=== PATIENT | female | born 1945 | race Caucasian/White ===

== ENCOUNTER 2017-10-29 14:41 | Emergency (ER) | payer MEDICARE, MEDICAID, SELFPAY ==
[2017-10-29 15:23] VITALS: BP 160/69; PULSE 69; RESP 18; TEMP 36.6; O2SAT 98
[2017-10-29 15:40] LABS: Bilirubin Negative (Negative); Blood Moderate (Negative); Clarity Sl Cloudy; Glucose Negative (Negative); Ketones Trace mg/dL (Negative); Leukocyte Esterase Large (Negative); Nitrite Negative (Negative); Specific Gravity >= 1.030 (1.005-1.025); Urobilinogen 0.2 EU/dL (Up TO 0.2); pH 5.5 (5-8)
[2017-10-29 15:47] LABS: C & S Indicated? Yes; RBC >50 (0-2); WBC >50 HPF (0-5)
--- NOTE | 2017-10-29 15:55 | W.ED.GENAD ---
Discharge Plan Disposition Patient Disposition: HOME Discharge Details Chief Complaint: Urinary Clinical Impression: UTI (urinary tract infection) Primary Care Provider: Lillian uHggins ED Provider: Luann Gaspar Home Meds and New Rx's Prescriptions: New cephalexin 250 mg/5 mL suspension for reconstitution 500 mg PO BID 5 Days Qty: 100 RF: 0 Continue multivitamin [Daily Multi-Vitamin] 1 EACH tablet 1 ea PO DAILY RF: 0 metoprolol tartrate 100 MG tablet 100 mg PO BID Qty: 180 RF: 0 apixaban [Eliquis] 5 MG tablet 5 mg PO BID Qty: 60 RF: 3 alprazolam [Xanax] 0.25 MG tablet 0.25 mg PO BID PRN PRN (Reason: Anxiety) Qty: 14 RF: 0 Discharge Instructions Instructions: Urinary Tract Infection in Women (ED) Additional Instructions: Encourage hydration. Please take antibiotics as prescribed. Even if symptoms improve please finish the entire course. If you develop adverse reactions please contact the department or your primary care provider. Please follow-up with primary care provider this week if symptoms persist. If you develop flank pain, fever/chills, abdominal pain, nausea vomiting or other new/worsening symptoms please seek care urgently once again. Referrals: Lillian Huggins MD [Primary Care Provider] - Discharge Data Discharge Date/Time-TO BE ENTERED AT DEPARTURE: 10/29/17 16:22 Medical Decision Making MDM Narrative Medical decision making narrative: Patient presents today with concern for urinary tract infection. Please see UTI. On exam, patient appears nontoxic. No pain is elicited with palpation of the abdomen. No CVA tenderness. Urinalysis is suggestive of urinary tract infection. Patient typically responds quite well to oral Bactrim. However, I did contact the patient's local pharmacy and reviewed her previous antibiotic usage. Patient did have Bactrim in July. Literature suggest not to re-dose of Bactrim within 6 months. Patient still will be placed on Keflex. She does have an allergy to amoxicillin but this has been topical historically and localized to finger tip. She believes she has been on Keflex historically but is not sure. Patient was encouraged to hydrate. We discussed new/worsening symptoms when to seek care urgently once again. Advised follow-up with primary care this week for reevaluation. All the questions and concerns were addressed and she is in agreement Lab Data Lab Results 10/29/17 Range/Units 13:30 Urine Color Yellow (Yellow) Urine Clarity Sl cloudy Urine pH 5.5 (5-8) Ur Specific Hardin >= 1.030 H (1.005-1.025) Urine Protein 100 H (Negative) mg/dL Urine Ketones Trace H (Negative) mg/dL Urine Blood Moderate H (Negative) Urine Nitrite Negative (Negative) Urine Bilirubin Negative (Negative) Urine Urobilinogen 0.2 (Up TO 0.2) EU/dL Ur Leukocyte Esterase Large H (Negative) Urine RBC >50 H (0-2) Urine WBC >50 (0-5) HPF Ur Epithelial Cells Not Applicable Urine Crystals Not Applicable Urine Bacteria Not Applicable Urine Mucus Not Applicable Ur Culture Indicated? Yes Urine Glucose Negative (Negative) mg/dL HPI - General Adult General Mode of arrival: ambulatory. Date/Time Provider Initiated Documentation: 10/29/17 15:46. Limitations to Documentation: no limitations. Information obtained by: patient. HPI Narrative: Patient is a 71-year-old female presenting today with chief complaint of UTI. Patient reports that she has dysuria, increased frequency and urgency which began to day. She reports that she has had multiple urinary tract infections in the past. Most recently was several months ago. Reports that she typically takes Bactrim for urinary tract infections but is unable to take pills. She denies any flank pain. States she has had abdominal pain low centrally and reports this is burning. Reports that this waxes and wanes. She states that this pain is typical when she has a urinary tract infection. She denies any fevers or chills. Denies any hematuria. Denies any changes in her bowel habits. Related Data Home Medications Medication Instructions Recorded Confirmed multivitamin [Daily Multi-Vitamin] 1 ea PO DAILY 11/23/16 10/29/17 Previous Rx's Medication Instructions Recorded apixaban [Eliquis] 5 mg PO BID #60 tab 12/20/16 alprazolam [Xanax] 0.25 mg PO BID PRN PRN #14 tablet 01/19/17 cephalexin 500 mg PO BID 5 Days #100 ml 10/29/17 Allergies Allergy/AdvReac Type Severity Reaction Status Date / Time amoxicillin [Amoxicillin] AdvReac Mild Topical Unverified 10/29/17 15:27 Irritation General Stated Complaint: Urinary AURE: 4 Review of Systems Constitutional Reports as per HPI, Denies chills and Denies fever(s) Cardiovascular Denies chest pain, Denies chest pain with activity, Denies diaphoresis and Denies dyspnea Respiratory Denies cough and Denies dyspnea Gastrointestinal Reports as per HPI Genitourinary Reports as per HPI Musculoskeletal Denies back pain Integumentary/Breasts Denies rash and Denies skin pain PFS Social History Smoking/Tobacco Use Status: Former Tobacco Use Exam Const General: cooperative, healthy appearing, comfortable and no acute distress Nutritional Appearance: overweight Orientation: alert Resp Effort & Inspection: normal respiratory effort, able to speak in complete sentences and no respiratory distress Auscultation: clear to auscultation bilaterally Cardio Rhythm: regular rhythm Heart Sounds: S1 normal and S2 normal GI Inspection: normal to inspection and non-distended Palpation: soft, not firm, no guarding and nontender Back/Spine/Pelvis Back: no CVA tenderness Skin General skin exam: no rashes or lesions noted Neuro General: alert and awake Cognition: normal cognition Speech: speech normal Gait: normal gait Course Vital Signs Temperature 36.6 C 10/29/17 15:23 Pulse 69 10/29/17 15:23 Respiratory Rate 18 10/29/17 15:23 Blood Pressure 160/69 H 10/29/17 15:23 Pulse Oximetry 98 10/29/17 15:23 Temperature 36.6 C 10/29/17 15:23 Pulse 69 10/29/17 15:23 Respiratory Rate 18 10/29/17 15:23 Blood Pressure 160/69 H 10/29/17 15:23 Pulse Oximetry 98 10/29/17 15:23 Lab/Test Results Lab/Test Results: Laboratory Tests 10/29/17 13:30 Urine Color Yellow Urine Clarity Sl cloudy Urine pH 5.5 Ur Specific Hardin >= 1.030 H Urine Protein 100 H Urine Ketones Trace H Urine Blood Moderate H Urine Nitrite Negative Urine Bilirubin Negative Urine Urobilinogen 0.2 Ur Leukocyte Esterase Large H Urine RBC >50 H Urine WBC >50 Ur Epithelial Cells Not Applicable Urine Crystals Not Applicable Urine Bacteria Not Applicable Urine Mucus Not Applicable Ur Culture Indicated? Yes Urine Glucose Negative
== END 2017-10-29 16:22 | disposition home or self-care (01) ==
PROVIDERS: Student in an Organized Health Care Education/Training Program; Emergency Provider Physician Assistant; PCP Family Medicine
DX: N39.0 Urinary tract infection, site not specified (principal); B97.89 Other viral agents as the cause of diseases classified elsewhere
CPT/HCPCS: 99283; 81003; 81015; 87086

== ENCOUNTER → 2017-11-10 14:28 | Outpatient (BNVA) | payer MEDICARE, MEDICAID, SELFPAY | PROVIDERS: PCP Family Medicine; Visit Provider Urology | DX: R30.0 Dysuria (principal); N39.0 Urinary tract infection, site not specified | CPT/HCPCS: 81003; 99213 ==

== ENCOUNTER 2017-12-02 00:27 | Outpatient (CLI) | payer MEDICARE, MEDICAID, SELFPAY ==
--- NOTE | 2017-12-02 08:18 | DI.US_ITS ---
SYMPTOMS/DIAGNOSIS: RECURRENT UTI, N39.0, ? STONE/HYDRO RENAL ULTRASOUND: The right kidney measures 8.6 cm in length. The left kidney measures 8.9 cm in length. The parenchymal thickness appears normal. No stones or hydronephrosis is seen. The bladder was inadequately prepped with a volume of 19 cc's. Both ureteral jets were visualized. IMPRESSION: No evidence of hydronephrosis. The kidneys are small in size but otherwise unremarkable.
== END 2017-12-02 00:47 ==
PROVIDERS: PCP Family Medicine; Visit Provider Urology
DX: N39.0 Urinary tract infection, site not specified (principal); Z87.440 Personal history of urinary (tract) infections
CPT/HCPCS: 76770; 99213

== ENCOUNTER 2018-01-24 00:43 | Outpatient (CLI) | payer MEDICARE, MEDICAID, SELFPAY ==
--- NOTE | 2018-01-24 13:55 | DI.RAD_ITS ---
SYMPTOMS/DIAGNOSIS: OSTEOPENIA, M85.88 DEXA SCAN: Routine examination was performed. Evaluation of the lumbar spine shows a total T score of -0.3 and a Z score of 2.0. This is within normal limits. This compares with a total T score of -1.1 from 2007. Evaluation of the left hip shows a total T score of -1.4 and a Z score of 0.2. This is consistent with osteopenia and an increased fracture risk. This compares with a total T score of -1.9 from 2007. IMPRESSION: Osteopenia in the left hip.
== END 2018-01-24 01:03 ==
PROVIDERS: PCP Family Medicine; Visit Provider Family Medicine
DX: M85.88 Other specified disorders of bone density and structure, other site (principal)
CPT/HCPCS: 77080

== ENCOUNTER 2018-04-03 15:13 | Outpatient (REF) | payer MEDICARE, MEDICAID, SELFPAY ==
[2018-04-03 18:37] LABS: HCT 43.8 % (36.0-46.0); HGB 13.9 g/dL (12.0-15.5); Mean Corp. HGB Concentration 31.7 g/dL (32.0-36.0); Mean Corpuscular Hemoglobin 32.6 pg (27.0-33.0); Mean Corpuscular Volume 102.6 fL (80-95); Mean Platelet Volume 12.6 fL (8.0-11.0); Platelet Count 208 x1000/uL (130-400); RBC 4.27 m/cumm (4.00-5.20); RBC Distribution Width 13.1 % (11.7-14.6); White Blood Cell Count 5.69 k/cumm (4.4-10.8)
[2018-04-03 18:45] LABS: ALT 33 U/L (12-78); AST 28 U/L (15-37); Albumin 3.4 g/dL (3.4-5.0); Alkaline Phosphatase 130 U/L (46-116); Anion Gap 4.7 mmol/L (3-11); BUN 16 mg/dL (7-18); Bilirubin, Total 0.3 mg/dL (0.2-1.0); CO2 31.3 mmol/L (21.0-32.0); CREATININE 0.81 mg/dL (0.55-1.02); Calcium 9.2 mg/dL (8.5-10.1); Chloride 105 mmol/L (98-107); Glucose 102 mg/dL (70-100); Potassium 4.9 mmol/L (3.5-5.1); Sodium 141 mmol/L (136-145); Total Protein 6.6 g/dL (6.4-8.2)
[2018-04-03 19:12] LABS: FREE T4 1.27 ng/dL (0.76-1.46)
== END 2018-04-03 15:33 ==
LOC: NCHCN 15:13
PROVIDERS: PCP Family Medicine; Visit Provider Family Medicine
DX: R53.83 Other fatigue (principal)
CPT/HCPCS: 80053; 85027; 84439; 84443

== ENCOUNTER → 2018-04-20 13:28 | Outpatient (BNVA) | payer MEDICARE, MEDICAID, SELFPAY | PROVIDERS: PCP Family Medicine; Visit Provider Urology | DX: Z87.440 Personal history of urinary (tract) infections (principal) | CPT/HCPCS: 99213 ==

== ENCOUNTER 2018-07-19 14:06 | Outpatient (REF) | payer MEDICARE, MEDICAID, SELFPAY | END 2018-07-19 14:26 | LOC: LBN 14:06 | PROVIDERS: PCP Family Medicine; Visit Provider Urology | DX: N39.0 Urinary tract infection, site not specified (principal) | CPT/HCPCS: 87086 ==

== ENCOUNTER → 2018-07-21 13:05 | Outpatient (BNVA) | payer MEDICARE, MEDICAID, SELFPAY | PROVIDERS: PCP Family Medicine; Visit Provider Urology | DX: N39.0 Urinary tract infection, site not specified (principal) | CPT/HCPCS: 99213 ==

== ENCOUNTER 2018-08-08 20:42 | Emergency (ER) | payer MEDICARE, MEDICAID, SELFPAY ==
[2018-08-08] VITALS (45 sets, daily range): BP systolic 104–185; BP diastolic 41–110; PULSE 49–131; RESP 10–28; TEMP 36.8; O2SAT 94–98
--- NOTE | 2018-08-08 21:12 | ED.GENADUL_ITS ---
Discharge Plan Disposition Patient Disposition: HOME Condition: Stable Discharge Details Chief Complaint: Palpitatns Clinical Impression: Atrial fibrillation with RVR Primary Care Provider: Lillian Huggins ED Provider: Quirino Ferguson Home Meds and New Rx's Prescriptions: No Action nitrofurantoin 25 mg/5 mL suspension 50 mg PO QID Qty: 240 RF: 2 multivitamin [Daily Multi-Vitamin] 1 EACH tablet 1 ea PO DAILY RF: 0 metoprolol tartrate 100 MG tablet 100 mg PO BID Qty: 180 RF: 0 apixaban [Eliquis] 5 MG tablet 5 mg PO BID Qty: 60 RF: 3 Discharge Instructions Instructions: Atrial Fibrillation (ED) Additional Instructions: follow up with your primary care provider within a week if you have chest pain/pressure, difficulty breathing or feel your heart rate is elevated return to the emergency department Medical Decision Making 72 yo female with hx of afib on eliquis who comes in with feeling irregular heart beat starting tonight. Denies any pain or pressure, no sob, diaphoresis or n/v. She states she sometimes misses her dose of eliquis and metoprolol and seems to do this quite frequently on history. She is in no distress, noted to be in afib with rvr rates ranging from 110-140 on exam. no other concerning findings on her exam at this time, will tx with dilt and monitor and check for electrolyte abnormalities and monitor. Given lack of chest pain or sob, no evidence of dvt, doubt entities such as acs or pe' pt's hr now in the 60's after 10mg IV dilt and feels better, still in afib. awaiting labs, bp stable labs unremarkable and hr stil well controlled. Will d/c home and she will take her oral metoprolol. She states she misses her metoprolol and eliquis due to abnormal sleep schedule. I am going to place her on our f/u list for care management to reach out to her to see if she would like services such as home health nursing to assist with medication management. Advised f/u with pcp within a week and return precautions given Differential Diagnosis afib, electrolyte abnormality, med noncompliance Medical Records Medical records reviewed: Yes I reviewed the patient's medical records. Lab Data Lab results reviewed: Yes I reviewed the patient's lab results. ECG Data Attestation: I personally reviewed and interpreted this ECG (s) as follows: Prior ECG tracings: not available for review Interpretation: afib, rate of 120, qtc 442 2nd ekg shows afib with rates of 80's, qtc 449 HPI General Mode of arrival: wheelchair . Date/Time Provider Initiated Documentation: 08/08/18 20:55 . Limitations to Documentation: no limitations . Information obtained by: patient . History of Present Illness 72 year old F presents to the emergency department with the chief complaint of palpitations, described as moderate, Quality is described as other (irregular), and is localized to the chest. No relieving factors improve symptom(s), No exacerbating factors reported . Patient notes no other symptoms.. Patient did receive the following treatments prior to arrival, none Related Data Home Medications Medication Instructions Recorded Confirmed multivitamin [Daily Multi-Vitamin] 1 ea PO DAILY 11/23/16 11/10/17 apixaban [Eliquis] 5 mg PO BID #60 tab 12/20/16 11/10/17 metoprolol tartrate 100 mg PO BID #180 tab-cap 02/16/17 11/10/17 nitrofurantoin 25 mg/5 mL oral 50 mg PO QID #240 ml 04/20/18 04/20/18 suspension Previous Rx's Medication Instructions Recorded apixaban [Eliquis] 5 mg PO BID #60 tab 12/20/16 metoprolol tartrate 100 mg PO BID #180 tab-cap 02/16/17 nitrofurantoin 25 mg/5 mL oral 50 mg PO QID #240 ml 04/20/18 suspension Allergies Allergy/AdvReac Type Severity Reaction Status Date / Time amoxicillin [Amoxicillin] AdvReac Mild Topical Verified 04/20/18 13:49 Irritation General Stated Complaint: Palpitatns AURE: 2 Review of Systems Review of Systems All systems reviewed & are unremarkable except as noted in HPI and below Constitutional Denies chills, Denies fever(s) and Denies weakness Cardiovascular Denies chest pain and Denies dyspnea Respiratory Denies dyspnea Gastrointestinal Denies abdominal pain, Denies nausea and Denies vomiting Genitourinary Denies dysuria Musculoskeletal Denies joint swelling Integumentary/Breasts Denies rash Neurologic Denies weakness PFSH Social History Smoking/Tobacco Use Status: Former Tobacco Use Alcohol Intake: never Drug use: Never Substance use type: does not use Do you feel safe at home: Yes Do you feel safe in your relationship?: Yes Exam Const General: no acute distress Orientation: alert HENMT Head: normal to inspection Ears: external ears normal General nose exam: external nose normal Mouth: moist mucous membranes Eyes General: appearance normal, both eyes and all related structures Neck Neck: normal visual inspection Resp Effort & Inspection: normal respiratory effort and able to speak in complete sentences Cardio Rate: tachycardic Skin General skin exam: no rashes or lesions noted Neuro General: alert and oriented x3 Extrem General: normal to inspection Psych Mental Status: mental status grossly normal Course Vital Signs Temperature 36.8 C 08/08/18 21:07 Pulse 131 H 08/08/18 21:07 Respiratory Rate 20 08/08/18 21:07 Blood Pressure 185/107 H 08/08/18 21:07 Pulse Oximetry 98 08/08/18 21:07 Temperature 36.8 C 08/08/18 21:07 Temperature Source Skin 08/08/18 21:07 Pulse 131 H 08/08/18 21:07 Respiratory Rate 20 08/08/18 21:07 Blood Pressure 185/107 H 08/08/18 21:07 Blood Pressure Position Sitting 08/08/18 21:07 Pulse Oximetry 98 08/08/18 21:07 Oxygen Delivery Method Room Air 08/08/18 21:07 Oxygen Flow Rate 0 08/08/18 21:07 Pain Level 0 08/08/18 21:07 Critical Care Time Critical Care Time: Yes Total Critical Care Time: 60 (minutes) Attestation: time spent administering IV diltiazem in a patient with afib with rvr, frequent monitoring and ecg/lab review on patient with potential to deteriorate at any time
[2018-08-08] MEDS: Normal Saline Flush 10 ML SYR IVP (21:25)
[2018-08-08] MEDS: Normal Saline 1,000 ML 1000 ML IV (21:26)
[2018-08-08] MEDS: dilTIAZem 25 MG/5 ML VIAL 20 MG IVP (21:27)
[2018-08-08 21:43] LABS: Absolute Basophil Count 0.02 k/cumm (0.0-0.2); Absolute Eosinophil Count 0.08 k/cumm (0.0-0.7); Absolute Lymphocyte Count 2.67 k/cumm (1.2-3.4); Absolute Monocyte Count 0.64 k/cumm (0.11-0.7); Absolute Neutrophil Count 3.47 k/cumm (1.2-6.7); Basophils % 0.3; Eosinophils % 1.2; HCT 45.8 % (36.0-46.0); HGB 14.8 g/dL (12.0-15.5); Lymphocytes % 38.8; Mean Corp. HGB Concentration 32.3 g/dL (32.0-36.0); Mean Corpuscular Hemoglobin 32.5 pg (27.0-33.0); Mean Corpuscular Volume 100.4 fL (80-95); Mean Platelet Volume 12.1 fL (8.0-11.0); Monocytes % 9.3; Neutrophils % 50.4; Platelet Count 207 x1000/uL (130-400); RBC 4.56 m/cumm (4.00-5.20); RBC Distribution Width 13.6 % (11.7-14.6); White Blood Cell Count 6.88 k/cumm (4.4-10.8)
[2018-08-08 22:28] LABS: ALT 35 U/L (12-78); AST 26 U/L (15-37); Albumin 3.7 g/dL (3.4-5.0); Alkaline Phosphatase 131 U/L (46-116); Anion Gap 11.5 mmol/L (3-11); BUN 16 mg/dL (7-18); Bilirubin, Total 0.4 mg/dL (0.2-1.0); CO2 27.5 mmol/L (21.0-32.0); CREATININE 0.79 mg/dL (0.55-1.02); Calcium 9.2 mg/dL (8.5-10.1); Chloride 103 mmol/L (98-107); Glucose 112 mg/dL (70-100); NT-proBNP 249 pg/mL; Potassium 3.5 mmol/L (3.5-5.1); Sodium 142 mmol/L (136-145); Total Protein 7.5 g/dL (6.4-8.2)
[2018-08-08 22:29] LABS: Troponin I < 0.02 ng/mL (0.00-0.06)
[2018-08-08 23:04] LABS: Prothrombin Time 9.7 sec (9.3-11.0)
== END 2018-08-08 23:13 | disposition home or self-care (01) ==
PROVIDERS: Emergency Provider Emergency Medicine; PCP Family Medicine
DX: I48.0 Paroxysmal atrial fibrillation (principal); Z79.01 Long term (current) use of anticoagulants; Z91.14 Patient's other noncompliance with medication regimen
CPT/HCPCS: 36415; 80053; 93005; 96361; 96374; 99284; 83735; 83880; 84484; 85025; 85610; 85730; 93010

== ENCOUNTER 2018-09-11 15:32 | Outpatient (RCR) | payer SELFPAY | END 2018-09-20 23:59 | disposition home or self-care (01) | LOC: CR 15:32 | PROVIDERS: PCP Family Medicine; Visit Provider Family Medicine | DX: Z51.89 Encounter for other specified aftercare (principal) ==

== ENCOUNTER 2018-09-18 01:21 | Outpatient (CLI) | payer MEDICARE, MEDICAID, SELFPAY ==
--- NOTE | 2018-09-25 09:21 | HOLTER_ITS ---
DATE OF DICTATION: September 23, 2018 DATE OF RECORDING: September 19, 2018 DATE OF ANALYSIS: September 21, 2018 REFERRING PHYSICIAN: Not recorded. INDICATION: AFib/SVT FINDINGS: 1. Baseline sinus rhythm, 55-113 bpm, average 68 bpm. 2. Rare PAC, 95 in two days, few atrial runs, maximally 9 beats at 156 bpm. 3. Rare PVC, 68 in two days, no VT. 4. No significant pauses. 5. Symptoms: a. Thump in chest with sinus rhythm and one PAC. b. Heart racing with sinus tachycardia, 113 bpm and atrial run. c. Sensation in chest with sinus rhythm, 72 bpm. d. Flutter with sinus rhythm, 68 bpm. e. Ringing in ears with sinus rhythm, 78 bpm.
== END 2018-09-18 01:41 ==
PROVIDERS: PCP Family Medicine; Visit Provider Family Medicine
DX: I48.91 Unspecified atrial fibrillation (principal); I47.1 Supraventricular tachycardia; I49.1 Atrial premature depolarization; I49.3 Ventricular premature depolarization
CPT/HCPCS: 93225

== ENCOUNTER 2018-09-21 11:07 | Outpatient (CLI) | payer MEDICARE, MEDICAID, SELFPAY | END 2018-09-21 11:27 | PROVIDERS: PCP Family Medicine; Visit Provider Family Medicine | DX: I48.91 Unspecified atrial fibrillation (principal); I47.1 Supraventricular tachycardia; I49.1 Atrial premature depolarization; I49.3 Ventricular premature depolarization | CPT/HCPCS: 93226 ==

== ENCOUNTER 2018-09-23 09:41 | Outpatient (CLI) | payer MEDICARE, MEDICAID, SELFPAY | END 2018-09-23 10:01 | PROVIDERS: PCP Family Medicine; Referring Provider Family Medicine; Visit Provider Internal Medicine Cardiovascular Disease | DX: I48.91 Unspecified atrial fibrillation (principal); I47.1 Supraventricular tachycardia; I49.1 Atrial premature depolarization; I49.3 Ventricular premature depolarization | CPT/HCPCS: 93227 ==

== ENCOUNTER 2018-10-18 13:00 | Outpatient (RCR) | payer SELFPAY ==
--- NOTE | 2018-09-22 14:23 | PR3E_ITS ---
72 year old female enrolled in maintenance phase, 3 days per week, for multiple cardiac risk factors. PMH: AFIB, paroxysmal SVT, UTI recurrent, obesity, hearing loss, edema, former smoker quit 2011, pyuria First day of exercise: 09/22/18: BP at rest 164/83, HR rest 65 bpm. Patient completed 9 minutes of exercise: UBE 3 minutes/2x, and recumbent bike 3 minutes. HR w/ exercise ranged 74-78 bpm. GAIL RPE scores 13-15. BP with exercise ranged 134-144/69-82. Tolerated exercise regimen without any adverse signs or symptoms. No concerns at this time, will continue to progress as tolerated.
== END 2018-10-21 23:59 | disposition home or self-care (01) ==
LOC: CR 13:00
PROVIDERS: PCP Family Medicine; Visit Provider Family Medicine
DX: Z51.89 Encounter for other specified aftercare (principal)
CPT/HCPCS: S9472

== ENCOUNTER → 2018-10-24 12:49 | Outpatient (BNVA) | payer MEDICARE, MEDICAID, SELFPAY | PROVIDERS: PCP Family Medicine; Visit Provider Urology | DX: R14.0 Abdominal distension (gaseous) (principal); R12 Heartburn; Z87.440 Personal history of urinary (tract) infections | CPT/HCPCS: 99213 ==

== ENCOUNTER 2018-11-20 13:00 | Outpatient (RCR) | payer SELFPAY | END 2018-11-20 23:59 | disposition home or self-care (01) | LOC: CR 13:00 | PROVIDERS: PCP Family Medicine; Visit Provider Family Medicine | DX: Z51.89 Encounter for other specified aftercare (principal) | CPT/HCPCS: S9472 ==

== ENCOUNTER 2018-12-20 13:30 | Outpatient (RCR) | payer SELFPAY | END 2018-12-21 23:59 | disposition home or self-care (01) | LOC: CR 13:30 | PROVIDERS: PCP Family Medicine; Visit Provider Family Medicine | DX: Z51.89 Encounter for other specified aftercare (principal) | CPT/HCPCS: S9472 ==

== ENCOUNTER 2018-12-25 03:08 | Emergency (ER) | payer MEDICARE, MEDICAID, SELFPAY ==
[2018-12-25 03:06] VITALS: BP 136/73; PULSE 85; RESP 14; TEMP 36.8; O2SAT 95
--- NOTE | 2018-12-25 03:21 | NUR.NOTE ---
KAJAL Greenwood from home with c/o palpitations. Pt awoke from sleep at 0200 with feeling heart racing. Reports intermittent afib. Last episode ? 3 mos ago. Denies CP, SOB. Feeling well prior to going to bed. Arrives in afib, 80-90's after 10mg diltiazem en route from EMS through [facility].
--- NOTE | 2018-12-25 03:23 | ED.GENADUL_ITS ---
Discharge Plan Disposition Patient Disposition: HOME Condition: Good Discharge Details Chief Complaint: Palpitatns Clinical Impression: Atrial fibrillation Primary Care Provider: Lillian Huggins ED Provider: Timothy Hayes Home Meds and New Rx's Prescriptions: Continued multivitamin [Daily Multi-Vitamin] 1 EACH tablet 1 ea PO DAILY RF: 0 metoprolol tartrate 100 MG tablet 100 mg PO BID Qty: 180 RF: 0 Eliquis 5 MG tablet 5 mg PO BID Qty: 60 RF: 3 Discharge Instructions Instructions: Atrial Fibrillation (ED) Additional Instructions: Take your Eliquis this morning at regular time. Take your metoprolol and Eliquis tonight a little earlier than usual. Resume normal schedule tomorrow. Urine culture is pending. Follow-up with primary care on Tuesday as planned. May follow-up in cardiology clinic as well. Return to ED if persistently elevated heart rate, chest pain, shortness of breath, lightheadedness or fainting. Referrals: [facility] [Provider Group] Lillian Huggins MD [Primary Care Provider] - Medical Decision Making Patient arrives here with rate controlled atrial fibrillation on the monitor and EKG. She has experienced no chest pain or pressure. Patient has a history of paroxysmal atrial fibrillation. She is on metoprolol and Eliquis. Currently rate controlled after IV diltiazem. Will check basic labs including hemoglobin and electrolytes as well as urinalysis as she has history of UTIs. Last took her metoprolol at 9:30 PM. Will observe here for period of time to be sure she remains rate controlled. Patient has, for the most part, remained rate controlled. Labs with slightly low potassium which has been orally replenished. Hemoglobin and magnesium are fine. Urinalysis trace leukocytes on dip. 5-10 white cells and rare epithelial cells. Since asymptomatic will wait and see if culture actually grows anything. She reports having follow-up with primary care on Tuesday. Will give morning dose of metoprolol here. Has not seen cardiology in a couple years, will refer to cardiology clinic care. Return to ED for persistent elevated heart rate, chest pain, shortness of breath, lightheadedness/syncope. Medical Records Medical records reviewed: Yes I reviewed the patient's medical records. Lab Data Lab results reviewed: Yes I reviewed the patient's lab results. ECG Data Attestation: I personally reviewed and interpreted this ECG (s) as follows: Prior ECG tracings: available for review Interpretation: Atrial fibrillation at a rate of 88. Normal axis and intervals. No acute ST changes. No significant change from EKG dated 08/08/2018. HPI General Mode of arrival: EMS . Date/Time Provider Initiated Documentation: 12/25/18 03:48 . Limitations to Documentation: no limitations . Information obtained by: patient, RN notes reviewed and old records reviewed . HPI Narrative: Patient presents to ED by EMS with palpitations. Patient has a history of paroxysmal atrial fibrillation. She awoke with palpitations tonight. Because it was rapid she did end up calling EMS. They found her to have a rate in the 130 range. She was given 10 mg of IV diltiazem and arrives here rate controlled. She has not been ill recently. She had no chest pain or pressure. She has no shortness of breath. She had no lightheaded/dizzy feeling. She missed a dose of metoprolol a couple days ago but nothing recent. Related Data Home Medications Medication Instructions Recorded Confirmed multivitamin [Daily Multi-Vitamin] 1 ea PO DAILY 11/23/16 12/25/18 Eliquis 5 mg PO BID #60 tab 12/20/16 12/25/18 metoprolol tartrate 100 mg PO BID #180 tab-cap 02/16/17 12/25/18 Previous Rx's Medication Instructions Recorded Eliquis 5 mg PO BID #60 tab 12/20/16 metoprolol tartrate 100 mg PO BID #180 tab-cap 02/16/17 Allergies Allergy/AdvReac Type Severity Reaction Status Date / Time amoxicillin [Amoxicillin] AdvReac Mild Topical Verified 10/24/18 13:04 Irritation General Stated Complaint: Palpitatns AURE: 3 Review of Systems Narrative: As documented in HPI otherwise negative as below. Const: no fever, chills, weakness Resp: no cough, SOB, pleuritic pain CV: no CP, diaphoresis, edema, syncope GI: no abdominal pain, nausea, vomiting, diarrhea Neuro: no headache, numbness, focal weakness, confusion [facility] Medical History Atrial fibrillation (Chronic) Social History Smoking/Tobacco Use Status: Former Tobacco Use Alcohol Intake: never Drug use: Never Substance use type: does not use Do you feel safe at home: Yes Do you feel safe in your relationship?: Yes Exam Narrative Exam Narrative: Vitals: Afebrile. Normal vitals and room air pulse ox. Const: Obese elderly female in NAD. HEENT: NC/AT. Normal facial exam. Eyes: Normal conjunctiva and sclera. Neck: Supple. Trachea midline. Lungs: Normal respiratory effort. Lungs are clear. Cor: Irr/Irr without murmur/gallop. Good radial pulses. GI: Soft. NT/ND. No guarding or rebound. Neuro: A+O x 3. CN grossly in tact. Normal strength, sensation, speech, mentation. Ext: No C/C/E. Skin: Warm and dry without rash. Course Vital Signs Vital signs: Vital Signs Temperature 98.2 F 12/25/18 03:06 Pulse 85 12/25/18 03:06 Respiratory Rate 14 12/25/18 03:06 Blood Pressure 136/73 12/25/18 03:06 Pulse Oximetry 95 12/25/18 03:06 Temperature 98.2 F 12/25/18 03:06 Temperature Source Skin 12/25/18 03:06 Pulse 85 12/25/18 03:06 Respiratory Rate 14 12/25/18 03:06 Respiratory Effort 12/25/18 03:13 Blood Pressure 136/73 12/25/18 03:06 Blood Pressure Position Supine 12/25/18 03:06 Pulse Oximetry 95 12/25/18 03:06 Oxygen Delivery Method Room Air 12/25/18 03:06 Oxygen Flow Rate 0 12/25/18 03:06 Pain Level 0 12/25/18 03:06
[2018-12-25 03:42] LABS: Anion Gap 11.4 mmol/L (3-11); BUN 14 mg/dL (7-18); CO2 26.6 mmol/L (21.0-32.0); CREATININE 0.75 mg/dL (0.55-1.02); Calcium 9.2 mg/dL (8.5-10.1); Chloride 105 mmol/L (98-107); Glucose 112 mg/dL (70-100); Potassium 3.4 mmol/L (3.5-5.1); Sodium 143 mmol/L (136-145)
[2018-12-25 03:47] LABS: Abs Immature Grans 0.02 k/cumm (0.0-0.09); Absolute Basophil Count 0.02 k/cumm (0.0-0.2); Absolute Lymphocyte Count 3.51 k/cumm (1.2-3.4); Absolute Monocyte Count 0.62 k/cumm (0.11-0.7); Absolute Neutrophil Count 3.49 k/cumm (1.2-6.7); Basophils % 0.3; Eosinophils % 1.3; HCT 44.9 % (36.0-46.0); Immature Grans % 0.3; Lymphocytes % 45.2; Mean Corp. HGB Concentration 33.4 g/dL (32.0-36.0); Mean Corpuscular Hemoglobin 33.6 pg (27.0-33.0); Mean Corpuscular Volume 100.4 fL (80-95); Neutrophils % 44.9; Platelet Count 219 x1000/uL (130-400); RBC 4.47 m/cumm (4.00-5.20); RBC Distribution Width 13.8 % (11.7-14.6); White Blood Cell Count 7.76 k/cumm (4.4-10.8)
[2018-12-25] MEDS: Potassium Chloride Liquid 20 MEQ PKT 40 MEQ PO (03:54)
--- NOTE | 2018-12-25 04:11 | NUR.NOTE ---
Up to BR to provide urine spec with 1 assist and steady gait.
[2018-12-25 04:26] LABS: Bilirubin Negative (Negative); Blood Negative (Negative); Clarity Clear (Clear); Glucose Negative (Negative); Ketones Negative (Negative); Leukocyte Esterase Trace (Negative); Nitrite Negative (Negative); Specific Gravity 1.015 (1.005-1.025); Urobilinogen 0.2 EU/dL (Up TO 0.2)
[2018-12-25 04:55] LABS: Epithelial Cells Few HPF (Negative); RBC Negative (0-2)
[2018-12-25 04:56] LABS: Bacteria Rare HPF (Negative); Casts Negative LPF (Negative); Crystals Negative HPF (Negative); Mucus Negative (Negative); Other Cells Moderate Yeast (Negative)
[2018-12-25 04:57] LABS: C & S Indicated? Yes
[2018-12-25 05:11] VITALS: BP 133/80; PULSE 91; RESP 15; O2SAT 98
[2018-12-25] MEDS: Metoprolol 50 MG TAB 100 MG PO (05:17)
--- NOTE | 2018-12-25 05:48 | NUR.NOTE ---
IV removed. discharge instructions reviewed with verbal understanding. aware to f/u with pcp as planned. To exit via [facility] to await RCT for transport home.
== END 2018-12-25 05:25 | disposition home or self-care (01) ==
LOC: ER 05:29
PROVIDERS: Emergency Provider Emergency Medicine; PCP Family Medicine
DX: I48.91 Unspecified atrial fibrillation (principal); Z79.01 Long term (current) use of anticoagulants
CPT/HCPCS: 36415; 80048; 93005; 99284; 81003; 81015; 83735; 85025; 87086; 93010

== ENCOUNTER 2019-01-17 14:32 | Outpatient (RCR) | payer SELFPAY | END 2019-01-20 23:59 | disposition home or self-care (01) | LOC: CR 14:32 | PROVIDERS: PCP Family Medicine; Visit Provider Family Medicine | DX: Z51.89 Encounter for other specified aftercare (principal) | CPT/HCPCS: S9472 ==

== ENCOUNTER 2019-02-07 14:40 | Outpatient (RCR) | payer SELFPAY | END 2019-02-20 23:59 | disposition home or self-care (01) | LOC: CR 14:40 | PROVIDERS: PCP Family Medicine; Visit Provider Family Medicine | DX: Z51.89 Encounter for other specified aftercare (principal) | CPT/HCPCS: S9472 ==

== ENCOUNTER 2019-03-05 08:56 | Outpatient (CLI) | payer MEDICARE, MEDICAID, SELFPAY | END 2019-03-05 09:16 | PROVIDERS: PCP Family Medicine; Visit Provider Internal Medicine Cardiovascular Disease | DX: I48.0 Paroxysmal atrial fibrillation (principal) | CPT/HCPCS: 99204; 99215; 93005; 93010 ==

== ENCOUNTER → 2019-03-20 15:11 | Outpatient (BNVA) | payer MEDICARE, MEDICAID, SELFPAY | PROVIDERS: PCP Family Medicine; Referring Provider Family Medicine; Visit Provider Urology | DX: N39.0 Urinary tract infection, site not specified (principal) | CPT/HCPCS: 81003; 99213 ==

== ENCOUNTER 2019-03-21 13:13 | Outpatient (REF) | payer MEDICARE, MEDICAID, SELFPAY ==
[2019-03-21 19:45] LABS: Hemoglobin A1C 5.8 % (3.8-5.6)
== END 2019-03-21 13:33 ==
LOC: NCHCN 13:13
PROVIDERS: PCP Family Medicine; Visit Provider Family Medicine
DX: R73.03 Prediabetes (principal)
CPT/HCPCS: 83036

== ENCOUNTER 2019-03-21 13:49 | Outpatient (RCR) | payer SELFPAY | END 2019-03-23 23:59 | disposition home or self-care (01) | LOC: CR 13:49 | PROVIDERS: PCP Family Medicine; Visit Provider Family Medicine | DX: Z51.89 Encounter for other specified aftercare (principal) | CPT/HCPCS: 83036; S9472 ==

== ENCOUNTER 2019-04-11 13:19 | Outpatient (REF) | payer MEDICARE, MEDICAID, SELFPAY ==
[2019-04-11 13:49] LABS: Bilirubin Negative (Negative); Blood Trace-lysed (Negative); Clarity Sl Cloudy (Clear); Glucose Negative (Negative); Ketones Negative (Negative); Leukocyte Esterase Small (Negative); Nitrite Negative (Negative); Specific Gravity >= 1.030 (1.005-1.025); Urobilinogen 0.2 EU/dL (Up TO 0.2); pH 5.5 (5-8)
[2019-04-11 14:04] LABS: WBC >50 HPF (0-5)
[2019-04-11 14:05] LABS: C & S Indicated? C&S Done As Ordered; Epithelial Cells Moderate HPF (Negative)
== END 2019-04-11 13:39 ==
LOC: LBN 13:19
PROVIDERS: PCP Family Medicine; Visit Provider Nurse Practitioner Gerontology
DX: N39.0 Urinary tract infection, site not specified (principal)
CPT/HCPCS: 87077; 81003; 81015; 87086; 87186

== ENCOUNTER 2019-04-18 13:08 | Outpatient (RCR) | payer SELFPAY | END 2019-04-21 23:59 | disposition home or self-care (01) | LOC: CR 13:08 | PROVIDERS: PCP Family Medicine; Visit Provider Family Medicine | DX: Z51.89 Encounter for other specified aftercare (principal) | CPT/HCPCS: S9472 ==

== ENCOUNTER 2019-04-30 13:00 | Outpatient (RCR) | payer SELFPAY | END 2019-05-22 23:59 | disposition home or self-care (01) | LOC: CR 13:00 | PROVIDERS: PCP Family Medicine; Visit Provider Family Medicine | DX: Z51.89 Encounter for other specified aftercare (principal) ==

== ENCOUNTER 2019-06-12 13:54 | Outpatient (REF) | payer MEDICARE, MEDICAID, SELFPAY | END 2019-06-12 14:14 | LOC: LBN 13:54 | PROVIDERS: PCP Family Medicine; Visit Provider Urology | DX: N39.0 Urinary tract infection, site not specified (principal) | CPT/HCPCS: 87086 ==

== ENCOUNTER → 2019-06-15 15:11 | Outpatient (BNVA) | payer MEDICARE, MEDICAID, SELFPAY | PROVIDERS: PCP Family Medicine; Referring Provider Family Medicine; Visit Provider Urology | DX: N39.0 Urinary tract infection, site not specified (principal) | CPT/HCPCS: 99213; 99443 ==

== ENCOUNTER → 2019-09-18 13:03 | Outpatient (BNVA) | payer MEDICARE, MEDICAID, SELFPAY | PROVIDERS: PCP Family Medicine; Referring Provider Family Medicine; Visit Provider Urology | DX: N39.0 Urinary tract infection, site not specified (principal) | CPT/HCPCS: 99213; 99441 ==

== ENCOUNTER 2019-12-11 13:49 | Emergency (ER) | payer MEDICARE, MEDICAID, SELFPAY ==
[2019-12-11] VITALS (12 sets, daily range): BP systolic 146–189; BP diastolic 43–95; PULSE 69–93; RESP 16–18; TEMP 36.7; O2SAT 95–99
--- NOTE | 2019-12-11 14:00 | ED.GENADUL_ITS ---
Discharge Plan Disposition Patient Disposition: HOME Condition: Stable Discharge Details Clinical Impression: Visual disturbance Primary Care Provider: Lillian Huggins ED Provider: Luann Gaspar Home Meds and New Rx's Prescriptions: Continued multivitamin [Daily Multi-Vitamin] 1 EACH tablet 1 ea PO DAILY RF: 0 metoprolol tartrate 100 MG tablet 100 mg PO BID Qty: 180 RF: 0 Eliquis 5 MG tablet 5 mg PO BID Qty: 60 RF: 3 Discharge Instructions Instructions: Ocular Migraine (ED) Additional Instructions: Please encourage water intake. Dr. Moya has recommended 400 mg of magnesium every night. This should help prevent further ocular migraines. As we discussed, your history, exam, imaging is most suggestive of ocular migraine. However, without an MRI we are unable to have a definitive diagnosis. Please continue to consider having an outpatient MRI at [facility]. Referral has been sent for neurology. Please call tomorrow to schedule follow- up appointment. Please follow-up with your primary care within the next week for reevaluation and to discuss your anxiety further. If you develop headaches, fever/chills, neck pain, rash, weakness, sensation changes or other new/worsening symptom please seek care urgently once again. Referrals: Lillian Huggins MD [Primary Care Provider] - Soniya Moya MD [ [facility] STAFF PHYSICIAN] - Medical Decision Making <VIVIENNE Berg - Last Filed: 12/11/19 15:45> 73-year-old female history of atrial fibrillation, TIA, ocular migraines, anxiety, depression hypertension, presents to the ER today for visual abnormalities. Reports that she saw flashes of light in both of her eyes along the horizontal plane in the middle of her visual field. Visual acuity both eyes, left eye, right eye ALT 20/40. She is currently asymptomatic, no focal deficits. Patient presents with a blood pressure of 182/76. She states that she did take her hypertension medication today but she is feeling slightly nervous. Differential includes but not excluded to CVA, TIA, optic migraine, intracranial process such as mass and or bleed. Question central process near the optic chiasm. I was able to review her records when she presented similarly back on 10-25-16. She was subsequently admitted for TIA, had neurology consultation, subsequently had CTA of the head and neck. I will initiate a cardiac work-up now and rather than obtaining simply just a head CT given her previous work-up and recommendations, will obtain CTA of head and neck now as well. In further evaluation of her previous records, it appears as though this has happened to her multiple times in the past. Again she is currently asymptomatic. She takes Eliquis 5 mg p.o. twice daily. Repeat blood pressure 162/58. At approximately 3 PM patient reports that she was having the lightning across her horizontal field of her vision bilaterally. She states that just prior to this happening she felt extremely anxious like she was going to have a panic attack. Was able to stop from having a panic attack but then the symptoms began again. She is otherwise neurologically intact, denies headache, numbness, tingling, weakness, blurry vision, double vision, or visual loss. The symptoms lasted approximately 10 minutes and spontaneously resolved Initial laboratory values reveal a white blood cell count of 6.58 hemoglobin 15.4 hematocrit 44.6 platelet count 197. INR 1.0 potassium 3.4 creatinine 0.66 with a GFR greater than 60. Glucose 107. Troponin less than 0.05. TSH 5.30. Patient in CT at 1520 now that laboratory values have resulted. At the time of signout patient is still in CT. Laboratory values have resulted and do not reveal any obvious emergent process. Will need to assess CT imaging, and likely discussed case with neurosurgery. Medical Records Medical records reviewed: Yes I reviewed the patient's medical records. Lab Data Lab results reviewed: Yes I reviewed the patient's lab results. Lab results narrative: Laboratory Tests Range/Units 12/11/19 12/11/19 12/11/19 14:36 14:36 14:36 WBC (4.4-10.8) 10^3/uL 6.58 RBC (3.93-5.22) 10^6/uL 4.40 Hgb (11.2-15.7) g/dL 14.5 Hct (36.0-46.0) % 44.6 MCV (80-95) fL 101.4 H MCH (27.0-33.0) pg 33.0 MCHC (32.0-36.0) % 32.5 RDW (11.7-14.6) % 13.4 Plt Count (130-400) 10^3/uL 197 MPV (8.0-11.0) fL 12.1 H Immature Gran % 0.2 Neutrophils % 62.4 Lymphocytes % 28.1 Monocytes % 7.1 Eosinophils % 1.7 Basophils % 0.5 Nucleated RBC % % 0 Absolute Neutrophils (1.2-6.7) 10^3/uL 4.11 Absolute Lymphocytes (1.2-3.4) 10^3/uL 1.85 Absolute Monocytes (0.1-0.8) 10^3/uL 0.47 Absolute Eosinophils (0.0-0.7) 10^3/uL 0.11 Absolute Basophils (0.0-0.2) 10^3/uL 0.03 PT Cancelled INR Cancelled APTT Cancelled Sodium (136-145) mmol/L 140 Potassium (3.5-5.1) mmol/L 3.4 L Chloride (98-107) mmol/L 103 Carbon Dioxide (21.0-32.0) mmol/L 28.1 Anion Gap (3-11) mmol/L 8.9 BUN (7-18) mg/dL 12 Creatinine (0.55-1.02) mg/dL 0.66 Estimated GFR/1.73 m2 (mL/min/1.73m2) >= 60.00 Glucose (74-106) mg/dL 107 H Calcium (8.5-10.1) mg/dL 9.1 Total Bilirubin (0.2-1.0) mg/dL 0.4 AST (15-37) U/L 26 ALT (14-59) U/L 27 Alkaline Phosphatase (46-116) U/L 145 H Troponin I (<0.06) ng/mL Total Protein (6.4-8.2) g/dL 7.3 Albumin (3.4-5.0) g/dL 3.6 TSH (0.36-3.74) uIU/mL Free T4 (0.76-1.46) ng/dL Range/Units 12/11/19 12/11/19 12/11/19 14:47 14:47 14:47 WBC (4.4-10.8) 10^3/uL RBC (3.93-5.22) 10^6/uL Hgb (11.2-15.7) g/dL Hct (36.0-46.0) % MCV (80-95) fL MCH (27.0-33.0) pg MCHC (32.0-36.0) % RDW (11.7-14.6) % Plt Count (130-400) 10^3/uL MPV (8.0-11.0) fL Immature Gran % Neutrophils % Lymphocytes % Monocytes % Eosinophils % Basophils % Nucleated RBC % % Absolute Neutrophils (1.2-6.7) 10^3/uL Absolute Lymphocytes (1.2-3.4) 10^3/uL Absolute Monocytes (0.1-0.8) 10^3/uL Absolute Eosinophils (0.0-0.7) 10^3/uL Absolute Basophils (0.0-0.2) 10^3/uL PT 10.1 INR 1.0 APTT 26.7 Sodium (136-145) mmol/L Potassium (3.5-5.1) mmol/L Chloride (98-107) mmol/L Carbon Dioxide (21.0-32.0) mmol/L Anion Gap (3-11) mmol/L BUN (7-18) mg/dL Creatinine (0.55-1.02) mg/dL Estimated GFR/1.73 m2 (mL/min/1.73m2) Glucose (74-106) mg/dL Calcium (8.5-10.1) mg/dL Total Bilirubin (0.2-1.0) mg/dL AST (15-37) U/L ALT (14-59) U/L Alkaline Phosphatase (46-116) U/L Troponin I (<0.06) ng/mL < 0.05 Total Protein (6.4-8.2) g/dL Albumin (3.4-5.0) g/dL TSH (0.36-3.74) uIU/mL 5.30 H Free T4 (0.76-1.46) ng/dL 1.13 ECG Data Attestation: I personally reviewed and interpreted this ECG (s) as follows: Interpretation: Please see official report by Dr. Lara. Sinus rhythm, ventricular 79, prolonged SD interval, no STEMI <VIVIENNE Boswell - Last Filed: 12/11/19 22:04> Care transition myself and Juan Rosen PA-C with imaging and consultation pending. In brief, the patient is a pleasant 73-year-old female presenting today with description of episodic visual changes. She describes to me as lightning moving across her eyes. She reports that she had does have visual abnormalities at least once per month at baseline. Has previously been diagnosed with ocular migraines. However, rather than lightning she reports that typically she sees fireworks. States that these fireworks are much more short-lived than when she experienced today. But the time she came in this evening, her symptoms had resolved. She did have one quick episode of this lightning symptom when she became anxious while here but this quickly subsided. While having the symptoms, she did not endorse any headache, nausea, vomiting, visual loss, sensory deficit, weakness. Patient has been evaluated for this historically. Was admitted with similar symptoms in 2017 at which time there was concern for potential TIA. Patient did not undergo MRI as the patient is claustrophobic and [place] phobic. Consulted with Dr. Castellano with neurology. She advised that if this is a recurrent issue, with this happening multiple times per year, it is more likely an ocular migraine. Symptoms are classic for ocular migraine and patient is at the age more common. In 2017, Dr. Castellano had evaluated the patient when she came in for this previously. Patient given diagnosis of ocular migraines 8 years ago with her typical presentation being flashes of light and a red central light. When seen in 2017, Dr. Moya had recommended oral magnesium as well as MRI which patient had declined. While we are unable to determine without an MRI for certain, she recommends at this presentation would be very unusual for this to be TIA. Advised magnesium 400mg PO QHS. She previously recommended daily aspirin the patient is now on Eliquis secondary to atrial fibrillation. Ct reviewed by radiologist: ANTERIOR CIRCULATION: Right internal carotid artery: Intracranial atherosclerosis at the right carotid siphon. No significant stenosis or occlusion. Right middle cerebral artery: No flow-limiting stenosis or occlusion. Right anterior cerebral artery: No flow-limiting stenosis or occlusion. Left internal carotid artery: Intracranial atherosclerosis at the left carotid siphon. No significant stenosis or occlusion. Left middle cerebral artery: No flow-limiting stenosis or occlusion. Left anterior cerebral artery: No flow-limiting stenosis or occlusion. POSTERIOR CIRCULATION: Right vertebral artery: No flow-limiting stenosis or occlusion. Left vertebral artery: No flow-limiting stenosis or occlusion. Basilar artery: No flow-limiting stenosis or occlusion. Right posterior cerebral artery: No flow-limiting stenosis or occlusion. Left posterior cerebral artery: No flow-limiting stenosis or occlusion. Brain: No intracranial hemorrhage or acute large territorial infarction. Mild parenchymal volume loss and chronic microangiopathy. Cerebral ventricles: No ventriculomegaly. Bones/joints: No acute fracture. Soft tissues: Stable mild right frontal scalp irregularity, nonspecific and atypical for sebaceous cyst; correlate with clinical exam findings. IMPRESSION: 1. No acute intracranial abnormality. 2. Patent major visualized intracranial vasculature. FINDINGS: Right common carotid artery: Atherosclerotic disease of the right common carotid artery. No significant stenosis or occlusion. Retropharyngeal course. Right internal carotid artery: Atherosclerotic disease with similar approximately 50% proximal right internal carotid artery stenosis by NASCET criteria from predominant soft plaque at the right carotid bifurcation. Right external carotid artery: No occlusion or stenosis of the origin. Right vertebral artery: Right dominant vertebral artery. No flow-limiting stenosis or occlusion. Left common carotid artery: Atherosclerotic disease of the left common carotid artery. No significant stenosis or occlusion. internal carotid artery stenosis by NASCET criteria from predominant soft plaque at the left common carotid bifurcation. Left external carotid artery: Mild stenosis at the origin of the left external carotid artery. Left vertebral artery: The left vertebral artery arises directly from the aortic arch. No flow-limiting stenosis or occlusion. Hypoplastic left vertebral artery, a congenital variation. Aorta: Atherosclerotic disease at the aortic arch. Coronary artery disease. Bones/joints: Degenerative changes of the cervical spine with mild anterolisthe sis at C3-C4 and C4- C5 and severe loss of disc height at C5-C6 and C6-C7. Soft tissues: No significant soft tissue swelling. Lungs: The visualized lung apex is clear. IMPRESSION: Approximately 50% proximal right and 40% proximal left internal carotid artery stenosis by NASCET criteria from predominant soft plaque. I did ask for an addendum on this to compare to previous regarding the carotid stenosis: Addendum created by Kateryna David MD on 12/11/2019 5:38:33 PM EDT: When remeasured on axial plane of imaging, there is approximately 20% proximal right and approximately 30% proximal left internal carotid artery stenosis, corresponding to measurements as follows (4.8-3.8)/4.8 on the right and (5.1-3.5)/5.1 on the left. Findings are not significantly changed from the prior study. On the original report, the reported extent of internal carotid artery stenosis is based on the sagittal images, which are suboptimal for accurate assessment of true luminal stenosis due to plane of imaging. Thus, with repeat measurement perform on axial plane of imaging, there is approximately 20% proximal right and approximately 30% proximal left internal carotid artery stenosis. Findings are consistent with prior imaging studies with no significant interval change. I discussed the findings with the patient. I also discussed my consultation with Dr. Moya. Patient continues to feel well and denying any neurological deficit at this time. Again, we discussed her history of eye symptoms. She always gestures to the right eye as the area symptoms. She continues to decline an MRI but reports I will think about it. She seems concerned with her debilitating anxiety that primarily manifest as agoraphobia. However, she is hesitant to treat this with any medications. She does report that she sees a counselor 1-2 times per week. I encouraged that she discuss this further with her primary care as she would likely greatly benefit from further treatment of this. We discussed inpatient versus outpatient management of her current symptoms. As the patient is anticoagulated, her history is most consistent with ocular migraine and she is declining to attempt MRI here, I do not feel that she would benefit from inpatient admission at this time. Patient does agree with this and feels safe to be able to go home. I did recommend the oral magnesium as was advised by Dr. Moya. Return precautions were discussed with the patient. I will refer her back to neurology. She is considering attempting the open MRI. I have also asked that she follow-up with her primary care closely. All of her questions and concerns were addressed and she is agreement this plan. HPI <VIVIENNE Berg - Last Filed: 12/11/19 15:45> General Mode of arrival: ambulatory . Date/Time Provider Initiated Documentation: 12/11/19 13:50 . Limitations to Documentation: no limitations . Information obtained by: patient . HPI Narrative: This is a 73-year-old female with history of what appears to be an ocular migraine, TIA, atrial fibrillation, on Eliquis. She has a history of anxiety, depression, ataxia, ambulates with a cane, hypertension, PSVT. She is presenting today to the ER today for evaluation of visual changes that she reports began roughly 1 hour ago. She states that they were present in both eyes but more so in the right eye. She describes quotation lightening flashes across the middle horizontal plane of her eyesight. The symptoms lasted for approximately 45 minutes and resolved on their own. She denies recent illness or trauma. She is currently asymptomatic. Denies headache, blurry or double vision, eye pain, ear pain, neck pain, chest pain, shortness of breath, abdominal pain, nausea, vomiting, incontinence, numbness, tingling, weakness, skin rash. She reports that her gait feels to be at baseline, she has not noticed any focal weaknesses or change in her speech. She had her annual eye exam less than 2 years ago and needed no changes to her eyeglass prescription. Patient reports very similar symptoms roughly 3 years ago and after having a thorough work-up states that she was not told exactly what it was. She finds this frustrating because she is concerned that this could be a TIA but if this was simply an ocular migraine she would be far less worried. Related Data Home Medications Medication Instructions Recorded Confirmed multivitamin [Daily Multi-Vitamin] 1 ea PO DAILY 11/23/16 12/11/19 Eliquis 5 mg PO BID #60 tab 12/20/16 12/11/19 metoprolol tartrate 100 mg PO BID #180 tab-cap 02/16/17 12/11/19 Previous Rx's Medication Instructions Recorded Eliquis 5 mg PO BID #60 tab 12/20/16 metoprolol tartrate 100 mg PO BID #180 tab-cap 02/16/17 Allergies Allergy/AdvReac Type Severity Reaction Status Date / Time amoxicillin [Amoxicillin] AdvReac Mild Topical Verified 12/11/19 13:59 Irritation General Stated Complaint: EyeProblem AURE: 3 Review of Systems <VIVIENNE Berg - Last Filed: 12/11/19 15:45> Constitutional Constitutional: Denies fatigue, Denies fever(s), Denies headache(s) and Denies weakness Eyes Eyes: Denies blind spots, Denies blurry vision, Denies diplopia, Denies irritation, Denies loss of peripheral vision, Reports requires corrective lenses, Reports seeing flashes, Denies photophobia and Denies spots in vision ENT Ears, Nose, Mouth, and Throat: Denies dizziness, Denies headache(s) and Denies neck pain Cardiovascular Cardiovascular: Denies chest pain and Denies dyspnea Respiratory Respiratory: Denies cough and Denies dyspnea Gastrointestinal Gastrointestinal: Denies abdominal pain, Denies nausea and Denies vomiting Genitourinary Genitourinary: Denies dysuria Musculoskeletal Musculoskeletal: Denies neck pain, Denies numbness and Denies tingling Integumentary/Breasts Skin/Breast: Denies rash Neurologic Neurologic: Denies abnormal speech, Denies dizziness, Denies headache(s), Denies numbness, Denies tingling and Denies weakness Endocrine Endocrine: Denies fatigue Hematologic/Lymphatic Hematologic/Lymphatic: Reports easy bruising PFSH <VIVIENNE Berg - Last Filed: 12/11/19 15:45> Medical History (Updated 12/11/19 @ 15:45 by VIVIENNE Berg) Anxiety and depression Ataxia Atrial fibrillation Bilateral hearing loss Bilateral tinnitus Dizziness Edema Elevated TSH HLD (hyperlipidemia) Hypertension Hypoglycemia Obesity Onychomycosis Osteopenia Prediabetes PSVT (paroxysmal supraventricular tachycardia) Recurrent UTI Visual field defect Social History Smoking/Tobacco Use Status: Former Tobacco Use Quit Date: 02/21/11 Tobacco: How many years used: 45 Alcohol Intake: never Drug use: Never Substance use type: does not use What type of physical activity do you participate in: aerobic and other Details: cardiac rehab 3x/week Duration: 30-45 minutes/day Frequency: 3-4 times per week Do you feel safe at home: Yes Do you feel safe in your relationship?: Yes Exam <VIVIENNE Berg - Last Filed: 12/11/19 15:45> Const General: cooperative, healthy appearing, comfortable and no acute distress Orientation: alert, awake and oriented x3 HENMT Head: normal to inspection, normocephalic and atraumatic Face and sinus: normal facial exam Mouth: moist mucous membranes Throat: posterior oropharynx normal Eyes General: appearance normal, both eyes and all related structures Visual [place]: normal visual gurrola by confrontation Alignment and Position: alignment normal Periorbital: periorbital findings normal Eyelids: eyelids normal Conjunctivae: conjunctivae normal Sclera: sclerae normal Cornea: corneas normal Pupils: PERRL EOM: EOM intact bilaterally Direct ophthalmoscopy: normal light reflex Neck Neck: normal visual inspection, full ROM, no lymphadenopathy, no meningeal signs, trachea midline, supple and nontender Resp Effort & Inspection: normal respiratory effort and able to speak in complete sentences Auscultation: clear to auscultation bilaterally Cardio Rate: regular rate Rhythm: regular rhythm GI Palpation: soft, not firm, no guarding, not rigid and nontender Back/Spine/Pelvis Back: No back tenderness Skin General skin exam: no rashes or lesions noted Neuro General: patient alert, patient awake, patient oriented x3, moves all extremities and no focal motor deficits Cranial Nerves: CN's II-XI intact bilaterally Cognition: normal cognition Speech: speech normal Gait: gait assisted Method: other (With a cane) Motor: muscle tone normal throughout, strength 5/5 throughout, no pronator drift, no movement abnormalities noted and no fasciculations Sensory Exam: no sensory deficits noted Coordination: [id number] test normal, [id number] test normal, Does not sway with eyes open and rapid alternating movement UE normal Extrem General: normal to inspection, full ROM, capillary refill normal and no calf tenderness Psych Appearance: grossly normal Mental Status: mental status grossly normal Course <VIVIENNE Berg - Last Filed: 12/11/19 15:45> Vital Signs Vital signs: Vital Signs Temperature 36.7 C 12/11/19 13:54 Pulse 93 H 12/11/19 13:54 Respiratory Rate 18 12/11/19 13:54 Blood Pressure 182/76 H 12/11/19 13:54 Pulse Oximetry 96 12/11/19 13:54 Temperature 36.7 C 12/11/19 13:54 Temperature Source Skin 12/11/19 13:54 Pulse 93 H 12/11/19 13:54 Respiratory Rate 18 12/11/19 13:54 Respiratory Effort Non-Labored 12/11/19 13:58 Blood Pressure 182/76 H 12/11/19 13:54 Blood Pressure Position Sitting 12/11/19 13:54 Pulse Oximetry 96 12/11/19 13:54 Oxygen Delivery Method Room Air 12/11/19 13:54 Oxygen Flow Rate 0 12/11/19 13:54 Pain Level 0 12/11/19 13:54 Sign Out <VIVIENNE Berg - Last Filed: 12/11/19 15:45> Sign Out Data: Sign Out Comment: Patient with history of ocular migraine, TIA, A. fib is anticoagulated. Visual disturbances occurred 1 hour prior to arrival and resolved on their own after 45 minutes. Initial laboratory values unremarkable. Awaiting neck and head CTA and then likely neuro consultation. Last updated by Sudheer Rosen PA at 12/11/19 15:49
--- NOTE | 2019-12-11 14:15 | DI.CT_ITS ---
EXAM: CT BRAIN NECK CTA CLINICAL HISTORY: Visual changes, history of similar, history of CVA. TECHNIQUE: Imaging Protocol: Axial CT angiography was performed with multi-slice acquisition and mu lti-planar and/or 3D reconstructions. CONTRAST MATERIAL: Intravenous: Omnipaque 350 Contrast volume:structured data in ml COMPARISON: CT CTA BRAIN AND NECK from 10/27/2016 FINDINGS: CT Head W/O: Ventricles and Extra axial spaces: Normal in size and morphology for the patient's age. Hemorrhage: None. Cerebral parenchyma: Normal. Midline shift: None. Brainstem/Cerebellum: Normal. Calvarium: Normal. Visualized Paranasal sinuses/Mastoids: Clear. Soft Tissues: Unremarkable. CTA Brain W: Internal Carotid Arteries: There is calcification bilaterally at the level of the carotid siphon but no significant stenosis or evidence of dissection or occlusion. Middle Cerebral Arteries: Right: No aneurysm, occlusion or significant stenosis. Left: No aneurysm, occlusion or significant stenosis. Anterior Cerebral Arteries: Right: No aneurysm, occlusion or significant stenosis. Left: No aneurysm, occlusion or significant stenosis. Posterior cerebral Arteries: Right: No aneurysm, occlusion or significant stenosis. Left: No aneurysm, occlusion or significant stenosis. Vertebral Arteries: Right: No aneurysm, occlusion or significant stenosis. Left: No aneurysm, occlusion or significant stenosis. Basilar Artery: No aneurysm, occlusion or significant stenosis. CTA Neck W: Common Carotid: Right: Tortuous proximally. No aneurysm, occlusion or significant stenosis. Left: Tortuous proximally. No aneurysm, occlusion or significant stenosis. External Carotid: Right: No aneurysm, occlusion or significant stenosis. Left: No aneurysm, occlusion or significant stenosis. Internal Carotid: Right: Atherosclerotic changes with mainly soft plaque proximally causing approximately [address] enosis, similar to the previous exam. No aneurysm, occlusion or dissection. Left: Mixed calcified and noncalcified plaque is again noted at the common carotid bifurcation causin g approximately 40 percent stenosis of the proximal left internal carotid artery, not visibly changed from the previous exam. No aneurysm, occlusion or dissection. Vertebral Artery: Right: Dominant. No aneurysm, occlusion or significant stenosis. Left: No aneurysm, occlusion or significant stenosis. Lung Apices: Normal. Bones: Degenerative disc changes and facet degenerative changes. Soft Tissues: Normal. IMPRESSION: 1. Normal CTA examination of the [place]. 2. Unremarkable noncontrast CT Head. 3. Stable approximately 50 percent stenosis of the proximal right internal carotid artery. Stable ap proximately 40 percent stenosis of the proximal left internal carotid artery.. RADIATION DOSE DELIVERED: 1,183.54mGy.cm Total DLP DATA REPOSITORY: All CT scans at this facility are submitted to the National Radiology Data Registry (NRDR) Dose Index Registry (DIR) with the [employer] (A[employer]). RADIATION OPTIMIZATION: All CT scans at this facility use at least one of these dose optimization te chniques: automated exposure control; mA and/or kV adjustment per patient size (includes targeted exa ms where dose is matched to clinical indication); or iterative reconstruction.
--- NOTE | 2019-12-11 14:15 | RT.EKG_ITS ---
APPROVED REPORT Exam: Resting ECG Patient Location: E HR:79 bpm ECG Measurements Heart Rate [address] 253 P 61 QRSd 91 QRS 1 QT 386 T 68 QTc 442 Conclusion Sinus rhythm...normal P axis, V-rate 60- [address] interval...CT >220, V-rate 50- 90
[2019-12-11 14:44] LABS: Abs Immature Grans 0.01 10^3/uL (0.0-0.06); Absolute Basophil Count 0.03 10^3/uL (0.0-0.2); Absolute Eosinophil Count 0.11 10^3/uL (0.0-0.7); Absolute Lymphocyte Count 1.85 10^3/uL (1.2-3.4); Absolute Monocyte Count 0.47 10^3/uL (0.1-0.8); Absolute Neutrophil Count 4.11 10^3/uL (1.2-6.7); Basophils % 0.5; Eosinophils % 1.7; HCT 44.6 % (36.0-46.0); HGB 14.5 g/dL (11.2-15.7); Immature Grans % 0.2; Lymphocytes % 28.1; MCHC 32.5 % (32.0-36.0); MCV 101.4 fL (80-95); MPV 12.1 fL (8.0-11.0); Monocytes % 7.1; Neutrophils % 62.4; Nucleated RBC 0 %; Platelet Count 197 10^3/uL (130-400); RDW 13.4 % (11.7-14.6); RDW-SD 50.7 fL; WBC 6.58 10^3/uL (4.4-10.8)
[2019-12-11 14:57] LABS: ALT 27 U/L (14-59); AST 26 U/L (15-37); Albumin 3.6 g/dL (3.4-5.0); Alkaline Phosphatase 145 U/L (46-116); Anion Gap 8.9 mmol/L (3-11); BUN 12 mg/dL (7-18); Bilirubin, Total 0.4 mg/dL (0.2-1.0); CO2 28.1 mmol/L (21.0-32.0); CREATININE 0.66 mg/dL (0.55-1.02); Calcium 9.1 mg/dL (8.5-10.1); Chloride 103 mmol/L (98-107); Glucose 107 mg/dL (74-106); Potassium 3.4 mmol/L (3.5-5.1); Sodium 140 mmol/L (136-145); Total Protein 7.3 g/dL (6.4-8.2)
[2019-12-11 15:08] LABS: PTT Activated 26.7 sec (21.0-31.4); Prothrombin Time 10.1 sec (9.3-11.0)
[2019-12-11 15:10] LABS: Troponin I < 0.05 ng/mL (<0.06)
[2019-12-11 15:31] LABS: FREE T4 1.13 ng/dL (0.76-1.46)
--- NOTE | 2019-12-11 17:03 | DI.VRAD_ITS ---
Addendum created by Kateryna David MD on 12/11/2019 5:38:33 PM EDT: When remeasured on axial plane of imaging, there is approximately 20% proximal right and approximately 30% proximal left internal carotid artery stenosis, corresponding to measurements as follows (4.8-3.8)/4.8 on the right and (5.1-3.5)/5.1 on the left. Findings are not significantly changed from the prior study. On the original report, the reported extent of internal carotid artery stenosis is based on the sagittal images, which are suboptimal for accurate assessment of true luminal stenosis due to plane of imaging. Thus, with repeat measurement perform on axial plane of imaging, there is approximately 20% proximal right and approximately 30% proximal left internal carotid artery stenosis. Findings are consistent with prior imaging studies with no significant interval change. Initial report created on 12/11/2019 5:03:10 PM EDT: PROCEDURE INFORMATION: Exam: CT Angiography Head With Contrast Exam date and time: 12/11/2019 3:58 PM Age: 73 years old Clinical indication: Other: Visual changes, HX of similar, HX of CVA TECHNIQUE: Imaging protocol: Computed tomography angiography of the head with intravenous contrast. 3D rendering (Not supervised by radiologist): MIP and/or 3D reconstructed images were created by the technologist. Contrast material: OMNIPAQUE 350; Contrast volume: 85 ml; Contrast route: INTRAVENOUS (IV); COMPARISON: CTA BRAIN AND NECK 10/27/2016 9:48 AM FINDINGS: ANTERIOR CIRCULATION: Right internal carotid artery: Intracranial atherosclerosis at the right carotid siphon. No significant stenosis or occlusion. Right middle cerebral artery: No flow-limiting stenosis or occlusion. Right anterior cerebral artery: No flow-limiting stenosis or occlusion. Left internal carotid artery: Intracranial atherosclerosis at the left carotid siphon. No significant stenosis or occlusion. Left middle cerebral artery: No flow-limiting stenosis or occlusion. Left anterior cerebral artery: No flow-limiting stenosis or occlusion. POSTERIOR CIRCULATION: Right vertebral artery: No flow-limiting stenosis or occlusion. Left vertebral artery: No flow-limiting stenosis or occlusion. Basilar artery: No flow-limiting stenosis or occlusion. Right posterior cerebral artery: No flow-limiting stenosis or occlusion. Left posterior cerebral artery: No flow-limiting stenosis or occlusion. Brain: No intracranial hemorrhage or acute large territorial infarction. Mild parenchymal volume loss and chronic microangiopathy. Cerebral ventricles: No ventriculomegaly. Bones/joints: No acute fracture. Soft tissues: Stable mild right frontal scalp irregularity, nonspecific and atypical for sebaceous cyst; correlate with clinical exam findings. IMPRESSION: 1. No acute intracranial abnormality. 2. Patent major visualized intracranial vasculature. PROCEDURE INFORMATION: Exam: CT Angiography Neck With Contrast Exam date and time: 12/11/2019 3:58 PM Age: 73 years old Clinical indication: Other: Visual changes, HX of similar, HX of CVA TECHNIQUE: Imaging protocol: Computed tomography angiography of the neck with intravenous contrast. 3D rendering (Not supervised by radiologist): MIP and/or 3D reconstructed images were created by the technologist. Contrast material: OMNIPAQUE 350; Contrast volume: 85 ml; Contrast route: INTRAVENOUS (IV); COMPARISON: CTA BRAIN AND NECK 10/27/2016 9:48 AM FINDINGS: Right common carotid artery: Atherosclerotic disease of the right common carotid artery. No significant stenosis or occlusion. Retropharyngeal course. Right internal carotid artery: Atherosclerotic disease with similar approximately 50% proximal right internal carotid artery stenosis by NASCET criteria from predominant soft plaque at the right carotid bifurcation. Right external carotid artery: No occlusion or stenosis of the origin. Right vertebral artery: Right dominant vertebral artery. No flow-limiting stenosis or occlusion. Left common carotid artery: Atherosclerotic disease of the left common carotid artery. No significant stenosis or occlusion. Left internal carotid artery: Atherosclerotic disease with similar approximately 40% proximal left internal carotid artery stenosis by NASCET criteria from predominant soft plaque at the left common carotid bifurcation. Left external carotid artery: Mild stenosis at the origin of the left external carotid artery. Left vertebral artery: The left vertebral artery arises directly from the aortic arch. No flow-limiting stenosis or occlusion. Hypoplastic left vertebral artery, a congenital variation. Aorta: Atherosclerotic disease at the aortic arch. Coronary artery disease. Bones/joints: Degenerative changes of the cervical spine with mild anterolisthesis at C3-C4 and C4-C5 and severe loss of disc height at C5-C6 and C6-C7. Soft tissues: No significant soft tissue swelling. Lungs: The visualized lung apex is clear. IMPRESSION: Approximately 50% proximal right and 40% proximal left internal carotid artery stenosis by NASCET criteria from predominant soft plaque. REFERENCES: NASCET CRITERIA. The degree of internal carotid artery stenosis is based on NASCET criteria. Normal is no stenosis. Mild is less than 50% stenosis. Moderate is 50-69% stenosis. Severe is 70% to 99% stenosis. Total occlusion is no detectable patent lumen. Dictated and Authenticated by: Kateryna David MD. Ordering:CHRISTOPHER Willard MD
--- NOTE | 2019-12-11 18:30 | NUR.NOTE ---
Referral to Neurology, Dr. Benitez Note:
== END 2019-12-11 18:36 | disposition home or self-care (01) ==
PROVIDERS: Physician Assistant; Emergency Provider Physician Assistant; PCP Family Medicine
DX: H53.453 Other localized visual field defect, bilateral (principal); G43.B0 Ophthalmoplegic migraine, not intractable; I10 Essential (primary) hypertension
CPT/HCPCS: 36415; 70496; 70498; 80053; 93005; 99285; 84439; 84443; 84484; 85025; 85610; 85730; 93010

== ENCOUNTER → 2019-12-18 15:27 | Outpatient (BNVA) | payer MEDICARE, MEDICAID, SELFPAY | PROVIDERS: PCP Family Medicine; Referring Provider Family Medicine; Visit Provider Urology | DX: Z87.440 Personal history of urinary (tract) infections; I10 Essential (primary) hypertension | CPT/HCPCS: 99213; 99442 ==

== ENCOUNTER → 2020-03-18 11:42 | Outpatient (BNVA) | payer MEDICARE, MEDICAID, SELFPAY | PROVIDERS: PCP Family Medicine; Referring Provider Family Medicine; Visit Provider Urology | DX: N39.0 Urinary tract infection, site not specified (principal) | CPT/HCPCS: 99213; 99443 ==

== ENCOUNTER 2020-05-17 23:58 | Observation (INO) | payer MEDICARE, MEDICAID, SELFPAY ==
--- NOTE | 2020-05-17 23:45 | RT.EKG_ITS ---
APPROVED REPORT Exam: Resting ECG Patient Location: E HR:113 bpm ECG Measurements Heart Rate 113 AXIS [place] [id number] P [id number] QRSd 82 QRS 4 QT 337 T 152 QTc 463 Conclusion Atrial fibrillation...? atrial activity Repol abnrm suggests ischemia, anterolateral...ST dep, T neg, I aVL V2-V6 Physician: Rate 113, atrial fibrillation, no significant ST elevation, minimal less than a millimeter ST depression in V3 V4 and V5. This appears to be slightly new, no evidence of STEMI or reciprocal elevation. Minimal elevation in aVR less than a millimeter.
[2020-05-17 23:57] VITALS: PULSE 140; RESP 18; TEMP 36.7; O2SAT 96
[2020-05-17 23:59] VITALS: PULSE 140; RESP 28
[2020-05-18] VITALS (33 sets, daily range): BP systolic 125–152; BP diastolic 76–84; PULSE 62–186; RESP 10–24; TEMP 35.8–36.9; O2SAT 93–100
--- NOTE | 2020-05-18 | DI.RAD_ITS ---
EXAM: XR PORTABLE CHEST AP CLINICAL HISTORY: afib, rvr, palpitations, eval for infiltrate. TECHNIQUE: 2D digital imaging was performed. COMPARISON: CR CHEST 2 VIEWS PA,LAT from 10/25/2016 FINDINGS: Heart size is upper normal. The mediastinum is not widened. Lungs are clear. No infiltrates nor obvious pleural effusions. Slight elevation left hemidiaphragm. IMPRESSION: No acute pulmonary findings on this single AP portable view of the chest.No abnormal widening of the mediastinum (as per request). DATA REPOSITORY: RADIATION DOSE DELIVERED: All CT scans at this facility use at least one of these dose optimization techniques: automated exposure control; mA and/or kV adjustment per patient size (includes targeted e xams where dose is matched to clinical indication); or iterative reconstruction.
[2020-05-18] MEDS: Normal Saline 1,000 ML 1000 ML IV (00:14)
[2020-05-18 00:22] LABS: Abs Immature Grans 0.02 10^3/uL (0.0-0.06); Absolute Basophil Count 0.03 10^3/uL (0.0-0.2); Absolute Eosinophil Count 0.11 10^3/uL (0.0-0.7); Absolute Lymphocyte Count 4.74 10^3/uL (1.2-3.4); Absolute Monocyte Count 0.85 10^3/uL (0.1-0.8); Absolute Neutrophil Count 4.14 10^3/uL (1.2-6.7); Basophils % 0.3; Eosinophils % 1.1; HCT 46.5 % (36.0-46.0); HGB 15.1 g/dL (11.2-15.7); Immature Grans % 0.2; Lymphocytes % 47.9; MCH 32.9 pg (27.0-33.0); MCHC 32.5 % (32.0-36.0); MCV 101.3 fL (80-95); MPV 12.5 fL (8.0-11.0); Monocytes % 8.6; Neutrophils % 41.9; Nucleated RBC 0 %; Platelet Count 219 10^3/uL (130-400); RBC 4.59 10^6/uL (3.93-5.22); RDW 13.2 % (11.7-14.6); RDW-SD 49.8 fL; WBC 9.89 10^3/uL (4.4-10.8)
[2020-05-18 00:32] LABS: PTT Activated 26.4 sec (21.0-27.5); Prothrombin Time 9.9 sec (9.3-11.0)
[2020-05-18 00:40] LABS: ALT 31 U/L (14-59); AST 25 U/L (15-37); Albumin 3.7 g/dL (3.4-5.0); Alkaline Phosphatase 149 U/L (46-116); Anion Gap 14.1 mmol/L (3-11); BUN 15 mg/dL (7-18); Bilirubin, Total 0.4 mg/dL (0.2-1.0); CO2 23.9 mmol/L (21.0-32.0); CREATININE 0.8 mg/dL (0.55-1.02); Calcium 9.5 mg/dL (8.5-10.1); Chloride 103 mmol/L (98-107); Glucose 124 mg/dL (74-106); NT-proBNP 484 pg/mL (<300); Potassium 3.1 mmol/L (3.5-5.1); Sodium 141 mmol/L (136-145); TSH (W/Ref FT4) 9.16 uIU/mL (0.36-3.74); Total Protein 7.6 g/dL (6.4-8.2)
[2020-05-18 00:41] LABS: Troponin I < 0.05 ng/mL (<0.06)
--- NOTE | 2020-05-18 00:41 | ED.GENADUL_ITS ---
Discharge Plan Disposition Patient Disposition: [facility] INPATIENT Condition: Stable Discharge Details Clinical Impression: Atrial fibrillation with RVR, Elevated troponin Primary Care Provider: Lillian Huggins ED Provider: Terrence Cote Home Meds and New Rx's Prescriptions: No Action multivitamin [Daily Multi-Vitamin] 1 EACH tablet 1 ea PO DAILY RF: 0 metoprolol tartrate 100 MG tablet 100 mg PO BID Qty: 180 RF: 0 Eliquis 5 MG tablet 5 mg PO BID Qty: 60 RF: 3 Medical Decision Making 74-year-old female with a past medical history of paroxysmal atrial fibrillation and SVT who is on Eliquis, metoprolol presents today for evaluation of palpitations and A. fib with RVR. The patient states that she was at home 1 hour prior to arrival and developed some palpitations. She took her Lopressor/metoprolol at that time, 100 mg, and when EMS arrived she was noted to have a heart rate in the 190s to 200. They gave 20 mg of IV Cardizem, and this notably lowered her heart rate on their transition to the ED. Patient denies any chest pain, chest heaviness or chest tightness. She denies any shortness of breath. Denies PE risk factors such as recent long car rides, immobilization, recent surgery, prior history of DVT or PE, family history of PE or DVT, morbid obesity, exogenous estrogen and smoking, hemoptysis, history of cancer. She does admit to eating and drinking notably less than normal today, and did feel little lightheaded earlier today. This would be an atypical dietary pattern for her. She otherwise has not missed any of her medications. No other complaints at this time. Physical exam shows dry mucous membranes, otherwise no significant abnormalities. Upon the patient's arrival heart rate was already down to the 110's. Blood pressure stable, patient felt well. See no indication for readministration of Cardizem or metoprolol at this time. Symptoms are likely brought on by the patient's decreased oral intake today. Symptoms appearing consistent with pulmonary embolism especially with her use of her Eliquis. Will evaluate for electrolyte abnormality, gently rehydrate, monitor closely and reassess. 1:20 AM Patient's heart rate is in the 70s to 80s, she remains notably stable. Blood pressure good. We are rehydrating, potassium slightly low at 3.1. proBNP slightly elevated at 44 but not indicative of overt heart failure. Initial troponin negative. TSH is notably high at 9.16 however her free T4 is otherwise normal at 1.29. The patient remained stable and if second troponin is unremarkable I do feel that the patient would be a good candidate for discharge. 3:30 AM Patient remained stable, heart rate remains in the 80s without any additional intervention. Potassium has been repleted. Repeat troponin has returned 0.08. Patient remains chest pain-free. I suspect this is just secondary to mild demand ischemia from being in A. fib with RVR for an hour prior to arrival. Patient remains hemodynamically stable. Repeat EKG shows no evidence of STEMI. I did discuss with the patient discharge versus admission/observation, and currently the patient does state that she lives alone and is concerned with what has happened tonight does not feel comfortable going home especially in conjunction with the elevated troponin. We will contact the hospitalist for admission for serial troponins and reassessment. 4:15 AM Discussed the case with Dr. Walters, she agrees with the assessment and plan. I will place bridging orders on her behalf. The patient had her metoprolol and Eliquis last night prior to coming here. No need for repeat dose at this time. I have extensively reviewed the treatment plan with the patient. I have a ddressed all patient concerns at this time. I have also discussed the plan with the admitting physician and they agree with the current assessment and plan and have agreed to assume responsibility for the patient. All parties demonstrate verbal understanding and agreement with our assessment and plan at this time. The documentation in this chart was dictated using [employer] dictation software. Please excuse any dictation errors. EKG 00: 04 Rate 113, atrial fibrillation, no significant ST elevation, minimal less than a millimeter ST depression in V3 V4 and V5. This appears to be slightly new, no evidence of STEMI or reciprocal elevation. Minimal elevation in aVR less than a millimeter. EKG 3: 35 Rate 82, sinus rhythm, no significant ST elevations or depressions, previous mild depressions in anterior lateral leads have completely resolved. No evidence of STEMI. FINDINGS: Lungs: Unremarkable. No consolidation. Pleural spaces: Unremarkable. No pleural effusion. No pneumothorax. Heart/Mediastinum: Unremarkable. No cardiomegaly. Bones/joints: Unremarkable. IMPRESSION: No acute findings. Thank you for allowing us to participate in the care of your patient. Dictated and Authenticated by: Warren Taylor MD 05/18/2020 12:53 AM Eastern Time ([place] & [place]) HPI General Date/Time Provider Initiated Documentation: 05/18/20 00:41 . HPI Narrative: 74-year-old female with a past medical history of paroxysmal atrial fibrillation and SVT who is on Eliquis, metoprolol presents today for evaluation of palpitations and A. fib with RVR. The patient states that she was at home 1 hour prior to arrival and developed some palpitations. She took her Lopressor/metoprolol at that time, 100 mg, and when EMS arrived she was noted to have a heart rate in the 190s to 200. They gave 20 mg of IV Cardizem, and this notably lowered her heart rate on their transition to the ED. Patient denies any chest pain, chest heaviness or chest tightness. She denies any shortness of breath. Denies PE risk factors such as recent long car rides, immobilization, recent surgery, prior history of DVT or PE, family history of PE or DVT, morbid obesity, exogenous estrogen and smoking, hemoptysis, history of cancer. She does admit to eating and drinking notably less than normal today, and did feel little lightheaded earlier today. This would be an atypical dietary pattern for her. She otherwise has not missed any of her medications. No other complaints at this time. Related Data Home Medications Medication Instructions Recorded Confirmed multivitamin [Daily Multi-Vitamin] 1 ea PO DAILY 11/23/16 05/18/20 Eliquis 5 mg PO BID #60 tab 12/20/16 05/18/20 metoprolol tartrate 100 mg PO BID #180 tab-cap 02/16/17 05/18/20 Previous Rx's Medication Instructions Recorded Eliquis 5 mg PO BID #60 tab 12/20/16 metoprolol tartrate 100 mg PO BID #180 tab-cap 02/16/17 Allergies Allergy/AdvReac Type Severity Reaction Status Date / Time amoxicillin [Amoxicillin] AdvReac Mild Topical Verified 05/18/20 00:06 Irritation General Stated Complaint: Palpitatns AURE: 2 Review of Systems All systems reviewed & are unremarkable except as noted in HPI and below [facility] Medical History (Updated 05/18/20 @ 04:17 by Terrence Cote DO) Anxiety and depression Ataxia Atrial fibrillation Bilateral hearing loss Bilateral tinnitus Dizziness Edema Elevated TSH HLD (hyperlipidemia) Hypertension Hypoglycemia Obesity Onychomycosis Osteopenia Prediabetes PSVT (paroxysmal supraventricular tachycardia) Recurrent UTI Visual field defect Social History Smoking/Tobacco Use Status: Former Tobacco Use Quit Date: 02/21/11 Tobacco: How many years used: 45 Smoking risk assessment performed?: Yes Alcohol Intake: never Drug use: Never Substance use type: does not use What type of physical activity do you participate in: aerobic and other Details: cardiac rehab 3x/week Duration: 30-45 minutes/day Frequency: 3-4 times per week Do you feel safe at home: Yes Do you feel safe in your relationship?: Yes Exam Narrative Exam Narrative: 1.Const: Well-nourished, Well-developed, appearing stated age 2.Eyes: PERRL, no conjunctival injection, and symmetrical lids. 3.ENT: Atraumatic external nose and ears. Notably dry MM. Neck: Symmetric, trachea midline, No thyromegaly. 4.CVS: +S1/S2, No murmurs or gallops. Peripheral pulses 2+ and equal in all ex tremities. Brisk capillary refill in all extremities. 5.RESP: Unlabored respiratory effort. Clear to auscultation bilaterally. No wheezes rales or rhonchi 6.GI: Soft, Nontender/Nondistended, No hepatosplenomegaly. No guarding or rebound. 7.MSK: Normocephalic/Atraumatic, Extremities w/o deformity or ttp No cyanosis or clubbing, Normal movement of all extremities. No calf tenderness, or pitting edema. 8.Skin: Warm, Dry. No rashes or lesions. 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 Sensation grossly intact, no focal neurologic deficits. 10.Psych: (AAO) x3. Appropriate mood and affect Course Vital Signs Vital signs: Vital Signs Temperature 36.7 C 05/17/20 23:57 Pulse 140 H 05/17/20 23:57 Respiratory Rate 18 05/17/20 23:57 Pulse Oximetry 96 05/17/20 23:57 Temperature 36.7 C 05/17/20 23:57 Pulse 140 H 03/27/21 23:57 Respiratory Rate 18 05/17/20 23:57 Respiratory Effort Non-Labored 05/18/20 00:07 Pulse Oximetry 96 05/17/20 23:57 Pain Level 0 05/18/20 00:15 Lab/Test Results Lab/Test Results: Laboratory Tests Range/Units 05/18/20 05/18/20 00:00 00:00 WBC (4.4-10.8) 10^3/uL 9.89 RBC (3.93-5.22) 10^6/uL 4.59 Hgb (11.2-15.7) g/dL 15.1 Hct (36.0-46.0) % 46.5 H MCV (80-95) fL 101.3 H MCH (27.0-33.0) pg 32.9 MCHC (32.0-36.0) % 32.5 RDW (11.7-14.6) % 13.2 Plt Count (130-400) 10^3/uL 219 MPV (8.0-11.0) fL 12.5 H Immature Gran % 0.2 Neutrophils % 41.9 Lymphocytes % 47.9 Monocytes % 8.6 Eosinophils % 1.1 Basophils % 0.3 Nucleated RBC % % 0 Absolute Neutrophils (1.2-6.7) 10^3/uL 4.14 Absolute Lymphocytes (1.2-3.4) 10^3/uL 4.74 H Absolute Monocytes (0.1-0.8) 10^3/uL 0.85 H Absolute Eosinophils (0.0-0.7) 10^3/uL 0.11 Absolute Basophils (0.0-0.2) 10^3/uL 0.03 PT (9.3-11.0) sec 9.9 INR (0.9-1.1) 1.0 APTT (21.0-27.5) sec 26.4
--- NOTE | 2020-05-18 00:54 | DI.VRAD_ITS ---
PROCEDURE INFORMATION: Exam: XR Chest Exam date and time: 05/18/2020 12:05 AM Age: 74 years old Clinical indication: Patient HX: Afib, rvr, palpitations; Additional info: Eval for infiltrate TECHNIQUE: Imaging protocol: XR of the chest Views: 1 view. COMPARISON: CR CHEST 2 VIEWS PA,LAT 10/25/2016 11:52 AM FINDINGS: Lungs: Unremarkable. No consolidation. Pleural spaces: Unremarkable. No pleural effusion. No pneumothorax. Heart/Mediastinum: Unremarkable. No cardiomegaly. Bones/joints: Unremarkable. IMPRESSION: No acute findings. Dictated and Authenticated by: Warren Taylor MD. Ordering:ULISES Ocampo MD
[2020-05-18 00:57] LABS: FREE T4 1.29 ng/dL (0.76-1.46)
[2020-05-18] MEDS: POTASSIUM CHLORIDE 20 MEQ/100 ML BAG 50 MEQ IVPB (01:24)
[2020-05-18] MEDS: Potassium Chloride Liquid 20 MEQ PKT ×2 (01:38→01:40)
[2020-05-18 03:14] LABS: Troponin I 0.08 ng/mL (<0.06)
--- NOTE | 2020-05-18 03:15 | RT.EKG_ITS ---
APPROVED REPORT Exam: Resting ECG Patient Location: E HR:82 bpm ECG Measurements Heart Rate 82 AXIS [place] 259 P 37 QRSd 89 QRS -2 QT 369 T 34 QTc 431 Conclusion Sinus rhythm...normal P axis, V-rate 60- 99 Prolonged OK interval...OK >220, V-rate 50- 90 Low voltage, precordial leads...precordial leads <1.0mV Physician: Rate 82, sinus rhythm, no significant ST elevations or depressions, previous mild depressi ons in anterior lateral leads have completely resolved. No evidence of STEMI.
[2020-05-18 03:53] LABS: Source Nasal/Nares
--- NOTE | 2020-05-18 04:18 | NUR.NOTE ---
Nursing Note: Patient requesting to go to the bathroom, refusing bedside commode. Patient then asking to hold onto someone to ambulate. Patient was given a walker to use. Ambulates without any difficulty, no weakness, gait steady. Waiting for room assignment.
[2020-05-18 04:21] LABS: Bilirubin Negative (Negative); Blood Negative (Negative); Clarity Clear (Clear); Glucose Negative (Negative); Ketones Negative (Negative); Leukocyte Esterase Negative (Negative); Nitrite Negative (Negative); Urobilinogen 0.2 EU/dL (Up TO 0.2)
--- NOTE | 2020-05-18 06:20 | HPE_ITS ---
Date of service: 05/18/20 Time of Service: 07:30 Assessment and Plan Assessment and plan (1) Paroxysmal atrial fibrillation with RVR: Status: Acute Assessment and plan: Converted to NSR. COntinue metoprolol 100 mg BID and eliquis. I suspect that dehydration/inconsistent PO intake/anxiety could be triggers, but seeing EKG changes with rapid rate and slightly elevated troponin are an indication for a stress test as well. The patient is hesitant to get this. We will continue to trend troponin and mon itor her on tele. Echo ordered. Monitor and replete lytes. IVF. (2) SVT (supraventricular tachycardia): Status: Chronic Assessment and plan: As above. The patient would benefit from holter monitor/extended cardiac monitoring on discharge. (3) Prediabetes: Status: Chronic Assessment and plan: Check A1C. Should the patient still be in the hospital tomorrow, diabetes education consult was ordered. (4) Hypoglycemia: Status: Suspected Assessment and plan: The patient describes a feeling of low blood sugar at home after not eating for a large portion of the day. We discussed the importance of having a balanced and regular diet and the fact that protein and fiber are going to help the blood sugar stay even. Diabetes education consult ordered - could also be done as outpatient. (5) Dehydration: Status: Acute Assessment and plan: IVF. (6) Subclinical hypothyroidism: Status: Acute Assessment and plan: PCP to consider starting synthroid if stress test negative. (7) Discharge planning issues: Status: Acute Assessment and plan: Full code. Obs History of Present Illness History of Present Illness Chief Complaint: Palpitations, lightheadedness Narrative: Ms Gupta is a 74 year old female with PMHx of PSVT/Afib, on metoprolol and eliquis, as well as h/o prediabetes, subclinical hypothyroidism, anxiety d/o, obesity with BMI of 38.4, who was brought to [facility] ED by ambulance after a sudden onset of palpitations/fast irregular rhythm and lightheadedness at home circa 11 pm. The patient took her evening dose of metoprolol, but the heart did not slow down from 190s-200s (SVT) until she received 20 mg of IV diltiazem by EMS. By the time she arrived to the ED, she was relatively rate controlled and asymptomatic. The patient never had chest pain, nausea, shortness of breath, and never felt like she might faint with the episode. She denies caffeine or alcohol intake, and admits only to a small amount of chocolate. She admits to not eating or drinking water for a prolonged period of time yesterday because of something else going on. There is a lot of stress in her life (financial, life changes, she does not elabotrate more than that). She does state that she has been relatively deconditioned since she stopped attending cardiac rehab since the COVID pandemic started in 2019.The rapid heart rate last happened about 1 year ago, but Afib recurs more frequently than that. The patient is no longer following with Dr Vale. In the ED, her initial troponin was negative, but repeat was 0.08. This is now up to 0.10. The patient has never had a stress test and is hesitating to have one on this addmission. It has been several years since she has had an echocardiogram. 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) Onychomycosis Osteopenia Prediabetes PSVT (paroxysmal supraventricular tachycardia) Recurrent UTI Sensorineural hearing loss, bilateral (11/27/15) Transient cerebral ischemia (11/23/16) Visual field defect Surgical History (Updated 05/18/20 @ 08:38 by Jie Walters MD) No pertinent past surgical history Family History (Updated 05/18/20 @ 08:39 by Jie Walters MD) Father Heart disease Mother Hypertension Cancer cholangiocarcinoma Paternal Grandmother Cancer uterine ca Social History (Updated 05/18/20 @ 08:40 by Jie Walters MD) Smoking/Tobacco Use Status: Former Tobacco Use Quit Date: 02/21/11 Tobacco: How many years used: 45 Smoking risk assessment performed?: Yes Alcohol Intake: never Drug use: Never Substance use type: does not use What type of physical activity do you participate in: sedentary lifestyle Do you feel safe at home: Yes Do you feel safe in your relationship?: Yes Meds Home Medications and Allergies Allergies Allergy/AdvReac Type Severity Reaction Status Date / Time amoxicillin [Amoxicillin] AdvReac Mild Topical Verified 05/18/20 00:06 Irritation Home Medications Medication Instructions Recorded Confirmed Type multivitamin [Daily Multi-Vitamin] 1 ea PO DAILY 11/23/16 05/18/20 History Eliquis 5 mg PO BID #60 tab 12/20/16 05/18/20 Rx metoprolol tartrate 100 mg PO BID #180 tab-cap 02/16/17 05/18/20 Rx Exam Narrative Exam Narrative: General: Very pleasant mildly anxious elderly female, A&Ox3, sitting up comfortably in bed Neurological: A&Ox3, no focal deficits Psychiatric: mildly anxious, appropriate speech pattern/content Skin: Visible skin intact HEENT: Atraumatic, normocephalic, EOMI, dry MM, clear oropharynx, no submand ibular or cervical lymphadenopathy, +mild goiter, no JVD Cardiovascular: RRR, no m/r/g Lungs: CTAB Gastrointestinal: soft, nontender, nondistended Genitourinary: deferred Extremities: +1 BLE edema - chronic, symmetric - no c/c; +1 pedal pulses B Results Imaging Additional studies: CXR: No acute findings. EKG #1: Afib, HR 113, inferolateral ST-T changes. EKG #2: NSR, HR 82, 1st degree AV block, ST-T changes resolved. EKG #3: NSR, 1st degree AV block, HR 70, no acute ischemia, inferolateral ST-T changes resolved Labs Result diagrams: 05/18/20 00:00 05/18/20 00:00 Labs: Laboratory Results - last 24 hr 05/18/20 05/18/20 05/18/20 00:00 00:00 00:00 WBC 9.89 RBC 4.59 Hgb 15.1 Hct 46.5 H MCV 101.3 H MCH 32.9 MCHC 32.5 RDW 13.2 Plt Count 219 MPV 12.5 H Immature Gran % 0.2 Neutrophils % 41.9 Lymphocytes % 47.9 Monocytes % 8.6 Eosinophils % 1.1 Basophils % 0.3 Nucleated RBC % 0 Absolute Neutrophils 4.14 Absolute Lymphocytes 4.74 H Absolute Monocytes 0.85 H Absolute Eosinophils 0.11 Absolute Basophils 0.03 PT 9.9 INR 1.0 APTT 26.4 Sodium 141 Potassium 3.1 L Chloride 103 Carbon Dioxide 23.9 Anion Gap 14.1 H BUN 15 Creatinine 0.8 Estimated GFR/1.73 m2 >= 60.00 Glucose 124 H Calcium 9.5 Total Bilirubin 0.4 AST 25 ALT 31 Alkaline Phosphatase 149 H Troponin I < 0.05 NT-Pro-B Natriuret Pep 484 H Total Protein 7.6 Albumin 3.7 TSH 9.16 H Free T4 1.29 Urine Color Urine Clarity Urine pH Ur Specific [place] Urine Protein Urine Ketones Urine Blood Urine Nitrite Urine Bilirubin Urine Urobilinogen Ur Leukocyte Esterase Urine Glucose COVID-19 Source 05/18/20 05/18/20 05/18/20 02:50 03:45 04:10 WBC RBC Hgb Hct MCV MCH MCHC RDW Plt Count MPV Immature Gran % Neutrophils % Lymphocytes % Monocytes % Eosinophils % Basophils % Nucleated RBC % Absolute Neutrophils Absolute Lymphocytes Absolute Monocytes Absolute Eosinophils Absolute Basophils PT INR APTT Sodium Potassium Chloride Carbon Dioxide Anion Gap BUN Creatinine Estimated GFR/1.73 m2 Glucose Calcium Total Bilirubin AST ALT Alkaline Phosphatase Troponin I 0.08 H* NT-Pro-B Natriuret Pep Total Protein Albumin TSH Free T4 Urine Color Yellow Urine Clarity Clear Urine pH 7.0 Ur Specific [place] 1.020 Urine Protein Negative Urine Ketones Negative Urine Blood Negative Urine Nitrite Negative Urine Bilirubin Negative Urine Urobilinogen 0.2 Ur Leukocyte Esterase Negative Urine Glucose Negative COVID-19 Source Nasal/nares Last Vital Signs Temp 36.9 C 05/18/20 04:39 Pulse 87 05/18/20 05:21 Resp 16 05/18/20 04:39 BP 148/84 H 05/18/20 04:39 Pulse Ox 97 05/18/20 04:39 COVID-19 Screening Have you, or household traveled for leisure in last 14 days?: No Had IN PERSON contact w/suspected or confirmed C-19 person: No
--- NOTE | 2020-05-18 08:00 | RT.EKG_ITS ---
APPROVED REPORT Exam: Resting ECG Patient Location: I HR:70 bpm ECG Measurements Heart Rate 70 AXIS MA 258 P 49 QRSd 87 QRS 2 QT 387 T 37 QTc 419 Conclusion Sinus rhythm...normal P axis, V-rate 60- 99 Prolonged MA interval...MA >220, V-rate 50- 90 Low voltage, precordial leads...precordial leads <1.0mV
[2020-05-18] MEDS: Metoprolol 50 MG TAB 100 MG PO (08:25)
[2020-05-18] MEDS: Apixaban 5 MG TAB PO (08:25)
[2020-05-18 08:26] LABS: Anion Gap 8.7 mmol/L (3-11); BUN 11 mg/dL (7-18); CO2 26.3 mmol/L (21.0-32.0); CREATININE 0.6 mg/dL (0.55-1.02); Chloride 107 mmol/L (98-107); Glucose 123 mg/dL (74-106); Sodium 142 mmol/L (136-145)
[2020-05-18] MEDS: Normal Saline Flush 10 ML SYR IVP (08:26)
[2020-05-18 08:28] LABS: Potassium 4.3 mmol/L (3.5-5.1)
[2020-05-18 09:42] LABS: Calculated LDL 86 mg/dL (<100); Cholesterol 157 mg/dL (<200); HDL Cholesterol 63 mg/dL (40-60); Triglyceride 44 mg/dL (<150)
[2020-05-18 10:27] LABS: COVID-19 PCR Negative (Negative)
[2020-05-18 13:52] LABS: Troponin I 0.07 ng/mL (<0.06)
--- NOTE | 2020-05-18 15:42 | W.PM.DS.N ---
Date of service: 05/18/20 Time of Service: 15:43 DS: Diagnosis Discharge Diagnosis (1) Paroxysmal atrial fibrillation with RVR: Start date: 05/18/20 Start time: 15:43 Status: Resolved Asessment and Plan: Now in SR with HR of 60's required Dilt on arrival to ED. Denies CP, Agreeable to echo, will place 30 day event recorder, will defer to PCP for decision on patient having NPI after 30 day event recorder. Will trial asa baby 81 mg (2) SVT (supraventricular tachycardia): Start date: 05/18/20 Start time: 15:47 Status: Resolved Asessment and Plan: If this continues and EF normal consider adding or switching to CCB (3) Prediabetes: Start date: 05/18/20 Start time: 15:47 Status: Chronic Asessment and Plan: She does for diabetics and follows low carbs (4) Dehydration: Start date: 05/18/20 Start time: 15:48 Status: Acute Asessment and Plan: Admits to only drinking 1 cup of coffee nothing else, likely why she continues to have RVR, discussed with Her about increasing fluid intake (5) Subclinical hypothyroidism: Start date: 05/18/20 Start time: 15:51 Status: Acute Asessment and Plan: With normal t free 4. recommend repeat Tsh in couple weeks. Discharge Plan Disposition Condition: Stable Discharge Details Reason For Visit: AFIB WITH RVR Admit Date/Time: 05/18/20 04:13 Admit Provider: Jie Walters Attending Provider: Jie Walters Primary Care Provider: Lillian Huggins [facility] Course Hospital Course: Ms Gupta is a 74 year old female with PMHx of PSVT/Afib, on metoprolol and eliquis, as well as h/o prediabetes, subclinical hypothyroidism, anxiety d/o, obesity with BMI of 38.4, who was brought to [facility] ED by ambulance after a sudden onset of palpitations/fast irregular rhythm and lightheadedness at home circa 11 pm. The patient took her evening dose of metoprolol, but the heart did not slow down from 190s-200s (SVT) until she received 20 mg of IV diltiazem by EMS. By the time she arrived to the ED, she was relatively rate controlled and asymptomatic. The patient never had chest pain, nausea, shortness of breath, and never felt like she might faint with the episode. She denies caffeine or alcohol intake, and admits only to a small amount of chocolate. She admits to not eating or drinking water for a prolonged period of time yesterday because of something else going on. There is a lot of stress in her life (financial, life changes, she does not elabotrate more than that). She does state that she has been relatively deconditioned since she stopped attending cardiac rehab since the COVID pandemic started in 2019.The rapid heart rate last happened about 1 year ago, but Afib recurs more frequently than that. The patient is no longer following with Dr Vale. In the ED, her initial troponin was negative, but repeat was 0.08. This is now up to 0.10. The patient has never had a stress test and is hesitating to have one on this addmission. It has been several years since she has had an echocardiogram. She was admitted for further management. Troponin is trending down now 0.07, she is agreeable to outpatient echo with 30 day event recorder. We discussed her drinking more fluids. She stated that she has a hard time swallowing but has convinced herself this is anxiety, I would have liked to work this up further but she was not willing to talk about work up therefore will defer to PCP for possible further workup we also talked about coping strategies for her anxiety and depression. Encouraged further Po intake through out the day. She is agreeable to echo as an outpatient will defer to PCP for further testing with possible NPI after 30 day event recorder results. She did have an elevated TSH with normal t free 4 repeat tsh in couple months. If echo normal and she continues to RVR with normal EF consider adding or switching CCB. She is willing to try baby aspirin daily. She denies CP, SOB, N/V/D. She is being discharged home. Follow up with PCP next week. Home Meds and New Rx's Prescriptions: Continued multivitamin [Daily Multi-Vitamin] 1 EACH tablet 1 ea PO DAILY RF: 0 metoprolol tartrate 100 MG tablet 100 mg PO BID Qty: 180 RF: 0 Eliquis 5 MG tablet 5 mg PO BID Qty: 60 RF: 3 Discharge Instructions Instructions: A-fib (Atrial Fibrillation) (DC), Supraventricular Tachycardia (DC), Dehydration (DC) Additional Instructions: Recommend vitamin D and B for depression Increase fluid intake Take an 81 mg baby aspirin chewable daily Echo as an outpatient We will call you tomorrow after we set up an appt with your primary provider. 30 day event monitor, continue all normal activity. Stand Alone Forms: Nursing Discharge Form Referrals: Lillian Huggins MD [Primary Care Provider] - (we will make an appt for you this coming week and will call you tomorrow with the date and time) Activity:: Activity as Tolerated Activity:: Activity as Tolerated Equipment/Supplies:: 30 day event recorder Diet:: Carb Counting Discharge Orders Other Ambulatory Orders: US echocardiogram (Routine) Location: None Selected Ordered By: Liliya Heaton DS: Summary Time Spent with Patient providing and/or coordinating discharge services: Greater than 30 minutes (approx 60 mins spent) Status at Discharge Functional status at discharge: independent ambulation Overall status at discharge: patient is progressing back to baseline Mental Status: mental status grossly normal Speech and Movement: speech and movement normal Mood: congruent mood Affect: normal affect Exam Narrative Exam Narrative: General: Very pleasant mildly anxious elderly female, A&Ox3, sitting up comfortably in bed Neurological: A&Ox3, no focal deficits Psychiatric: mildly anxious, appropriate speech pattern/content Skin: Visible skin intact HEENT: Atraumatic, normocephalic, EOMI, dry MM, clear oropharynx, no submandibular or cervical lymphadenopathy, +mild goiter, no JVD Cardiovascular: RRR, no m/r/g Lungs: CTAB Gastrointestinal: soft, nontender, nondistended Genitourinary: deferred Extremities: +1 BLE edema - chronic, symmetric - no c/c; +1 pedal pulses B Psych Mental Status: mental status grossly normal Speech and Movement: speech and movement normal Mood: congruent mood Affect: normal affect DS: Data Vitals/I&O Vitals and I&O: Vital Signs Temperature 35.8 C L 05/18/20 14:10 Temperature Source Tympanic 05/18/20 14:10 Pulse 65 05/18/20 14:10 Pulse Rhythm Irregular 05/18/20 08:25 Pulse 89 05/18/20 04:14 Respiratory Rate 16 05/18/20 14:10 Respiratory Effort 05/18/20 08:25 Respiratory Depth Normal 05/18/20 08:25 Respiratory Pattern Normal 05/18/20 08:25 Blood Pressure 144/80 H 05/18/20 14:10 Pulse Oximetry 100 05/18/20 14:10 Oxygen Delivery Method Room Air 05/18/20 14:10 Oxygen Flow Rate 0 05/18/20 14:10 Pain Level 0 05/18/20 14:10 Intake & Output 05/17/20 05/18/20 05/18/20 23:59 11:59 23:59 Intake Total 1500 / 1500 Output Total 375 / 375 Balance 1125 / 1125 Weight 95.3 kg 95.3 kg Intake: IV 1100 / 1100 Oral 400 / 400 Output: Urine 375 / 375 Other: Urine Color Yellow Urine Appearance Clear Urine Odor Normal Voiding Methods Toilet Data Completed and Pending Completed studies during hospitalization [Text1]: Exam(s) PROCEDURE INFORMATION: Exam: XR Chest Exam date and time: 05/18/2020 12:05 AM Age: 74 years old Clinical indication: Patient HX: Afib, rvr, palpitations; Additional info: Eval for infiltrate TECHNIQUE: Imaging protocol: XR of the chest Views: 1 view. COMPARISON: CR CHEST 2 VIEWS PA,LAT 10/25/2016 11:52 AM FINDINGS: Lungs: Unremarkable. No consolidation. Pleural spaces: Unremarkable. No pleural effusion. No pneumothorax. Heart/Mediastinum: Unremarkable. No cardiomegaly. Bones/joints: Unremarkable. IMPRESSION: No acute findings. Labs on day of discharge: Labs from last 24 hours 05/18/20 05/18/20 05/18/20 13:25 08:05 08:05 WBC RBC Hgb Hct MCV MCH MCHC RDW Plt Count MPV Immature Gran % Neutrophils % Lymphocytes % Monocytes % Eosinophils % Basophils % Nucleated RBC % Absolute Neutrophils Absolute Lymphocytes Absolute Monocytes Absolute Eosinophils Absolute Basophils PT INR APTT Sodium 142 Potassium 4.3 D Chloride 107 Carbon Dioxide 26.3 Anion Gap 8.7 BUN 11 Creatinine 0.6 Estimated GFR/1.73 m2 >= 60.00 Glucose 123 H Hemoglobin A1c Pending Calcium 9.0 Magnesium 2.0 Total Bilirubin AST ALT Alkaline Phosphatase Troponin I 0.07 H NT-Pro-B Natriuret Pep Total Protein Albumin Triglycerides 44 Total Cholesterol 157 LDL Cholesterol, Calc 86 HDL Cholesterol 63 TSH Free T4 Urine Color Urine Clarity Urine pH Ur Specific [place] Urine Protein Urine Ketones Urine Blood Urine Nitrite Urine Bilirubin Urine Urobilinogen Ur Leukocyte Esterase Urine Glucose COVID-19 Source SARS-CoV-2 (PCR) 05/18/20 05/18/20 05/18/20 08:05 04:10 03:45 WBC RBC Hgb Hct MCV MCH MCHC RDW Plt Count MPV Immature Gran % Neutrophils % Lymphocytes % Monocytes % Eosinophils % Basophils % Nucleated RBC % Absolute Neutrophils Absolute Lymphocytes Absolute Monocytes Absolute Eosinophils Absolute Basophils PT INR APTT Sodium Potassium Chloride Carbon Dioxide Anion Gap BUN Creatinine Estimated GFR/1.73 m2 Glucose Hemoglobin A1c Calcium Magnesium Total Bilirubin AST ALT Alkaline Phosphatase Troponin I 0.10 H* NT-Pro-B Natriuret Pep Total Protein Albumin Triglycerides Total Cholesterol LDL Cholesterol, Calc HDL Cholesterol TSH Free T4 Urine Color Yellow Urine Clarity Clear Urine pH 7.0 Ur Specific [place] 1.020 Urine Protein Negative Urine Ketones Negative Urine Blood Negative Urine Nitrite Negative Urine Bilirubin Negative Urine Urobilinogen 0.2 Ur Leukocyte Esterase Negative Urine Glucose Negative COVID-19 Source Nasal/nares SARS-CoV-2 (PCR) Negative 05/18/20 05/18/20 05/18/20 02:50 00:00 00:00 WBC 9.89 RBC 4.59 Hgb 15.1 Hct 46.5 H MCV 101.3 H MCH 32.9 MCHC 32.5 RDW 13.2 Plt Count 219 MPV 12.5 H Immature Gran % 0.2 Neutrophils % 41.9 Lymphocytes % 47.9 Monocytes % 8.6 Eosinophils % 1.1 Basophils % 0.3 Nucleated RBC % 0 Absolute Neutrophils 4.14 Absolute Lymphocytes 4.74 H Absolute Monocytes 0.85 H Absolute Eosinophils 0.11 Absolute Basophils 0.03 PT 9.9 INR 1.0 APTT 26.4 Sodium Potassium Chloride Carbon Dioxide Anion Gap BUN Creatinine Estimated GFR/1.73 m2 Glucose Hemoglobin A1c Calcium Magnesium Total Bilirubin AST ALT Alkaline Phosphatase Troponin I 0.08 H* NT-Pro-B Natriuret Pep Total Protein Albumin Triglycerides Total Cholesterol LDL Cholesterol, Calc HDL Cholesterol TSH Free T4 Urine Color Urine Clarity Urine pH Ur Specific [place] Urine Protein Urine Ketones Urine Blood Urine Nitrite Urine Bilirubin Urine Urobilinogen Ur Leukocyte Esterase Urine Glucose COVID-19 Source SARS-CoV-2 (PCR) 05/18/20 00:00 WBC RBC Hgb Hct MCV MCH MCHC RDW Plt Count MPV Immature Gran % Neutrophils % Lymphocytes % Monocytes % Eosinophils % Basophils % Nucleated RBC % Absolute Neutrophils Absolute Lymphocytes Absolute Monocytes Absolute Eosinophils Absolute Basophils PT INR APTT Sodium 141 Potassium 3.1 L Chloride 103 Carbon Dioxide 23.9 Anion Gap 14.1 H BUN 15 Creatinine 0.8 Estimated GFR/1.73 m2 >= 60.00 Glucose 124 H Hemoglobin A1c Calcium 9.5 Magnesium Total Bilirubin 0.4 AST 25 ALT 31 Alkaline Phosphatase 149 H Troponin I < 0.05 NT-Pro-B Natriuret Pep 484 H Total Protein 7.6 Albumin 3.7 Triglycerides Total Cholesterol LDL Cholesterol, Calc HDL Cholesterol TSH 9.16 H Free T4 1.29 Urine Color Urine Clarity Urine pH Ur Specific [place] Urine Protein Urine Ketones Urine Blood Urine Nitrite Urine Bilirubin Urine Urobilinogen Ur Leukocyte Esterase Urine Glucose COVID-19 Source SARS-CoV-2 (PCR) PFSH Medical History Anxiety Anxiety and depression Ataxia Atrial fibrillation Bilateral hearing loss Bilateral tinnitus Dizziness Edema Elevated TSH HLD (hyperlipidemia) Hypertension Hypoglycemia Obesity 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) Onychomycosis Osteopenia Prediabetes PSVT (paroxysmal supraventricular tachycardia) Recurrent UTI Sensorineural hearing loss, bilateral (11/27/15) Transient cerebral ischemia (11/23/16) Visual field defect Surgical History No pertinent past surgical history Family History Father Heart disease Mother Hypertension Cancer cholangiocarcinoma Paternal Grandmother Cancer uterine ca Social History Smoking/Tobacco Use Status: Former Tobacco Use Quit Date: 02/21/11 Tobacco: How many years used: 45 Smoking risk assessment performed?: Yes Alcohol Intake: never Drug use: Never Substance use type: does not use What type of physical activity do you participate in: sedentary lifestyle Do you feel safe at home: Yes Do you feel safe in your relationship?: Yes
[2020-05-18 16:20] LABS: Hemoglobin A1C 5.6 % (<5.7)
[2020-05-19 16:35] LABS: Vitamin B12 489 pg/mL (211-911)
--- NOTE | 2020-06-27 14:38 | CER_ITS ---
Date of service: 06/27/20 Time of Service: 14:38 Cardiac Event Recorder Referring Provider:: Jie Walters Indications:: Atrial fibrillation Cardiac Event Note: This was a 30-day satellite project site monitor Predominant rhythm was sinus with first-degree AV block. Average heart rate was 61 There were moderately frequent atrial premature beats and multiple brief self- limited atrial runs There were rare ventricular ectopic beats There was one episode of possible atrial flutter versus frequent PACs with baseline artifact. This lasted about a minute Patient symptoms corresponded to atrial runs, PACs, PVCs There was no high-grade AV block, no pauses greater than 3 seconds
== END 2020-05-18 17:03 | disposition home or self-care (01) ==
LOC: ER 05-18 04:17 → MS 05-18 04:43
PROVIDERS: Nurse Practitioner Family; Admitting Provider Internal Medicine; Emergency Provider Student in an Organized Health Care Education/Training Program; PCP Family Medicine; Visit Provider Internal Medicine
DX: I48.0 Paroxysmal atrial fibrillation (principal); I47.1 Supraventricular tachycardia; R73.03 Prediabetes; E16.2 Hypoglycemia, unspecified; E86.0 Dehydration; E03.9 Hypothyroidism, unspecified; Z79.01 Long term (current) use of anticoagulants; F41.9 Anxiety disorder, unspecified; E66.9 Obesity, unspecified; F41.8 Other specified anxiety disorders; R42 Dizziness and giddiness; L60.0 Ingrowing nail; E78.5 Hyperlipidemia, unspecified; I10 Essential (primary) hypertension; H90.3 Sensorineural hearing loss, bilateral; Z86.73 Personal history of transient ischemic attack (TIA), and cerebral infarction without residual deficits; Z20.822 Contact with and (suspected) exposure to COVID-19
CPT/HCPCS: 36415; 80048; 80053; 80061; 87635; 93005; 93270; 96361; 96365; 96366; 99217; 99220; 99285; 71045; 81003; 82607; 82746; 83036; 83735; 83880; 84439; 84443; 84484; 85025; 85610; 85730; 93010; 99236; G0378; J3480

== ENCOUNTER → 2020-06-24 13:53 | Outpatient (BNVA) | payer MEDICARE, MEDICAID, SELFPAY | PROVIDERS: PCP Family Medicine; Referring Provider Family Medicine; Visit Provider Urology | DX: N39.0 Urinary tract infection, site not specified (principal) | CPT/HCPCS: 99213; 99443 ==

== ENCOUNTER 2020-06-27 04:44 | Outpatient (CLI) | payer MEDICARE, MEDICAID, SELFPAY ==
--- NOTE | 2020-06-27 | DI.US_ITS ---
APPROVED REPORT EXAM: Comprehensive 2D, Doppler, and color-flow Echocardiogram Patient Location: Out-Patient Hemstitcher: Terri García RDCS (AE) Indications: Atrial Fibrillation Other Information Study Quality: Fair. Technically limited study due to body habitus. Conclusion Normal left ventricular wall thickness and chamber size. Estimated ejection fraction is 60%. There ar e no segmental wall motion abnormalities Normal right ventricular size and systolic function Both atria are normal in size Sclerotic trileaflet aortic valve with mild regurgitation Mild mitral annular calcification. Mild mitral regurgitation Normal tricuspid valve with mild regurgitation Trace pulmonic regurgitation Wall motion Left Ventricle The left ventricle is normal size. The left ventricular systolic function is normal. The left ventric ular ejection fraction is within the normal range. There is normal left ventricular wall thickness. T here is normal LV segmental wall motion. There is no ventricular septal defect visualized. LVEF is 60 %. Right Ventricle Right ventricle is grossly normal in size. Right ventricular systolic function is grossly normal. The RVSP is 36.0mmHg. Atria The left atrium size is normal. The right atrium size is normal. The interatrial septum is intact wit h no evidence for an atrial septal defect. Aortic Valve The Aortic valve is sclerotic. Aortic valve is trileaflet. There is no aortic valvular stenosis. Mild aortic regurgitation. Mitral Valve Mild mitral annular calcification. No evidence of mitral valve stenosis. Mild mitral regurgitation. Tricuspid Valve The tricuspid valve is normal in structure. There is no tricuspid valve stenosis. Mild tricuspid regu rgitation. Pulmonic Valve Pulmonic valve is not well visualized. There is no pulmonic valvular stenosis. Trace pulmonic regurgi tation. Great Vessels The aortic root is normal in size. Ascending aorta is not well visualized. Aortic arch is normal in c aliber. IVC is normal in size and collapses >50% with inspiration. Pericardium There is no pericardial effusion. 2D Dimensions IVSD d PLAX 1.01 cm F: 0.6-1.0 LV Vol A2C d MOD 62.3 mL LVPW d PLAX 1.03 cm F: 0.6 - 1.0 LV Vol A4C d MOD 56.1 mL LVID d PLAX 4.93 cm F: 3.8 - 5.2 LA vol/ BSA A2C s A-L 20.7 mL/m2 LVDs 3.35 cm F: 2.2 - 3.5 LA vol/ BSA A4C s A-L 22.9 mL/m2 Ao Root d 2.79 cm F: 2.7 - 3.3 LA Vol/ BSA Biplane s A-L 24.1 mL/m2 RA Area A4C 10.30 cm2 LA Area A4C s MOD 17.40 cm2 RA Vol/ BSA A4C s A-L 10.6 mL/m2 LA Area A2C s MOD 14.96 cm2 LV EF Teichholz 58.8 % LV EF A4C MOD 64.4 % LVEF (Christie's) 61.43 % F: 54 - 74 LV EF A2C MOD 61.2 % LV Volume 45.92 mL F: 46 - 106 LV EF Biplane MOD 61.4 % LV Volume Index 24.29 mL/m2 F: 29 - 61 SV 36.91 mL LV Vol Biplane MOD 60.1 mL SV Index 19.52 mL/m2 FS 31.15 % M-Mode TAPSE 2.80 cm (M/F) >1.7 LV Diastology MV E' medial 0.072 (>0.07 m/s) E/A Ratio 0.8 LV E/e MED 11.65 (<14) MV E Vmax 0.85 (0.4-1.3 m/s) MV E' lateral 0.083 (>0.1 m/s) MV A Vmax 1.05 (0.4-1.3 m/s) LV E/e LAT 10.15 (<14) MV E/A Ratio 0.80 MV E/E' medial 11.68 MV E/E' lateral 10.17 Aortic Valve LVOT Area 3.06 cm2 AoV Area Vmax 2.27 cm2 LVOT Vmax 0.97 m/s AoV Area/ BSA (Vmax) 1.20 cm2/m2 LVOT Mean Pietro. 0.66 m/s SHU Mean Pietro. 2.26 cm2 LVOT Peak Grad 3.7 mmHg SHU Mean Pietro. Index 1.19 cm2/m2 LVOT Mean Grad 2.0 mmHg AR DT 1243 msec LVOT VTI 0.249 m AR PHT 361 msec LVOT Diam s 1.95 cm AoV Vmax 1.31 m/s Velocity Ratio 0.74 AoV Mean Pietro. 0.90 m/s AoV Peak Grad 6.8 mmHg LVOT SV 76.16 mL AoV Mean Grad 3.6 mmHg AoV VTI 0.321 m AoV Area VTI 2.37 cm2 AoV Area/ BSA (VTI) 1.25 cm/m2 Mitral Valve MV DT 166 (160-240 msec) MR Vmax 4.99 m/s MV PHT 48 msec MR VTI 1.924 m MV Area PHT 4.58 cm2 MR Peak Grad 99.5 mmHg MV VTI 0.354 m MR Mean Grad 66.6 mmHg MV VTI Annulus 0.368 m MR PISA Radius 0.44 cm MV Area VTI 2.24 (4.0-6.0 cm2) MR EROA 0.09 cm2 MR Aliasing Velocity 0.35 m/s MR PISA 1.24 cm2 Pulmonary Valve PV Vmax 0.77 (0.5-1.5 m/s) RVOT Peak Gr. 0.68 mmHg PV Peak Grad 2.4 mmHg RVOT Mean Gr. 0.45 mmHg PV Mean Grad 1.6 mmHg RVOT VTI 0.087 m PV VTI 0.197 m RVOT Vmax 0.41 m/s Tricuspid Valve TR Peak Grad 32.9 mmHg TR Vmax 2.87 m/s RA Pressure 3.00 mmHg RVSP (TR) 36.0 mmHg
== END 2020-06-27 05:04 ==
PROVIDERS: PCP Family Medicine; Visit Provider Family Medicine
DX: I48.0 Paroxysmal atrial fibrillation (principal); R93.9 Diagnostic imaging inconclusive due to excess body fat of patient; I08.3 Combined rheumatic disorders of mitral, aortic and tricuspid valves
CPT/HCPCS: 93306

== ENCOUNTER 2020-06-27 14:38 | Outpatient (CLI) | payer MEDICARE, MEDICAID, SELFPAY | END 2020-06-27 14:39 | LOC: CARDO 06-30 12:37 | PROVIDERS: PCP Family Medicine; Referring Provider Internal Medicine; Visit Provider Internal Medicine Cardiovascular Disease | DX: I48.91 Unspecified atrial fibrillation (principal); I49.1 Atrial premature depolarization | CPT/HCPCS: 93248; 93272 ==

== ENCOUNTER → 2020-07-10 14:47 | Outpatient (BNVA) | payer MEDICARE, MEDICAID, SELFPAY | PROVIDERS: PCP Family Medicine; Referring Provider Family Medicine; Visit Provider Internal Medicine Cardiovascular Disease | DX: I48.0 Paroxysmal atrial fibrillation (principal); E86.0 Dehydration | CPT/HCPCS: 99214; 99443 ==

== ENCOUNTER 2020-09-20 09:39 | Emergency (ER) | payer MEDICARE, MEDICAID, SELFPAY ==
[2020-09-20 09:38] VITALS: PULSE 81; RESP 18; TEMP 36.5; O2SAT 98
[2020-09-20 09:48] VITALS: BP 190/86
--- NOTE | 2020-09-20 10:00 | ED.GENADUL_ITS ---
Discharge Plan Disposition Patient Disposition: HOME Condition: Stable Discharge Details Clinical Impression: Right nephrolithiasis, Hematuria Primary Care Provider: Lillian Huggins ED Provider: Luann Gaspar Home Meds and New Rx's Prescriptions: New tamsulosin [Flomax] 0.4 mg capsule 0.4 mg PO DAILY Qty: 7 RF: 0 oxycodone 5 mg/5 mL solution 5 mg PO Q6H PRN (Reason: pain) Qty: 15 RF: 0 Continued multivitamin [Daily Multi-Vitamin] 1 EACH tablet 1 ea PO DAILY RF: 0 metoprolol tartrate 100 MG tablet 100 mg PO BID Qty: 180 RF: 0 Eliquis 5 MG tablet 5 mg PO BID Qty: 60 RF: 3 Discharge Instructions Instructions: Kidney Stones (ED), Hematuria (ED) Additional Instructions: Your imaging was concerning today for kidney stone. Please take the Flomax as prescribed to help promote the passage of the stone. You were given your dosing here today. Next dose is not due until tomorrow. Please do not crush or chew this pill. Please encourage hydration. You may use Tylenol as needed for discomfort. If this is insufficient at alleviating your discomfort, you may use the oxycodone liquid as prescribed. If you are concerned about the effect of this medication, you may take half at a time. Please do not drive or drink alcohol while using this medication. Please contact Dr. Desai's office on Tuesday to schedule follow-up appointment. Number listed below. If you develop fever/chills, increased pain, inability stay hydrated or other new/worsening symptoms please seek care urgently once again. Referrals: Ady Desai MD [ [facility] STAFF PHYSICIAN] - Discharge Data Discharge Date/Time-TO BE ENTERED AT DEPARTURE: 09/20/20 14:39 Medical Decision Making Patient is a pleasant 74 year old female brought in via EMS with c/c of right sided flank pain that began this AM. Pain has waxed and waned with no identifiable cause of worsening pain. States when pain is maximal, it is stabbing and can radiate from right flank to the RLQ of abdomen. States hwen pain is maximal it can induce nausea. No vomiting. Has not had pain like this historically. No trauma. Denies fevers/chills. Denies vaginal discharge. No UTI symptos althought she states that she has had multiple UTIs historically but is not experiencing these symptoms today. On exam, patient appears nontoxic. She initially appeared very uncomfortable but this then seemed to improve. She received zofran prior to arrival which worked well for her. She is tender with right CVA percussion. No abdominal pain with palpation although she does state hwne pain is severe it radiates toward RLQ. No peritoneal findings. No rash. Patient is anticoagulated on Eliquis. She feels that pain is muscular. I am concerned for potential stone. Also considered pyelonephritis. Doubt GI source at this time. Bebo is very hesistant to use medications for pain. She used APAP prior to arrival. Would like to try topical option first. Pain increased and is severe again, will give 2mg IV Morphine. Urine is heavily contaminated. Will straight cath for repeat sample. Labs reviewed, no leukocytosis, stable H&H. Creatinine stable. Normal GFR. CT reviewed by radiologist: FINDINGS: Lungs: Bibasilar atelectasis Liver: 3.3 cm simple cyst in the liver. Additional smaller simple cysts in the liver. No follow-up imaging recommended . Gallbladder and bile ducts: Normal. No calcified stones. No ductal dilation. Pancreas: Normal. No ductal dilation. Spleen: Normal. No splenomegaly. Adrenal glands: Normal. No mass. Kidneys and ureters: 5.9 millimeter distal RIGHT ureteral calculus causes moderate dilatation of the RIGHT ureter, and RIGHT collecting system. The RIGHT kidney is edematous and there is RIGHT perirenal stranding. Nonobstructing renal calculi bilaterally Stomach and bowel: Unremarkable. No obstruction. No mucosal thickening. Appendix: No evidence of appendicitis. Intraperitoneal space: Unremarkable. No free air. No significant fluid collection. Vasculature: Unremarkable. No abdominal aortic aneurysm. Lymph nodes: Unremarkable. No enlarged lymph nodes. Urinary bladder: Unremarkable as visualized. Reproductive: Unremarkable as visualized. Bones/joints: Unremarkable. No acute fracture. Soft tissues: Unremarkable. IMPRESSION: 5.9 millimeter distal RIGHT ureteral calculus causes moderate dilatation of the RIGHT ureter, and RIGHT collecting system. The RIGHT kidney is edematous and there is RIGHT perirenal stranding. Discussed the findings with the patient. We will begin patient on Flomax. I did consult with pharmacist as patient is unable to tolerate pills. They recommended breaking open the capsule and putting on yogurt and the patient being instructed to not chewing. Patient is agreement with this plan. Repeat urinalysis shows a large amount of blood. Negative for nitrite. Color interference makes leukocyte esterase difficult to evaluate. However, this was negative on urinalysis performed earlier.. Bacterial count is also not able to be obtained secondary to the amount of RBCs. This has been reflex to culture. As the patient has been afebrile, no leukocytosis, negative leukocyte esterase, negative nitrite, I highly doubt infected stone. Patient I discussed treatment options. She is a patient of Dr. Cariron at baseline. States that she does have an upcoming appointment with him. However, I did advise that she call the office on Tuesday to schedule more prompt evaluation. Return precautions were discussed. Patient has been comfortable. She will continue with the Flomax until passage of stone. We will have her strain her urine. All of her questions and concerns were addressed and she is agreement this plan. HPI General Mode of arrival: EMS . Date/Time Provider Initiated Documentation: 09/20/20 10:00 . Limitations to Documentation: no limitations . Information obtained by: patient, RN/MD (contacted by PCP prior to arrival), EMS and RN notes reviewed . History of Present Illness 74 year old F presents to the emergency department with the chief complaint of right sided back pain, described as severe, with intensity rated at 9. Quality is described as stabbing, and is localized to the back (right flank). Patient abdomen (toward right lower abdomen). Patient started experiencing this hour(s) (woke with this pain this AM) and it has been intermittent and colicky. No relieving factors improve symptom(s), No exacerbating factors reported . Patient notes nausea/vomiting (nausea, no vomiting); denies chest pain, cough, fever/chills, malaise, rash, shortness of breath and weakness. Patient did receive the following treatments prior to arrival, none Related Data Home Medications Medication Instructions Recorded Confirmed multivitamin [Daily Multi-Vitamin] 1 ea PO DAILY 11/23/16 09/22/20 Eliquis 5 mg PO BID #60 tab 12/20/16 09/22/20 metoprolol tartrate 100 mg PO BID #180 tab-cap 02/16/17 09/22/20 oxycodone 5 mg PO Q6H PRN #15 ml 09/20/20 09/22/20 tamsulosin [Flomax] 0.4 mg PO DAILY #7 cap 09/20/20 09/22/20 Previous Rx's Medication Instructions Recorded Eliquis 5 mg PO BID #60 tab 12/20/16 metoprolol tartrate 100 mg PO BID #180 tab-cap 02/16/17 oxycodone 5 mg PO Q6H PRN #15 ml 09/20/20 tamsulosin [Flomax] 0.4 mg PO DAILY #7 cap 09/20/20 Allergies Allergy/AdvReac Type Severity Reaction Status Date / Time amoxicillin [Amoxicillin] AdvReac Mild Topical Verified 09/20/20 10:00 Irritation General Stated Complaint: Abd Prob AURE: 3 Review of Systems Constitutional Constitutional: Reports as per HPI, Denies chills, Denies fatigue, Denies fever(s) and Denies headache(s) ENT Ears, Nose, Mouth, and Throat: Denies headache(s) Cardiovascular Cardiovascular: Reports as per HPI, Denies chest pain and Denies dyspnea Respiratory Respiratory: Reports as per HPI, Denies cough and Denies dyspnea Gastrointestinal Gastrointestinal: Reports as per HPI Genitourinary Genitourinary: Reports as per HPI, Denies difficulty voiding, Denies dysuria, Denies pelvic pain, Denies urinary urgency and Denies vaginal discharge Musculoskeletal Musculoskeletal: Reports as per HPI Neurologic Neurologic: Denies headache(s) Endocrine Endocrine: Denies fatigue [facility] Medical History Anxiety Anxiety and depression Ataxia Atrial fibrillation Bilateral hearing loss Bilateral tinnitus Dizziness Edema Elevated TSH HLD (hyperlipidemia) Hypertension Hypoglycemia Obesity 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) Onychomycosis Osteopenia Prediabetes PSVT (paroxysmal supraventricular tachycardia) Recurrent UTI Sensorineural hearing loss, bilateral (11/27/15) Transient cerebral ischemia (11/23/16) Visual field defect Surgical History No pertinent past surgical history Family History Father Heart disease Mother Hypertension Cancer cholangiocarcinoma Paternal Grandmother Cancer uterine ca Social History Smoking/Tobacco Use Status: Former Tobacco Use Quit Date: 02/21/11 Tobacco: How many years used: 45 Smoking risk assessment performed?: Yes Alcohol Intake: never Drug use: Never Substance use type: does not use What type of physical activity do you participate in: none and sedentary lifestyle Do you feel safe at home: Yes Do you feel safe in your relationship?: Yes Exam Const General: cooperative, healthy appearing, uncomfortable, no acute distress and well developed Nutritional Appearance: well nourished and overweight Orientation: alert and awake HENMT Mouth: moist mucous membranes Resp Effort & Inspection: normal respiratory effort and no respiratory distress Auscultation: clear to auscultation bilaterally, no rales, no rhonchi and no wheezes Cardio Rate: regular rate Rhythm: regular rhythm Heart Sounds: S1 normal and S2 normal GI Inspection: normal to inspection, no edema and non-distended Palpation: soft, no hepatosplenomegaly, no guarding, no hernias, no pulsatile masses and nontender Percussion: normal to percussion Auscultation: normal bowel sounds Back/Spine/Pelvis Back: CVA tenderness (right side) Cervical Spine: No pain with cervical ROM and No cervical spinal tenderness Thoracic/Lumbar Spine: thoracic and lumbar spine normal to inspection, No paraspinal tenderness, No thoraco-lumbar ROM limited, No thoracic spinal tenderness and No lumbar spinal tenderness Pelvis: no pain with anterior-posterior compression and no pain with lateral compression Skin General skin exam: no rashes or lesions noted Neuro General: patient alert and patient awake Cognition: normal cognition Speech: speech normal Psych Appearance: grossly normal and well kempt Mental Status: mental status grossly normal Speech and Movement: speech and movement normal Course Vital Signs Vital signs: Vital Signs Temperature 36.5 C 09/20/20 09:38 Pulse 81 09/20/20 09:38 Respiratory Rate 18 09/20/20 09:38 Pulse Oximetry 98 09/20/20 09:38 Temperature 36.5 C 09/20/20 09:38 Pulse 81 09/20/20 09:38 Respiratory Rate 18 09/20/20 09:38 Respiratory Effort 09/20/20 09:59 Blood Pressure 190/86 H 09/20/20 09:48 Pulse Oximetry 98 09/20/20 09:38 Oxygen Delivery Method Room Air 09/20/20 09:38 Oxygen Flow Rate 0 09/20/20 09:38 Pain Level 9 09/20/20 09:38
--- NOTE | 2020-09-20 10:02 | NUR.NOTE ---
voided in commode on arrival after cleansing with wipes, clean catch spec obtained
[2020-09-20] MEDS: Normal Saline 1,000 ML 1000 ML IV (10:18)
[2020-09-20 10:32] LABS: Abs Immature Grans 0.02 10^3/uL (0.0-0.06); Absolute Basophil Count 0.02 10^3/uL (0.0-0.2); Absolute Eosinophil Count 0.05 10^3/uL (0.0-0.7); Absolute Lymphocyte Count 1.49 10^3/uL (1.2-3.4); Absolute Monocyte Count 0.54 10^3/uL (0.1-0.8); Absolute Neutrophil Count 4.74 10^3/uL (1.2-6.7); Basophils % 0.3; Eosinophils % 0.7; HCT 43.1 % (36.0-46.0); HGB 13.9 g/dL (11.2-15.7); Immature Grans % 0.3; Lymphocytes % 21.7; MCH 32.6 pg (27.0-33.0); MCHC 32.3 % (32.0-36.0); MCV 100.9 fL (80-95); MPV 12.3 fL (8.0-11.0); Monocytes % 7.9; Neutrophils % 69.1; Nucleated RBC 0 %; Platelet Count 189 10^3/uL (130-400); RBC 4.27 10^6/uL (3.93-5.22); RDW 13.2 % (11.7-14.6); RDW-SD 49.4 fL; WBC 6.86 10^3/uL (4.4-10.8)
[2020-09-20 10:37] LABS: Bilirubin Negative (Negative); Blood Large (Negative); Clarity Cloudy (Clear); Glucose Negative (Negative); Ketones Negative (Negative); Leukocyte Esterase Negative (Negative); Nitrite Negative (Negative); Specific Gravity >= 1.030 (1.005-1.025); Urobilinogen 0.2 EU/dL (Up TO 0.2); pH 5.5 (5-8)
[2020-09-20] MEDS: Lidocaine 5% Patch 1 PATCH TP (10:37)
[2020-09-20] MEDS: Ondansetron 4 MG/2 ML VIAL (10:38)
[2020-09-20] MEDS: MORPHine 4 MG/ML SYR (10:41)
[2020-09-20 10:44] LABS: Bacteria Many HPF (Negative); Crystals Other HPF (Negative); Epithelial Cells Moderate HPF (Negative); RBC >50 HPF (0-2)
[2020-09-20 10:45] LABS: C & S Indicated? No/Sq. Contamination; Other Cells Few Renal (Negative)
[2020-09-20 10:48] LABS: ALT 25 U/L (14-59); AST 24 U/L (15-37); Albumin 3.7 g/dL (3.4-5.0); Alkaline Phosphatase 124 U/L (46-116); Anion Gap 10.8 mmol/L (3-11); BUN 20 mg/dL (7-18); Bilirubin, Total 0.4 mg/dL (0.2-1.0); CO2 25.2 mmol/L (21.0-32.0); CREATININE 0.8 mg/dL (0.55-1.02); Calcium 9.7 mg/dL (8.5-10.1); Chloride 107 mmol/L (98-107); Glucose 125 mg/dL (74-106); Potassium 3.7 mmol/L (3.5-5.1); Sodium 143 mmol/L (136-145); Total Protein 7.5 g/dL (6.4-8.2)
[2020-09-20 11:10] VITALS: BP 155/74; PULSE 80; RESP 15; O2SAT 99
--- NOTE | 2020-09-20 11:12 | NUR.NOTE ---
voided inn bedside commode
--- NOTE | 2020-09-20 11:51 | DI.CT_ITS ---
Exam(s) CT RENAL COLIC WO EXAM: CT RENAL COLIC WO INDICATION: right flank pain radiating to the groin. COMPARISON: CT CT BRAIN NECK CTA from 12/11/2019 TECHNIQUE: CT examination was performed without contrast administration. FINDINGS: Images obtained through the lung bases are unremarkable. There are multiple water density masses in the liver consistent with hepatic cysts. No prior studies available comparison. Correlation with h epatic ultrasound recommended to exclude other etiology. Visualized portions of the pancreas are unremarkable. Gallbladder and bile ducts are CT normal. Abdominal aorta is of normal diameter. No significant abdominal wall hernia. No significant abdominal or pelvic adenopathy. Adrenals appear normal bilaterally. There are small bilateral nonobstructing renal calculi. There is right hydronephrosis and hydrourete r to the level of the distal ureter where there is a 6 millimeter in diameter obstructing stone. The distal right ureter is poorly seen, calcifications are noted in this area which may be phleboliths b ut the possibility of additional intraureteral calculi is not entirely excluded. Urinary bladder is empty but otherwise grossly unremarkable in appearance.. IMPRESSION: Bilateral nonobstructing renal calculi noted. Obstructing distal 6 millimeter right ureteral calculus. Additional right ureteral calculi not exclu ded. Multiple hepatic masses noted, presumably cysts, ultrasound correlation requested to exclude solid le sions. RADIATION DOSE DELIVERED: 1,157.99mGy.cm DLP 1,157.99mGy.cm Total DLP CTDIvol RADIATION OPTIMIZATION: All CT scans at this facility use at least one of these dose optimization te chniques: automated exposure control; mA and/or kV adjustment per patient size (includes targeted exa ms where dose is matched to clinical indication); or iterative reconstruction.
[2020-09-20 12:23] LABS: Bilirubin Negative (Negative); Blood Large (Negative); Glucose Negative (Negative); Ketones 15 mg/dL (Negative); Nitrite Negative (Negative); Specific Gravity 1.025 (1.005-1.025); Urobilinogen 0.2 EU/dL (Up TO 0.2); pH 5.5 (5-8)
[2020-09-20 12:26] LABS: Clarity Cloudy (Clear); Leukocyte Esterase Color Interference (Negative)
[2020-09-20 12:27] LABS: C & S Indicated? Yes; RBC >50 HPF (0-2)
--- NOTE | 2020-09-20 12:53 | DI.VRAD_ITS ---
PROCEDURE INFORMATION: Exam: CT Abdomen And Pelvis Without Contrast Exam date and time: 09/20/2020 10:17 AM Age: 74 years old Clinical indication: Abdominal pain; Patient HX: Right flank pain radiating to. The groin. TECHNIQUE: Imaging protocol: Computed tomography of the abdomen and pelvis without contrast. Radiation optimization: All CT scans at this facility use at least one of these dose optimization techniques: automated exposure control; mA and/or kV adjustment per patient size (includes targeted exams where dose is matched to clinical indication); or iterative reconstruction. COMPARISON: US renal 12/02/2017 8:38 AM FINDINGS: Lungs: Bibasilar atelectasis Liver: 3.3 cm simple cyst in the liver. Additional smaller simple cysts in the liver. No follow-up imaging recommended . Gallbladder and bile ducts: Normal. No calcified stones. No ductal dilation. Pancreas: Normal. No ductal dilation. Spleen: Normal. No splenomegaly. Adrenal glands: Normal. No mass. Kidneys and ureters: 5.9 millimeter distal RIGHT ureteral calculus causes moderate dilatation of the RIGHT ureter, and RIGHT collecting system. The RIGHT kidney is edematous and there is RIGHT perirenal stranding. Nonobstructing renal calculi bilaterally Stomach and bowel: Unremarkable. No obstruction. No mucosal thickening. Appendix: No evidence of appendicitis. Intraperitoneal space: Unremarkable. No free air. No significant fluid collection. Vasculature: Unremarkable. No abdominal aortic aneurysm. Lymph nodes: Unremarkable. No enlarged lymph nodes. Urinary bladder: Unremarkable as visualized. Reproductive: Unremarkable as visualized. Bones/joints: Unremarkable. No acute fracture. Soft tissues: Unremarkable. IMPRESSION: 5.9 millimeter distal RIGHT ureteral calculus causes moderate dilatation of the RIGHT ureter, and RIGHT collecting system. The RIGHT kidney is edematous and there is RIGHT perirenal stranding. Dictated and Authenticated by: Edwin Parish MD. Ordering:PALLAVI Kong MD
[2020-09-20 13:03] VITALS: BP 144/81; PULSE 80; RESP 15; O2SAT 95
--- NOTE | 2020-09-20 13:04 | NUR.NOTE ---
took her home metoprolol okayed with provider. ate yogurt with metoprolol,states she cannot swallow pills and crushes them. sitting comfortably in stretcher, playing game on ipad:
--- NOTE | 2020-09-20 13:05 | NUR.NOTE ---
straight cath done and urine spec to lab at 1200
[2020-09-20] MEDS: Tamsulosin 0.4 MG CAPCR PO (13:24)
== END 2020-09-20 14:39 | disposition home or self-care (01) ==
PROVIDERS: Emergency Provider Physician Assistant; PCP Family Medicine
DX: N13.2 Hydronephrosis with renal and ureteral calculous obstruction (principal); R93.2 Abnormal findings on diagnostic imaging of liver and biliary tract; R11.0 Nausea; Z87.440 Personal history of urinary (tract) infections; R73.03 Prediabetes
CPT/HCPCS: 36415; 36416; 51701; 80053; 82962; 96361; 96374; 96375; 99284; 74176; 81003; 81015; 85025; 87086; J2270; J2405

== ENCOUNTER → 2020-09-22 13:16 | Outpatient (BNVA) | payer MEDICARE, MEDICAID, SELFPAY | PROVIDERS: PCP Family Medicine; Referring Provider Family Medicine; Visit Provider Urology | DX: N20.0 Calculus of kidney (principal); N20.1 Calculus of ureter | CPT/HCPCS: 99213; 99215 ==

== ENCOUNTER 2020-10-15 01:15 | Outpatient (CLI) | payer MEDICARE, MEDICAID, SELFPAY ==
--- NOTE | 2020-10-15 08:15 | DI.RAD_ITS ---
Exam(s) XR ABDOMEN FLAT PLATE EXAM: XR ABDOMEN FLAT PLATE CLINICAL HISTORY: right ureteral stone. TECHNIQUE: 2D digital imaging was performed. COMPARISON: CT CT RENAL COLIC WO from 09/20/[address] RENAL COLIC WO from 09/20/2020 FINDINGS: No calculi seen over the left kidney. On the right side there is a 3 millimeter radiopaque density over the mid right kidney level which pr obably corresponds to the finding on the CT scan of 09/20/2020. There are no radiopaque calculi seen along the course of the ureters. Phleboliths are noted both sides of the pelvis. Multilevel chroni c degenerative disc disease in the mid lumbar spine noted. Bowel gas pattern is nonspecific. IMPRESSION: Small radiopaque calculus mid right kidney. DATA REPOSITORY: RADIATION DOSE DELIVERED:
--- NOTE | 2020-10-15 08:15 | DI.US_ITS ---
Exam(s) US RENAL EXAM: US RENAL CLINICAL HISTORY: r/o hydronephrosis, RT NEPHROLITHIASIS, N20.0 TECHNIQUE: Ultrasound of both kidneys performed using standard protocol. COMPARISON: US US ECHOCARDIOGRAM from 06/27/2020 FINDINGS: RIGHT KIDNEY: Measures 8.9 cm in length. No cysts evident. Normal cortical thickness and corticomedullary different iation .No solid masses A nonobstructive 4 millimeter calculus evident in the lower pole right kidney. LEFT KIDNEY: Measures 9.6 cm in length. No cysts evident. Normal cortical thickness and corticomedullary differen tiaion. No solids masses. No intrarenal calculi nor hydonephrosis. URINARY BLADDER: Prevoid volume is 74 cc Postvoid volume not obtained No evidence of bladder mass nor diverticuli. Ureterovesical jets: Ureterovesical jet was identified. Right was not. IMPRESSION: 1. There appears to be a 4 millimeter nonobstructive calculus in the lower pole the right kidney. N o hydronephrosis. No other focal renal findings identified. 2. Urinary bladder prevoid volume was 74 cc. DATA REPOSITORY:
== END 2020-10-15 01:35 ==
PROVIDERS: PCP Family Medicine; Visit Provider Urology
DX: N20.0 Calculus of kidney (principal)
CPT/HCPCS: 76770; 74018

== ENCOUNTER → 2020-10-24 08:54 | Outpatient (BNVA) | payer MEDICARE, MEDICAID, SELFPAY | PROVIDERS: PCP Family Medicine; Referring Provider Family Medicine; Visit Provider Urology | DX: N20.0 Calculus of kidney (principal) | CPT/HCPCS: 99443 ==

== ENCOUNTER → 2021-01-22 13:02 | Outpatient (BNVA) | payer MEDICARE, MEDICAID, SELFPAY | PROVIDERS: PCP Family Medicine; Referring Provider Family Medicine; Visit Provider Internal Medicine Cardiovascular Disease | DX: I48.0 Paroxysmal atrial fibrillation (principal); Z79.01 Long term (current) use of anticoagulants | CPT/HCPCS: 99213 ==

== ENCOUNTER → 2021-03-13 07:52 | Outpatient (BNVA) | payer MEDICARE, MEDICAID, SELFPAY | PROVIDERS: PCP Family Medicine; Referring Provider Family Medicine; Visit Provider Urology | DX: N39.0 Urinary tract infection, site not specified (principal) | CPT/HCPCS: 99443 ==

== ENCOUNTER 2021-03-16 14:45 | Outpatient (REF) | payer MEDICARE, MEDICAID, SELFPAY ==
[2021-03-16 17:11] LABS: Bilirubin Negative (Negative); Blood Negative (Negative); Clarity Sl Cloudy (Clear); Glucose Negative (Negative); Ketones Negative (Negative); Leukocyte Esterase Trace (Negative); Nitrite Negative (Negative); Specific Gravity >= 1.030 (1.005-1.025); Urobilinogen 0.2 EU/dL (Up TO 0.2); pH 5.5 (5-8)
[2021-03-16 17:18] LABS: Epithelial Cells Few HPF (Negative); RBC Negative HPF (0-2)
[2021-03-16 17:19] LABS: Bacteria Few HPF (Negative); C & S Indicated? C&S Done As Ordered; Casts Negative LPF (Negative); Crystals Many Amorphous HPF (Negative); Mucus Trace (Negative)
== END 2021-03-16 14:46 | disposition home or self-care (01) ==
LOC: LBN 14:45
PROVIDERS: PCP Family Medicine; Visit Provider Urology
DX: N39.0 Urinary tract infection, site not specified (principal)
CPT/HCPCS: 81003; 81015; 87086

== ENCOUNTER 2021-05-01 02:02 | Outpatient (CLI) | payer MEDICARE, MEDICAID, SELFPAY ==
--- NOTE | 2021-05-01 06:30 | DI.US_ITS ---
Exam(s) US RENAL EXAM: US RENAL CLINICAL HISTORY: monitor known stone,rt nephrolithiasis,n20.0 TECHNIQUE: Ultrasound of both kidneys performed using standard protocol. COMPARISON: CT CT RENAL COLIC WO from 09/20/2020 US US RENAL from 10/15/2020 FINDINGS: RIGHT KIDNEY: Measures 9 cm in length. No cysts evident. Normal cortical thickness and corticomedullary differentia tion .No solid masses No intrarenal calculi nor hydronephrosis. LEFT KIDNEY: Measures 10 cm in length. No cysts evident. Normal cortical thickness and corticomedullary different iaion. No solids masses. No intrarenal calculi nor hydonephrosis. URINARY BLADDER: Apparently not prepped; therefore not studied. IMPRESSION: 1. No significant ultrasound findings in the kidneys. 2. Previously present intrarenal calculi in the right kidney and ipsilateral hydronephrosis and bobby nephric fluid seen on CT scan 09/20/2020 are not seen on today's ultrasound examination. DATA REPOSITORY:
--- NOTE | 2021-05-01 09:14 | DI.RAD_ITS ---
Exam(s) XR ABDOMEN FLAT PLATE EXAM: XR ABDOMEN FLAT PLATE CLINICAL HISTORY: monitor known stones,rt nephrolithiasis,n20.0. TECHNIQUE: 2D digital imaging was performed. COMPARISON: CR XR ABDOMEN FLAT PLATE from 10/15/2020 FINDINGS: AP supine view of the abdomen reveals a nonspecific bowel gas pattern in the supine position. Air an d fecal material is noted in the nondistended rectum. Phleboliths are noted in both sides of the pel vis. Degenerative scoliosis and multilevel degenerative disc disease in the mid lumbar spine noted. No calcifications seen over the kidneys nor along course of the ureters. No osseous lesions evident . Visualized lung bases are clear. IMPRESSION: Nonspecific bowel gas pattern in the supine position. Degenerative disc disease in the lumbar spine evident. Degenerative scoliosis convex right DATA REPOSITORY: RADIATION DOSE DELIVERED:
== END 2021-05-01 02:22 ==
PROVIDERS: PCP Family Medicine; Visit Provider Urology
DX: N20.0 Calculus of kidney (principal); M51.36 Other intervertebral disc degeneration, lumbar region
CPT/HCPCS: 76770; 74018

== ENCOUNTER → 2021-05-11 07:43 | Outpatient (BNVA) | payer MEDICARE, MEDICAID, SELFPAY | PROVIDERS: PCP Family Medicine; Referring Provider Family Medicine; Visit Provider Urology | DX: N20.0 Calculus of kidney (principal); N39.0 Urinary tract infection, site not specified | CPT/HCPCS: 99213; 99443 ==

== ENCOUNTER 2021-06-24 13:46 | Outpatient (REF) | payer MEDICARE, MEDICAID, SELFPAY ==
[2021-06-24 22:18] LABS: HCT 44.7 % (36.0-46.0); HGB 14.4 g/dL (11.2-15.7); MCH 32.6 pg (27.0-33.0); MCHC 32.2 % (32.0-36.0); MCV 101 fL (80-95); MPV 12.8 fL (8.0-11.0); Platelet Count 209 10^3/uL (130-400); RBC 4.42 10^6/uL (3.93-5.22); RDW 13.3 % (11.7-14.6); RDW-SD 50.2 fL; WBC 5.04 10^3/uL (4.4-10.8)
[2021-06-24 22:36] LABS: Hemoglobin A1C 5.8 % (<5.7)
[2021-06-24 22:46] LABS: ALT 24 U/L (14-59); AST 23 U/L (15-37); Albumin 3.9 g/dL (3.4-5.0); Alkaline Phosphatase 132 U/L (46-116); Anion Gap 9.7 mmol/L (3-11); BUN 14 mg/dL (7-18); Bilirubin, Total 0.4 mg/dL (0.2-1.0); CO2 26.3 mmol/L (21.0-32.0); CREATININE 0.7 mg/dL (0.55-1.02); Calcium 8.8 mg/dL (8.5-10.1); Chloride 105 mmol/L (98-107); Glucose 115 mg/dL (74-106); Potassium 4.6 mmol/L (3.5-5.1); Sodium 141 mmol/L (136-145); TSH (W/Ref FT4) 5.36 uIU/mL (0.36-3.74)
[2021-06-24 23:16] LABS: FREE T4 1.13 ng/dL (0.76-1.46)
[2021-06-26 11:14] LABS: Hepatitis C Ab w Rflx HCV PCR Negative (Negative)
== END 2021-06-24 13:47 | disposition home or self-care (01) ==
LOC: NCHCN 13:46
PROVIDERS: PCP Family Medicine; Visit Provider Family Medicine
DX: I10 Essential (primary) hypertension (principal); R73.03 Prediabetes; E03.9 Hypothyroidism, unspecified; Z11.59 Encounter for screening for other viral diseases
CPT/HCPCS: 80053; 85027; 86803; 83036; 84439; 84443

== ENCOUNTER 2021-06-25 02:58 | Observation (INO) | payer MEDICARE, MEDICAID, SELFPAY ==
[2021-06-25] VITALS (41 sets, daily range): BP systolic 113–169; BP diastolic 50–123; PULSE 61–83; RESP 9–21; TEMP 35.9–36.5; O2SAT 93–96
--- NOTE | 2021-06-25 03:00 | RT.EKG_ITS ---
APPROVED REPORT Exam: Resting ECG Reason for Exam: chest pain Patient Location: E HR:69 bpm ECG Measurements Heart Rate 69 AXIS MN 242 P 36 QRSd 90 QRS -7 QT 385 T 35 QTc 414 Conclusion Sinus rhythm...normal P axis, V-rate 60- 99 Prolonged MN interval...MN >220, V-rate 50- 90
--- NOTE | 2021-06-25 03:30 | DI.RAD_ITS ---
Exam(s) XR PORTABLE CHEST AP EXAM: XR PORTABLE CHEST AP CLINICAL HISTORY: chest pain. TECHNIQUE: 2D digital imaging was performed. COMPARISON: CR,XR XR PORTABLE CHEST AP from 05/18/2020 FINDINGS: LUNGS: Clear. No pleural abnormality seen. HEART: Normal. MEDIASTINUM: Normal. OTHER FINDINGS: None. IMPRESSION: No acute pulmonary findings. DATA REPOSITORY: RADIATION DOSE DELIVERED: Total DLP
[2021-06-25 03:33] LABS: Abs Immature Grans 0.07 10^3/uL (0.0-0.06); Absolute Basophil Count 0.01 10^3/uL (0.0-0.2); Absolute Eosinophil Count 0.03 10^3/uL (0.0-0.7); Absolute Monocyte Count 0.51 10^3/uL (0.1-0.8); Absolute Neutrophil Count 3.02 10^3/uL (1.2-6.7); Basophils % 0.2; Eosinophils % 0.6; HCT 41.9 % (36.0-46.0); HGB 13.6 g/dL (11.2-15.7); Immature Grans % 1.4; Lymphocytes % 29.2; MCH 33.2 pg (27.0-33.0); MCHC 32.5 % (32.0-36.0); MCV 102 fL (80-95); MPV 11.5 fL (8.0-11.0); Monocytes % 9.9; Neutrophils % 58.7; Platelet Count 195 10^3/uL (130-400); RDW 13.3 % (11.7-14.6); RDW-SD 50.5 fL; WBC 5.14 10^3/uL (4.4-10.8)
[2021-06-25 03:49] LABS: ALT 19 U/L (14-59); AST 21 U/L (15-37); Albumin 3.4 g/dL (3.4-5.0); Alkaline Phosphatase 119 U/L (46-116); Anion Gap 6.5 mmol/L (3-11); BUN 14 mg/dL (7-18); Bilirubin, Total 0.4 mg/dL (0.2-1.0); CO2 25.5 mmol/L (21.0-32.0); CREATININE 0.8 mg/dL (0.55-1.02); Calcium 8.6 mg/dL (8.5-10.1); Chloride 108 mmol/L (98-107); Glucose 108 mg/dL (74-106); Potassium 3.9 mmol/L (3.5-5.1); Sodium 140 mmol/L (136-145); Total Protein 6.9 g/dL (6.4-8.2); Troponin I < 50 ng/L (<or=60)
--- NOTE | 2021-06-25 03:54 | ED.GENADUL_ITS ---
Discharge Plan Disposition Condition: Stable Discharge Details Chief Complaint: Chest Pain Admit Date/Time: 06/25/21 05:03 Admit Provider: Quirino Bernard Attending Provider: Quirino Bernard Primary Care Provider: Lillian Huggins ED Provider: Diego Shields Discharge Instructions Activity:: Activity as Tolerated Equipment/Supplies:: No Equipment Needed Diet:: As Tolerated Discharge Orders Discharge Orders: Discharge Order (Routine); Ordered 06/25/21 Ordered By: Loan Torres Discharge Data Discharge Date/Time-TO BE ENTERED AT DEPARTURE: 06/25/21 12:46 Medical Decision Making 400 --75-year-old female with history of atrial fibrillation on Eliquis, here with waxing waning chest pain that started yesterday at 6:30 PM. Patient is hypertensive. She is saturating well in no respiratory distress and has no shortness of breath. Consider ACS. EKG was reviewed interpreted by me: Please see report, sinus rhythm with first-degree heart block, ND interval 242, no STEMI. Initial troponin negative. Patient currently has 4 out of 10 chest discomfort. I recommended nitroglycerin sublingual and patient provided informed refusal at this time. She would prefer to monitor symptoms and await results of diagnostic testing. cxr reviewed and interpreted by me: no acute cardiopulm disease Pain is localized in chest and back. Patient remains hypertensive. Plan to obtain CTA chest to assess for dissection. -- CTA reviewed and no dissection. HEART score moderate. Plan to hospitalize for continued rule out ACS. Medical Records Medical records reviewed: Yes I reviewed the patient's medical records. Medical records narrative: echo 07/11: Conclusion Normal left ventricular wall thickness and chamber size. Estimated ejection fraction is 60%. There are no segmental wall motion abnormalities Normal right ventricular size and systolic function Both atria are normal in size Sclerotic trileaflet aortic valve with mild regurgitation Mild mitral annular calcification. Mild mitral regurgitation Normal tricuspid valve with mild regurgitation Trace pulmonic regurgitation HPI General Mode of arrival: ambulatory . Date/Time Provider Initiated Documentation: 06/25/21 03:06 . Limitations to Documentation: no limitations . Information obtained by: patient . HPI Narrative: 75-year-old female with history of atrial fibrillation and SVT, on Eliquis, TIA in the past, also note of elevated troponin in past medical history, patient denies history of coronary artery disease, presents tonight with chief complaint of chest discomfort. Patient notes chest discomfort that feels like pressure, localized to left anterior chest as well as left posterior chest and left neck. Discomfort started around 6:30 PM yesterday and has waxed and waned since onset. Patient states that she did exert herself yesterday more than usual getting to her doctor appointment and notes that symptoms started after this. Related Data Home Medications Medication Instructions Recorded Confirmed multivitamin (Daily Multi-Vitamin) 1 ea PO DAILY 11/23/16 06/25/21 apixaban 5 mg tablet (Eliquis) 5 mg PO BID #60 tab 12/20/16 06/25/21 metoprolol tartrate 100 mg tablet 100 mg PO BID #180 tab-cap 02/16/17 06/25/21 sulfamethoxazole 200 20 ml PO BID 10 Days #400 ml 01/20/21 05/12/21 mg-trimethoprim 40 mg/5 mL oral suspension Previous Rx's Medication Instructions Recorded apixaban 5 mg tablet (Eliquis) 5 mg PO BID #60 tab 12/20/16 metoprolol tartrate 100 mg tablet 100 mg PO BID #180 tab-cap 02/16/17 sulfamethoxazole 200 20 ml PO BID 10 Days #400 ml 01/20/21 mg-trimethoprim 40 mg/5 mL oral suspension Allergies Allergy/AdvReac Type Severity Reaction Status Date / Time amoxicillin [Amoxicillin] AdvReac Mild Topical Verified 06/25/21 03:24 Irritation General Stated Complaint: Chest Pain AURE: 2 Review of Systems All systems reviewed & are unremarkable except as noted in HPI and below Constitutional Constitutional: Denies fever(s) Cardiovascular Cardiovascular: Reports as per HPI, Reports chest pain and Denies dyspnea Respiratory Respiratory: Denies cough and Denies dyspnea PFSH All Active Problems (Updated 06/26/21 @ 00:03 by MITZY CHASE) Right nephrolithiasis (Acute) Hematuria (Acute) Discharge planning issues (Acute) Subclinical hypothyroidism (Acute) Dehydration (Acute) Prediabetes (Chronic) 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) Sensorineural hearing loss, bilateral (Acute 11/27/15) Transient cerebral ischemia (Acute 11/23/16) Atrial fibrillation with RVR (Acute) Elevated troponin (Acute) Recurrent UTI (urinary tract infection) (Acute) Medical History Anxiety Anxiety and depression Ataxia Bilateral hearing loss Bilateral tinnitus Dizziness Edema Elevated TSH HLD (hyperlipidemia) Hypertension Hypoglycemia Obesity Onychomycosis Osteopenia Prediabetes PSVT (paroxysmal supraventricular tachycardia) Recurrent UTI Visual field defect Surgical History No pertinent past surgical history Family History Father Heart disease Mother Hypertension Cancer cholangiocarcinoma Paternal Grandmother Cancer uterine ca Social History Smoking/Tobacco Use Status: Former Tobacco Use Quit Date: 02/21/11 Tobacco: How many years used: 45 Smoking risk assessment performed?: Yes Alcohol Intake: never Drug use: Never Substance use type: does not use What type of physical activity do you participate in: none and sedentary lifestyle Do you feel safe at home: Yes Do you feel safe in your relationship?: Yes Exam Const General: cooperative and no acute distress HENMT Mouth: moist mucous membranes Eyes Conjunctivae: normal conjunctivae Sclera: normal sclerae Neck Neck: trachea midline and supple Resp Auscultation: clear to auscultation bilaterally, no rales, no rhonchi and no wheezes Cardio Rate: regular rate and not tachycardic Rhythm: regular rhythm GI Palpation: soft, not firm, no guarding, no masses, not rigid and nontender Skin General skin exam: no rashes or lesions noted Neuro General: patient alert, patient awake, patient oriented x3 and tone normal Extrem General: no calf tenderness and no edema Psych Appearance: grossly normal Mental Status: mental status grossly normal Speech and Movement: speech and movement normal Course Vital Signs Vital signs: Vital Signs Pulse 83 06/25/21 03:01 Respiratory Rate 12 06/25/21 03:01 Blood Pressure 158/67 H 06/25/21 03:01 Pulse Oximetry 96 06/25/21 03:01 Pulse 83 06/25/21 03:01 Respiratory Rate 18 06/25/21 03:10 Respiratory Effort Non-Labored 06/25/21 03:10 Respiratory Depth Normal 06/25/21 03:10 Respiratory Pattern Normal 06/25/21 03:10 Blood Pressure 158/67 H 06/25/21 03:01 Blood Pressure Position Sitting 06/25/21 03:01 Pulse Oximetry 96 06/25/21 03:01 Oxygen Delivery Method Room Air 06/25/21 03:01 Oxygen Flow Rate 0 06/25/21 03:01 Lab/Test Results Lab/Test Results: Laboratory Tests Range/Units 06/25/21 06/25/21 03:26 03:26 WBC (4.4-10.8) 10^3/uL 5.14 RBC (3.93-5.22) 10^6/uL 4.10 Hgb (11.2-15.7) g/dL 13.6 Hct (36.0-46.0) % 41.9 MCV (80-95) fL 102 H MCH (27.0-33.0) pg 33.2 H MCHC (32.0-36.0) % 32.5 RDW (11.7-14.6) % 13.3 Plt Count (130-400) 10^3/uL 195 MPV (8.0-11.0) fL 11.5 H Immature Gran % 1.4 Neutrophils % 58.7 Lymphocytes % 29.2 Monocytes % 9.9 Eosinophils % 0.6 Basophils % 0.2 Nucleated RBC % (0.0-0.3) % 0.0 Absolute Neutrophils (1.2-6.7) 10^3/uL 3.02 Absolute Lymphocytes (1.2-3.4) 10^3/uL 1.50 Absolute Monocytes (0.1-0.8) 10^3/uL 0.51 Absolute Eosinophils (0.0-0.7) 10^3/uL 0.03 Absolute Basophils (0.0-0.2) 10^3/uL 0.01 Sodium (136-145) mmol/L 140 Potassium (3.5-5.1) mmol/L 3.9 Chloride (98-107) mmol/L 108 H Carbon Dioxide (21.0-32.0) mmol/L 25.5 Anion Gap (3-11) mmol/L 6.5 BUN (7-18) mg/dL 14 Creatinine (0.55-1.02) mg/dL 0.8 Estimated GFR/1.73 m2 (mL/min/1.73m2) >= 60.00 Glucose (74-106) mg/dL 108 H Calcium (8.5-10.1) mg/dL 8.6 Total Bilirubin (0.2-1.0) mg/dL 0.4 AST (15-37) U/L 21 ALT (14-59) U/L 19 Alkaline Phosphatase (46-116) U/L 119 H Troponin I (<or=60) ng/L < 50 Total Protein (6.4-8.2) g/dL 6.9 Albumin (3.4-5.0) g/dL 3.4
--- NOTE | 2021-06-25 04:00 | DI.CT_ITS ---
Exam(s) CT THORAX ABDOMEN CTA EXAM: CT THORAX ABDOMEN CTA TECHNIQUE: CT angiography of the chest, abdomen and pelvis was performed with bolus infusion of 100 cc of Omnipaque 350. Axial CT angiography was performed with multi-slice acquisition and multi-planar and/or 3D reconstruc tions. COMPARISON: CT CT RENAL COLIC WO from 09/20/2020 FINDINGS: The lungs are clear. No pleural effusion. No evidence of pulmonary embolic disease. No thoracic aort ic dissection or aneurysm. Major branches of the thoracic aorta appear normal. No pleural effusion. No mediastinal or hilar adenopathy. Tracheobronchial tree appears intact. Multiple low-attenuation hepatic lesions noted with attenuation consistent with cysts, these appear t o been present on prior examination of August 2020... Gallbladder and bile ducts are CT normal. Pancre as is unremarkable. Spleen is unremarkable. There are nonobstructing right renal calculi, the largest measuring roughly 3 millimeters in diameter in the lower pole of the kidney. No abdominal aortic aneurysm or dissection. Major branches of the abdominal aorta appear normal. No a bdominal adenopathy No significant abdominal wall hernia in the region visualized. IMPRESSION: No evidence of acute vascular abnormality of the chest, abdomen or pelvis. Nonobstructing right jordan l calculi noted.. RADIATION DOSE DELIVERED: 768.52mGy.cm Total DLP 768.52mGy.cm Total DLP !Error CTDIvol DATA REPOSITORY: All CT scans at this facility are submitted to the National Radiology Data Registry (NRDR) Dose Index Registry (DIR) with the [employer] ([employer]). RADIATION OPTIMIZATION: All CT scans at this facility use at least one of these dose optimization te chniques: automated exposure control; mA and/or kV adjustment per patient size (includes targeted exa ms where dose is matched to clinical indication); or iterative reconstruction.
[2021-06-25] MEDS: Omnipaque 350 MG/ML 100 ML BTL IJ (04:47)
--- NOTE | 2021-06-25 05:24 | DI.VRAD_ITS ---
PROCEDURE INFORMATION: Exam: CTA Chest With Contrast Exam date and time: 06/25/2021 4:38 AM Age: 75 years old Clinical indication: Other: Hypertensive; Chest wall pain; Abdominal pain; Other: Radiating to back; Additional info: Chest pain radiating to back, hypertensive TECHNIQUE: Imaging protocol: Computed tomographic angiography of the chest with contrast. 3D rendering (Not supervised by radiologist): MIP and/or 3D reconstructed images were created by the technologist. Radiation optimization: All CT scans at this facility use at least one of these dose optimization techniques: automated exposure control; mA and/or kV adjustment per patient size (includes targeted exams where dose is matched to clinical indication); or iterative reconstruction. Contrast material: OMNI 350; Contrast volume: 100 ml; Contrast route: INTRAVENOUS (IV); COMPARISON: 1. CT RENAL COLIC WO 09/20/2020 11:47 AM 2. CR XR PORTABLE CHEST AP 06/25/2021 3:40 AM FINDINGS: Pulmonary arteries: Normal. No pulmonary emboli. Aorta: Unremarkable. No aortic aneurysm. No aortic dissection. Lungs: Unremarkable. No consolidation. No masses. Pleural spaces: Unremarkable. No pneumothorax. No pleural effusion. Heart: Unremarkable. No cardiomegaly. No pericardial effusion. Lymph nodes: Unremarkable. No enlarged lymph nodes. Bones/joints: Unremarkable. No acute fracture. Soft tissues: Unremarkable. IMPRESSION: No evidence of thoracic aortic aneurysm or dissection. No visualized pulmonary embolus. PROCEDURE INFORMATION: Exam: CT Angiography Abdomen With Contrast Exam date and time: 06/25/2021 4:38 AM Age: 75 years old Clinical indication: Other: Hypertensive; Chest wall pain; Abdominal pain; Other: Radiating to back; Additional info: Chest pain radiating to back, hypertensive TECHNIQUE: Imaging protocol: Computed tomographic angiography images of the abdomen with intravenous contrast material. 3D rendering (Not supervised by radiologist): MIP and/or 3D reconstructed images were created by the technologist. Radiation optimization: All CT scans at this facility use at least one of these dose optimization techniques: automated exposure control; mA and/or kV adjustment per patient size (includes targeted exams where dose is matched to clinical indication); or iterative reconstruction. Contrast material: OMNI 350; Contrast volume: 100 ml; Contrast route: INTRAVENOUS (IV); COMPARISON: 1. CT RENAL COLIC WO 09/20/2020 11:47 AM 2. CR XR PORTABLE CHEST AP 06/25/2021 3:40 AM FINDINGS: Aorta: No aortic aneurysm. No aortic dissection. Celiac trunk and mesenteric arteries: No occlusion or significant stenosis. Renal arteries: No occlusion or significant stenosis. Liver: Multiple simple hepatic cysts. The liver is otherwise unremarkable. Gallbladder and bile ducts: Normal. No calcified stones. No ductal dilation. Pancreas: Normal. No ductal dilation. Spleen: Normal. No splenomegaly. Adrenals: Normal. No mass. Kidneys and ureters: Nonobstructive nephrolithiasis on the right. Stomach and bowel: Unremarkable. No obstruction. No mucosal thickening. Lymph nodes: Unremarkable. No enlarged lymph nodes. Intraperitoneal space: Unremarkable. No free air. No significant fluid collection. Bones/joints: Dextroscoliosis and degenerative changes within the visualized spine. Soft tissues: Unremarkable. IMPRESSION: 1. No evidence of abdominal aortic aneurysm or dissection. 2. Nonobstructive nephrolithiasis on the right. Dictated and Authenticated by: Anders Chiu MD. Ordering:ROSITA Cortez MD
--- NOTE | 2021-06-25 05:29 | DI.VRAD_ITS ---
PROCEDURE INFORMATION: Exam: XR Chest Exam date and time: 06/25/2021 3:40 AM Age: 75 years old Clinical indication: Pain; Chest pressure; Additional info: Chest pain TECHNIQUE: Imaging protocol: XR of the chest. Views: 1 view. COMPARISON: XR PORTABLE CHEST AP 05/18/2020 12:39 AM FINDINGS: Lungs: Unremarkable. No consolidation. Pleural spaces: Unremarkable. No pleural effusion. No pneumothorax. Heart/Mediastinum: Unremarkable. No cardiomegaly. Bones/joints: Unremarkable. IMPRESSION: No acute findings. Dictated and Authenticated by: Anders Chiu MD. Ordering:ROSITA Cortez MD
[2021-06-25 06:48] LABS: Source Nasal/Nares
--- NOTE | 2021-06-25 07:05 | NUR.NOTE ---
Nursing Note: Pt admitted to floor at 0644. Pt assisted to bathroom VS taken and tele applied. Report given to DIMITRY.
--- NOTE | 2021-06-25 07:07 | HPE_ITS ---
Date of service: 06/25/21 Time of Service: 07:07 Assessment and Plan Assessment and plan (1) Atrial fibrillation: Status: Chronic Assessment and plan: Will continue home metoprolol and Eliquis (2) Chest pain: Status: Acute Assessment and plan: This is a 75 yo with A.fib on metoprolol and Eliquis who is admitted for chest pain. Her pain is somewhat atypical and currently pleuritic left lateral pain. She has negative troponin and a non concerning EKG. Given the history of the prior chest pain last night it may be helpful to get a stress test but the patient is unsure as to whether she wants to do this right now. She also wonders about having Dr. Oliva weigh in. - NPO for now - consider MPI stress - patient still unsure if she wants this at this time or not - telemetry - EKG not concerning History of Present Illness Narrative: This is a 75 yo woman with a history of A. fib on metoprolol and Eliquis who is being admitted for observation for chest pain. The chest pain started at 6:30pm yesterday that felt more like a pressure or thumb pressing into the chest. She had discomfort that radiated up the left side of her neck and back to the left shoulder blade. She did not have associated nausea, abdominal pain for dyspnea. She did not have a concerning EKG in the ED for ACS and her first troponin was negative and a CT angio found no dissection or other concerning finding. She refused nitro in the ED for her pain. Currently her pain is a 2/10 and if still left sided chest but is purely pleuritic. In discussing the potential for a stress test she became very concerned about doing this as it increases your heart rate. She tells me another doctor recommended this in the past as an outpatient but she refused for the same reason. She is wondering about whether Dr. Oliva can assess whether she n eeds this test or not. She is not having any nausea, abdominal pain or shortness of breath at the moment. 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) Sensorineural hearing loss, bilateral (Acute 11/27/15) Transient cerebral ischemia (Acute 11/23/16) Atrial fibrillation with RVR (Acute) Elevated troponin (Acute) Atrial fibrillation (Chronic) Recurrent UTI (urinary tract infection) (Acute) Medical History Anxiety Anxiety and depression Ataxia Bilateral hearing loss Bilateral tinnitus Dizziness Edema Elevated TSH HLD (hyperlipidemia) Hypertension Hypoglycemia Obesity Onychomycosis Osteopenia Prediabetes PSVT (paroxysmal supraventricular tachycardia) Recurrent UTI Visual field defect Surgical History No pertinent past surgical history Family History Father Heart disease Mother Hypertension Cancer cholangiocarcinoma Paternal Grandmother Cancer uterine ca Social History Smoking/Tobacco Use Status: Former Tobacco Use Quit Date: 02/21/11 Tobacco: How many years used: 45 Smoking risk assessment performed?: Yes Alcohol Intake: never Drug use: Never Substance use type: does not use What type of physical activity do you participate in: none and sedentary lifestyle Do you feel safe at home: Yes Do you feel safe in your relationship?: Yes Meds Allergies and Home Medications Allergies Allergy/AdvReac Type Severity Reaction Status Date / Time amoxicillin [Amoxicillin] AdvReac Mild Topical Verified 06/25/21 03:24 Irritation Home Medications Medication Instructions Recorded Confirmed Type multivitamin (Daily Multi-Vitamin) 1 ea PO DAILY 11/23/16 06/25/21 History apixaban 5 mg tablet (Eliquis) 5 mg PO BID #60 tab 12/20/16 06/25/21 Rx metoprolol tartrate 100 mg tablet 100 mg PO BID #180 tab-cap 02/16/17 06/25/21 Rx sulfamethoxazole 200 20 ml PO BID 10 Days #400 ml 01/20/21 05/12/21 Rx mg-trimethoprim 40 mg/5 mL oral suspension Exam Narrative Exam Narrative: Gen: NAD, normal respiratory effort, obese HENT: PERRL, nasal turbinates normal without erythema or inflammation, moist oral mucosa, Mallampati 2, No LAD or JVD Chest: No respiratory distress, normal appearance of chest, clear to a uscultation bilaterally, no crackles or wheezes, normal inspiratory effort Heart: regular rate and rhythym, no murmurs, rubs or gallops Abdomen: Non-distended, soft, non tender Extremities: No clubbing, edema, cyanosis, rashes Neuro: AAOx3 , non focal Psych: cooperative, appropriate mental affect Results Imaging Abdomen CT scan report/results: report reviewed and image reviewed CT scan - chest: report reviewed and image reviewed EKG: report reviewed and image reviewed Labs Result diagrams: 06/25/21 03:26 06/25/21 03:26 Labs: Laboratory Results - last 24 hr 06/25/21 06/25/21 06/25/21 03:26 03:26 06:36 WBC 5.14 RBC 4.10 Hgb 13.6 Hct 41.9 MCV 102 H MCH 33.2 H MCHC 32.5 RDW 13.3 Plt Count 195 MPV 11.5 H Immature Gran % 1.4 Neutrophils % 58.7 Lymphocytes % 29.2 Monocytes % 9.9 Eosinophils % 0.6 Basophils % 0.2 Nucleated RBC % 0.0 Absolute Neutrophils 3.02 Absolute Lymphocytes 1.50 Absolute Monocytes 0.51 Absolute Eosinophils 0.03 Absolute Basophils 0.01 Sodium 140 Potassium 3.9 Chloride 108 H Carbon Dioxide 25.5 Anion Gap 6.5 BUN 14 Creatinine 0.8 Estimated GFR/1.73 m2 >= 60.00 Glucose 108 H Calcium 8.6 Total Bilirubin 0.4 AST 21 ALT 19 Alkaline Phosphatase 119 H Troponin I < 50 Total Protein 6.9 Albumin 3.4 COVID-19 Source Nasal/Nares Last Vital Signs Temp 36.5 C 06/25/21 06:34 Pulse 61 06/25/21 06:34 Resp 10 L 06/25/21 06:34 BP 129/77 06/25/21 06:34 Pulse Ox 94 06/25/21 06:34
[2021-06-25 08:11] LABS: Troponin I < 50 ng/L (<or=60)
--- NOTE | 2021-06-25 08:47 | PDOC.CMIN ---
- If Service Date Differs Date of service: 06/25/21 Time of Service: 08:47 Care Management Initial Assess REASON FOR HOSPITALIZATION:: Acute Chest Pain PAST MEDICAL HISTORY/PAST SURGICAL HISTORY:: Medical History . Anxiety. Anxiety and depression. Ataxia. Bilateral hearing loss. Bilateral tinnitus. Dizziness. Edema. Elevated TSH. HLD (hyperlipidemia). Hypertension. Hypoglycemia. Obesity. Onychomycosis. Osteopenia. Prediabetes. PSVT (paroxysmal supraventricular tachycardia). Recurrent UTI. Visual field defect. Surgical History . No pertinent past surgical history PREVIOUS FUNCTIONAL STATUS/SOCIAL/FAMILY SUPPORTS:: Bárbara resides alone in [facility]. Pt states that she does not have any family locally, and that she has a few neighbors, however they are older. Her friend, Mai is supportive. Bárbara depends on [facility] for transportation. She is independent at baseline. CURRENT FUNCTIONAL STATUS:: Bárbara is advocating for discharge and outpatient follow up per MD. ADVANCE DIRECTIVES:: None on file. Has patient been provided with info about the portal/API?: No Did the patient sign up for the portal?: No CODE STATUS:: Full Code INSURANCE COVERAGE / FINANCIAL ISSUES:: Medicare, AARP, Medicaid PRIMARY CARE PHYSICIAN:: Lillian Huggins POTENTIAL DISCHARGE NEEDS:: F/U appointment with PCP PATIENT/FAMILY EDUCATION NEEDS:: Review DC instructions, any limitations, and ongoing DC planning discussion. ANTICIPATED BARRIERS TO DISCHARGE:: None identified at this time. TRANSPORTATION:: Via private vehicle with [facility] or with a friend. PLAN:: Anticipate Bárbara will discharge home when ready per MD. She will follow up with her PCP and transport via private vehicle with her daughter.
--- NOTE | 2021-06-25 09:13 | W.CARDCONSUL ---
Date of service: 06/25/21 Time of Service: 09:13 Assessment and Plan Assessment and plan (1) Chest pain: Status: Acute Assessment and plan: Patient's chest pain has been prolonged and is pleuritic. There is no evidence of myocardial necrosis. Her EKG is unremarkable. Overall I have no specific concern that this is cardiac in nature and I would not recommend stress testing, particularly as the patient is disinclined to proceed I would consider discharge to outpatient follow-up (2) Paroxysmal atrial fibrillation: Status: Acute Assessment and plan: Currently in sinus rhythm, appropriately anticoagulated with Eliquis History of Present Illness History of Present Illness Chief Complaint: Left-sided chest and shoulder pain Narrative: This is a 75-year-old woman who came to the hospital because of discomfort in her left upper chest and shoulder. This began at rest approximately 6 PM. She described it as feeling as though someone was pushing with the thumb. Initially it was lower but then moved up to the top of her left shoulder and toward her left neck. It was worse with movement and also if she took a deep breath. She became concerned. Because of persistent symptoms she came here to the emergency room where initial evaluation was unrevealing. 2 troponins have been negative. Her EKG is normal. She still has very mild residual discomfort but only if she takes a very deep breath. The pain is not reproducible on palpation Patient has a history of paroxysmal atrial fibrillation, hypertension and dyslipidemia. She does not have any known history of coronary artery disease. 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) Sensorineural hearing loss, bilateral (Acute 11/27/15) Transient cerebral ischemia (Acute 11/23/16) Atrial fibrillation with RVR (Acute) Elevated troponin (Acute) Atrial fibrillation (Chronic) Recurrent UTI (urinary tract infection) (Acute) Medical History Anxiety Anxiety and depression Ataxia Bilateral hearing loss Bilateral tinnitus Dizziness Edema Elevated TSH HLD (hyperlipidemia) Hypertension Hypoglycemia Obesity Onychomycosis Osteopenia Prediabetes PSVT (paroxysmal supraventricular tachycardia) Recurrent UTI Visual field defect Surgical History No pertinent past surgical history Family History Father Heart disease Mother Hypertension Cancer cholangiocarcinoma Paternal Grandmother Cancer uterine ca Social History Smoking/Tobacco Use Status: Former Tobacco Use Quit Date: 02/21/11 Tobacco: How many years used: 45 Smoking risk assessment performed?: Yes Alcohol Intake: never Drug use: Never Substance use type: does not use What type of physical activity do you participate in: none and sedentary lifestyle Do you feel safe at home: Yes Do you feel safe in your relationship?: Yes Exam Const Other: Elderly overweight no acute distress Neck Other: No neck vein distention no V waves normal carotid upstrokes Resp Auscultation: clear to auscultation bilaterally Cardio Other: Heart is regular without murmur or gallop Extrem Other: Trace edema Psych Other: Mildly anxious Results Last Vital Signs Temp 36.4 C L 06/25/21 07:49 Pulse 63 06/25/21 07:49 Resp 17 06/25/21 07:49 BP 120/79 06/25/21 07:49 Pulse Ox 95 06/25/21 07:49 Labs Result diagrams: 06/25/21 03:26 06/25/21 03:26 Labs: Laboratory Results - last 24 hr 06/25/21 06/25/21 06/25/21 03:26 03:26 06:36 WBC 5.14 RBC 4.10 Hgb 13.6 Hct 41.9 MCV 102 H MCH 33.2 H MCHC 32.5 RDW 13.3 Plt Count 195 MPV 11.5 H Immature Gran % 1.4 Neutrophils % 58.7 Lymphocytes % 29.2 Monocytes % 9.9 Eosinophils % 0.6 Basophils % 0.2 Nucleated RBC % 0.0 Absolute Neutrophils 3.02 Absolute Lymphocytes 1.50 Absolute Monocytes 0.51 Absolute Eosinophils 0.03 Absolute Basophils 0.01 Sodium 140 Potassium 3.9 Chloride 108 H Carbon Dioxide 25.5 Anion Gap 6.5 BUN 14 Creatinine 0.8 Estimated GFR/1.73 m2 >= 60.00 Glucose 108 H Calcium 8.6 Total Bilirubin 0.4 AST 21 ALT 19 Alkaline Phosphatase 119 H Troponin I < 50 Total Protein 6.9 Albumin 3.4 COVID-19 Source Nasal/Nares 06/25/21 07:45 WBC RBC Hgb Hct MCV MCH MCHC RDW Plt Count MPV Immature Gran % Neutrophils % Lymphocytes % Monocytes % Eosinophils % Basophils % Nucleated RBC % Absolute Neutrophils Absolute Lymphocytes Absolute Monocytes Absolute Eosinophils Absolute Basophils Sodium Potassium Chloride Carbon Dioxide Anion Gap BUN Creatinine Estimated GFR/1.73 m2 Glucose Calcium Total Bilirubin AST ALT Alkaline Phosphatase Troponin I < 50 Total Protein Albumin COVID-19 Source
--- NOTE | 2021-06-25 09:42 | NUR.NOTE ---
While completing admission assessment, patient stated she did not want to take her morning medication because I brought my pills with me and I just took them at 01:30, I usually take them at noon and midnight. Nursing passed on to provider, will hold medication at this time and await further instructions.
[2021-06-25] MEDS: Metoprolol 50 MG TAB 100 MG PO (11:50)
[2021-06-25] MEDS: Apixaban 5 MG TAB PO (11:50)
[2021-06-25] MEDS: Aspirin 81 MG CHEW PO (11:51)
--- NOTE | 2021-06-25 12:16 | DSE_ITS ---
Date of service: 06/25/21 Time of Service: 12:16 DS: Diagnosis Discharge Diagnosis (1) Chest pain: Status: Acute Asessment and Plan: Resolved (2) Paroxysmal atrial fibrillation: Status: Acute Asessment and Plan: Chronic - denies chest pain and no difficulty breathing Discharge Plan Disposition Patient Disposition: HOME Condition: Stable Discharge Details Reason For Visit: Acute chest pain Admit Date/Time: 06/25/21 05:03 Admit Provider: Quirino Bernard Attending Provider: Quirino Bernard Primary Care Provider: Lillian Huggins Hospital Course Hospital Course: This is a 75-year-old woman who who presented to the ED with complaints of discomfort in her left upper chest and shoulder.? This began at rest approximately 6 PM. She states it felt like she was pushing on her chest with her thumb.? Shc complained that it went from her left shoulder up to her left neck. The pain inceased with movement and when she took a deep breath. ?The pain is not reproduceable. 2 troponins have been negative.? Her EKG is normal, NSR.? She was up in the humphries ambulating without chest pain or SOB. Patient has a history of paroxysmal atrial fibrillation, hypertension and dyslipidemia, no history of coronary artery disease and her previous echocardiogram was unremarkable. She was seen by Dr Oliva. Dr Oliva states she doubts this is cardiac in nature, she does not recommend stress testing, particularly as the patient is disinclined to proceed. She agrees to discharge and out patient follow up. She is discharged to home with instructions to follow up with PCP and cardiology. Home Meds and New Rx's Prescriptions: No Action multivitamin [Daily Multi-Vitamin] 1 EACH tablet 1 ea PO DAILY 0RF metoprolol tartrate 100 MG tablet 100 mg PO BID Qty: 180 0RF sulfamethoxazole-trimethoprim 200-40 mg/5 mL suspension 20 ml PO BID 10 Days Qty: 400 3RF Eliquis 5 MG tablet 5 mg PO BID Qty: 60 3RF Discharge Instructions Instructions: Chest Pain (DC) Additional Instructions: Continue home medications. Referrals: Renetta Oliva MD [ [facility] STAFF PHYSICIAN] - None (1-2 weeks ) Lillian Huggins MD [Primary Care Provider] - None (Follow up with PCP 1-2 weeks) Activity:: Activity as Tolerated Equipment/Supplies:: No Equipment Needed Diet:: As Tolerated Discharge Orders Discharge Orders: Discharge Order (Routine); Ordered 06/25/21 Ordered By: Loan Torres DS: Summary Time Spent with Patient providing and/or coordinating discharge services: Less than 30 minutes Status at Discharge Functional status at discharge: independent ambulation Overall status at discharge: patient is back to baseline Mental Status: mental status grossly normal Speech and Movement: speech and movement normal Mood: congruent mood Affect: normal affect Exam Narrative Exam Narrative: Gen: NAD, normal respiratory effort, obese HENT: PERRL, nasal turbinates normal without erythema or inflammation, moist oral mucosa, no JVD Chest: No respiratory distress, normal appearance of chest, clear to auscultation bilaterally, no crackles or wheezes, normal inspiratory effort Heart: regular rate and rhythym, no murmurs, rubs or gallops Abdomen: Non-distended, soft, non tender Extremities: No clubbing, edema, cyanosis, rashes Neuro: AAOx3 , non focal Psych: cooperative, appropriate mental affect Const General: cooperative and no acute distress HENMT Mouth: moist mucous membranes Eyes Conjunctivae: normal conjunctivae Sclera: normal sclerae Neck Neck: trachea midline and supple Resp Auscultation: clear to auscultation bilaterally, no rales, no rhonchi and no wheezes Cardio Rate: regular rate and not tachycardic Rhythm: regular rhythm GI Palpation: soft, not firm, no guarding, no masses, not rigid and nontender Skin General skin exam: no rashes or lesions noted Neuro General: patient alert, patient awake, patient oriented x3 and tone normal Extrem General: no calf tenderness and no edema Psych Appearance: grossly normal Mental Status: mental status grossly normal Speech and Movement: speech and movement normal Mood: congruent mood Affect: normal affect DS: Data Vitals/I&O Vitals and I&O: Vital Signs Temperature 35.9 C L 06/25/21 11:10 Temperature Source Tympanic 06/25/21 11:10 Pulse 70 06/25/21 11:10 Pulse Rhythm Regular 06/25/21 09:27 Pulse 69 06/25/21 06:31 Respiratory Rate 17 06/25/21 11:10 Respiratory Effort 06/25/21 09:27 Respiratory Depth Normal 06/25/21 09:27 Respiratory Pattern Normal 06/25/21 09:27 Blood Pressure 113/74 05/05/22 11:10 Blood Pressure Mean 91 06/25/21 06:31 Blood Pressure Position Sitting 06/25/21 03:01 Pulse Oximetry 95 06/25/21 11:10 Oxygen Delivery Method Room Air 06/25/21 11:10 Oxygen Flow Rate 0 06/25/21 11:10 Pain Level 2 06/25/21 11:10 Intake & Output 06/24/21 06/25/21 06/25/21 23:59 11:59 23:59 Output Total 400 / 400 Balance -400 / -400 Weight 90.1 kg Output: Urine 400 / 400 Other: Urine Color Yellow Urine Appearance Clear Urine Odor Normal Voiding Methods Toilet Data Completed and Pending Completed studies during hospitalization [Text1]: CXR - No acute findings. CT- No evidence of acute vascular abnormality of the chest, abdomen or pelvis.? Nonobstructing right renal calculi noted.. Labs on day of discharge: Labs from last 24 hours 06/25/21 06/25/21 06/25/21 07:45 06:36 03:26 WBC 5.14 RBC 4.10 Hgb 13.6 Hct 41.9 MCV 102 H MCH 33.2 H MCHC 32.5 RDW 13.3 Plt Count 195 MPV 11.5 H Immature Gran % 1.4 Neutrophils % 58.7 Lymphocytes % 29.2 Monocytes % 9.9 Eosinophils % 0.6 Basophils % 0.2 Nucleated RBC % 0.0 Absolute Neutrophils 3.02 Absolute Lymphocytes 1.50 Absolute Monocytes 0.51 Absolute Eosinophils 0.03 Absolute Basophils 0.01 Sodium Potassium Chloride Carbon Dioxide Anion Gap BUN Creatinine Estimated GFR/1.73 m2 Glucose Calcium Total Bilirubin AST ALT Alkaline Phosphatase Troponin I < 50 Total Protein Albumin COVID-19 Source Nasal/Nares SARS-CoV-2 (PCR) Pending 06/25/21 03:26 WBC RBC Hgb Hct MCV MCH MCHC RDW Plt Count MPV Immature Gran % Neutrophils % Lymphocytes % Monocytes % Eosinophils % Basophils % Nucleated RBC % Absolute Neutrophils Absolute Lymphocytes Absolute Monocytes Absolute Eosinophils Absolute Basophils Sodium 140 Potassium 3.9 Chloride 108 H Carbon Dioxide 25.5 Anion Gap 6.5 BUN 14 Creatinine 0.8 Estimated GFR/1.73 m2 >= 60.00 Glucose 108 H Calcium 8.6 Total Bilirubin 0.4 AST 21 ALT 19 Alkaline Phosphatase 119 H Troponin I < 50 Total Protein 6.9 Albumin 3.4 COVID-19 Source SARS-CoV-2 (PCR) PFSH All Active Problems Paroxysmal atrial fibrillation (Acute) Chest pain (Acute) Right nephrolithiasis (Acute) Hematuria (Acute) Discharge planning issues (Acute) Subclinical hypothyroidism (Acute) Dehydration (Acute) Prediabetes (Chronic) 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) Sensorineural hearing loss, bilateral (Acute 11/27/15) Transient cerebral ischemia (Acute 11/23/16) Atrial fibrillation with RVR (Acute) Elevated troponin (Acute) Atrial fibrillation (Chronic) Recurrent UTI (urinary tract infection) (Acute) Medical History Anxiety Anxiety and depression Ataxia Bilateral hearing loss Bilateral tinnitus Dizziness Edema Elevated TSH HLD (hyperlipidemia) Hypertension Hypoglycemia Obesity Onychomycosis Osteopenia Prediabetes PSVT (paroxysmal supraventricular tachycardia) Recurrent UTI Visual field defect Surgical History No pertinent past surgical history Family History Father Heart disease Mother Hypertension Cancer cholangiocarcinoma Paternal Grandmother Cancer uterine ca Social History Smoking/Tobacco Use Status: Former Tobacco Use Quit Date: 02/21/11 Tobacco: How many years used: 45 Smoking risk assessment performed?: Yes Alcohol Intake: never Drug use: Never Substance use type: does not use What type of physical activity do you participate in: none and sedentary lifestyle Do you feel safe at home: Yes Do you feel safe in your relationship?: Yes
[2021-06-25 14:10] LABS: COVID-19 PCR Negative (Negative)
== END 2021-06-25 14:28 | disposition home or self-care (01) ==
LOC: ER 05:59 → MS 06:55
PROVIDERS: Admitting Provider Family Medicine; Emergency Provider Student in an Organized Health Care Education/Training Program; PCP Family Medicine; Visit Provider Family Medicine
DX: I48.0 Paroxysmal atrial fibrillation (principal); I10 Essential (primary) hypertension; R07.81 Pleurodynia; E78.5 Hyperlipidemia, unspecified; E03.9 Hypothyroidism, unspecified; I47.1 Supraventricular tachycardia; R73.03 Prediabetes; H90.3 Sensorineural hearing loss, bilateral; Z87.440 Personal history of urinary (tract) infections; Z79.01 Long term (current) use of anticoagulants; Z79.899 Other long term (current) drug therapy; F41.8 Other specified anxiety disorders; R27.0 Ataxia, unspecified; E66.9 Obesity, unspecified; Z68.36 Body mass index [BMI] 36.0-36.9, adult; N20.0 Calculus of kidney; Z87.891 Personal history of nicotine dependence; I44.0 Atrioventricular block, first degree; Z20.822 Contact with and (suspected) exposure to COVID-19
CPT/HCPCS: 36415; 71275; 74175; 80053; 87635; 93005; 99285; U0005; 71045; 84484; 85025; 93010; 99213; 99234; G0378; J3490

== ENCOUNTER → 2021-07-02 13:25 | Outpatient (BNVA) | payer MEDICARE, MEDICAID, SELFPAY | PROVIDERS: PCP Family Medicine; Referring Provider Family Medicine; Visit Provider Internal Medicine Cardiovascular Disease | DX: I48.0 Paroxysmal atrial fibrillation (principal); R07.9 Chest pain, unspecified | CPT/HCPCS: 99213 ==

== ENCOUNTER 2021-07-03 00:53 | Outpatient (CLI) | payer MEDICARE, MEDICAID, SELFPAY ==
--- NOTE | 2021-07-03 | DI.DEXA_ITS ---
Exam(s) XR DEXA BONE DENSITY W/WO RAMON EXAM: XR DEXA BONE DENSITY W/WO RAMON CLINICAL HISTORY: SCREENING FOR OSTEOPOROSIS, BONE DISORDER M85.88 TECHNIQUE: Routine DEXA evaluation of the lumbar spine, hip, or forearm. COMPARISON: Compared to prior DEXA scan of January 2018 FINDINGS: Performed on a HoloShoeboxed unit. Lateral image: None provided Lumbar Spine total T-score: -0.2. Prior 2018 reading was -0.3 Hip total T-score:-1.8. Prior 2018 reading was -1.4. Independent reading at the level of the femoral neck yields at T-score of -2.4. Forearm total T-score: -0.5 IMPRESSION: Bone mineral density measures in the osteopenia range. Fracture risk is moderate. Note: Any spine fracture indicates 5x risk for subsequent spine fracture and 2x risk for subsequent h ip fracture. World Health Organization criteria for BMD interpretation classify patients: Normal...... T- Score at or above -1.0 Osteopenic... T- Score between -1.0 and -2.5 Osteoporosis... T-Score at or below -2.5
== END 2021-07-03 01:13 ==
PROVIDERS: PCP Family Medicine; Visit Provider Family Medicine
DX: M85.88 Other specified disorders of bone density and structure, other site (principal); Z13.820 Encounter for screening for osteoporosis
CPT/HCPCS: 77080

== ENCOUNTER → 2021-08-13 07:42 | Outpatient (BNVA) | payer MEDICARE, MEDICAID, SELFPAY | PROVIDERS: PCP Family Medicine; Referring Provider Family Medicine; Visit Provider Urology | DX: N20.0 Calculus of kidney (principal); N39.0 Urinary tract infection, site not specified | CPT/HCPCS: 99443 ==

== ENCOUNTER 2021-10-08 16:43 | Outpatient (REF) | payer MEDICARE, MEDICAID, SELFPAY ==
[2021-10-08 19:13] LABS: Bilirubin Negative (Negative); Blood Trace-intact (Negative); Clarity Clear (Clear); Glucose Negative (Negative); Ketones Negative (Negative); Leukocyte Esterase Trace (Negative); Nitrite Negative (Negative); Urobilinogen 0.2 EU/dL (Up TO 0.2); pH 5.5 (5-8)
[2021-10-08 19:28] LABS: Bacteria Few HPF (Negative); C & S Indicated? No/Sq. Contamination; Crystals Negative HPF (Negative); Epithelial Cells Many HPF (Negative); Mucus Negative (Negative); Other Cells Rare Yeast (Negative); RBC 0-2 HPF (0-2)
== END 2021-10-08 16:44 | disposition home or self-care (01) ==
LOC: NCHCN 16:43
PROVIDERS: PCP Family Medicine; Visit Provider Family Medicine
DX: N39.0 Urinary tract infection, site not specified (principal)
CPT/HCPCS: 81003; 81015

== ENCOUNTER → 2021-11-02 01:45 | Outpatient (CLI) | payer MEDICARE, MEDICAID, SELFPAY ==
--- NOTE | 2021-11-02 08:45 | DI.US_ITS ---
Exam(s) US RENAL EXAM: US RENAL CLINICAL HISTORY: monitor known stones,RT NEPHROLITHIASIS,N20.0 TECHNIQUE: Ultrasound of both kidneys performed using standard protocol. COMPARISON: US US RENAL from 05/01/[address] THORAX ABDOMEN CTA from 06/25/2021 FINDINGS: RIGHT KIDNEY: Measures 9.3 cm in length. No cysts evident. Normal cortical thickness and corticomedullary different iation .No solid masses No intrarenal calculi nor hydronephrosis. LEFT KIDNEY: Measures 9.5 cm in length. No cysts evident. Normal cortical thickness and corticomedullary differen tiaion. No solids masses. No intrarenal calculi nor hydonephrosis. URINARY BLADDER: Prevoid volume is only 3.9 cc Therefore bladder cannot be accurately assessed IMPRESSION: 1. No significant ultrasound findings in the kidneys. 2. However, please note that CT scan of 06/25/2021 revealed a small 2 millimeter nonobstructive calc ulus in the right kidney at that time. This may be missed on ultrasound. DATA REPOSITORY:
== END ==
PROVIDERS: PCP Family Medicine; Visit Provider Urology
DX: N20.0 Calculus of kidney (principal)
CPT/HCPCS: 76770

== ENCOUNTER → 2021-11-13 07:58 | Outpatient (BNVA) | payer MEDICARE, MEDICAID, SELFPAY | PROVIDERS: PCP Family Medicine; Visit Provider Urology | DX: N20.0 Calculus of kidney (principal); N39.0 Urinary tract infection, site not specified ==

== ENCOUNTER → 2021-11-19 13:04 | Outpatient (BNVA) | payer MEDICARE, MEDICAID, SELFPAY | PROVIDERS: PCP Family Medicine; Referring Provider Family Medicine; Visit Provider Internal Medicine Cardiovascular Disease | DX: I48.91 Unspecified atrial fibrillation (principal) | CPT/HCPCS: 99213 ==

== ENCOUNTER → 2021-11-27 07:27 | Outpatient (BNVA) | payer MEDICARE, MEDICAID, SELFPAY | PROVIDERS: PCP Family Medicine; Referring Provider Family Medicine; Visit Provider Urology | DX: N20.0 Calculus of kidney (principal); N39.0 Urinary tract infection, site not specified | CPT/HCPCS: 99443 ==

== ENCOUNTER 2021-12-11 15:18 | Emergency (ER) | payer MEDICARE, MEDICAID, SELFPAY ==
[2021-12-11] VITALS (22 sets, daily range): BP systolic 118–162; BP diastolic 53–84; PULSE 64–87; RESP 9–22; TEMP 36.8; O2SAT 100
--- NOTE | 2021-12-11 15:15 | RT.EKG_ITS ---
APPROVED REPORT Exam: Resting ECG Reason for Exam: CHEST PAIN Patient Location: E HR:73 bpm ECG Measurements Heart Rate 73 AXIS DE 224 P 73 QRSd 87 QRS -4 QT 377 T 63 QTc 416 Conclusion Sinus rhythm...normal P axis, V-rate 60- 99 Prolonged DE interval...DE >220, V-rate 50- 90 Anteroseptal infarct, old...Q >40mS, V1-V2 Nonspecific T abnormalities, inferior leads...T <-0.10mV, II III aVF
--- NOTE | 2021-12-11 16:15 | W.ED.GENAD ---
Discharge Plan Disposition Patient Disposition: HOME Condition: Stable Discharge Details Clinical Impression: Palpitations Primary Care Provider: Lillian Huggins ED Provider: Quirino Ferguson Home Meds and New Rx's Prescriptions: Continued diphenhydramine HCl [Benadryl] 25 mg capsule 25 mg PO TID PRN (Reason: allergy symptoms) Qty: 10 12RF nitrofurantoin 25 mg/5 mL suspension 25 mg PO QID Qty: 240 3RF Rx Instructions: must administer with a meal/food multivitamin [Daily Multi-Vitamin] 1 EACH tablet 1 ea PO DAILY metoprolol tartrate 100 MG tablet 100 mg PO BID Qty: 180 0RF Eliquis 5 MG tablet 5 mg PO BID Qty: 60 3RF Discharge Instructions Instructions: Heart Palpitations (ED) Additional Instructions: it is likely you are going in and out of afib follow up with your technical support director if you feel more ill, have severe pain or difficulty breathing return to the emergency department Medical Decision Making 75 yo female with hx of afib, svt, who comes in with complaints of two weeks of intermittent episodes of feeling her heart beating fast and irregularly. She saw her technical support director at the end of October and was feeling well, and about a week later had an episode where her heart was beating approximately 130bpm and was irregular. She took an extra dose of her metoprolol and it resolved this. She has had several other episodes last being this morning. She denies any chest pain or pressure with these episodes nor does she feel like she may pass out. She denies any symptoms now, has not had any dyspnea or fevers or chills. She is in no distress and in sinus on exam. She has no jvd, no murmurs, clear lung sounds, no lower extremity swelling or calf tenderness. Suspect she has intermittently gone into afib given her history, given lack of other symptoms doubt more serious pathology such as vtach. She has not had any chest pain or pressure so doubt acs. Has no tachycardiac or hypoxia so doubt pe and no evidence of dvt on exam. No tearing back pain so doubt dissection. Normal lung sounds and no pleuritic pain so doubt pneumothorax, do not feel xray indicated. pt still asymptomatic and labs unremarkable, remains in sinus. Discussed with her and she feels well enough for d/c and do not feel she requires inpatient admission. She will f/u with her technical support director, return precautions given Differential Diagnosis Differential Diagnosis: afib, svt, electrolyte abnormality Medical Records Medical records reviewed: Yes I reviewed the patient's medical records. Lab Data Lab results reviewed: Yes I reviewed the patient's lab results. ECG Data Attestation: I personally reviewed and interpreted this ECG (s) as follows: Prior ECG tracings: available for review Interpretation: sinus rhythm, rate of 73, no stemi, HPI General Mode of arrival: ambulatory. Date/Time Provider Initiated Documentation: 12/11/21 15:48. Limitations to Documentation: no limitations. Information obtained by: patient. History of Present Illness 75 year old F presents to the emergency department with the chief complaint of palpitations, described as moderate, Patient started experiencing this week(s) (1) and it has been intermittent. No relieving factors improve symptom(s), No exacerbating factors reported . Patient notes no other symptoms.. Patient did receive the following treatments prior to arrival, none Related Data Home Medications Medication Instructions Recorded Confirmed multivitamin (Daily Multi-Vitamin 1 ea PO DAILY 11/23/16 12/11/21 tablet) apixaban 5 mg tablet (Eliquis) 5 mg PO BID #60 tabs 12/20/16 12/11/21 metoprolol tartrate 100 mg tablet 100 mg PO BID #180 tab-caps 02/16/17 12/11/21 diphenhydramine HCl 25 mg capsule 25 mg PO TID PRN allergy symptoms 08/13/21 12/11/21 (Benadryl) #10 caps nitrofurantoin 25 mg/5 mL oral 25 mg (5 mL) PO QID #240 mL 11/27/21 12/11/21 suspension Previous Rx's Medication Instructions Recorded apixaban 5 mg tablet (Eliquis) 5 mg PO BID #60 tabs 12/20/16 metoprolol tartrate 100 mg tablet 100 mg PO BID #180 tab-caps 02/16/17 diphenhydramine HCl 25 mg capsule 25 mg PO TID PRN allergy symptoms 08/13/21 (Benadryl) #10 caps nitrofurantoin 25 mg/5 mL oral 25 mg (5 mL) PO QID #240 mL 11/27/21 suspension Allergies Allergy/AdvReac Type Severity Reaction Status Date / Time amoxicillin [Amoxicillin] AdvReac Mild Topical Verified 11/19/21 13:10 Irritation sulfamethoxazole AdvReac Mild Topical Unverified 12/11/21 16:31 [From Bactrim] Irritation trimethoprim [From Bactrim] AdvReac Mild Topical Unverified 12/11/21 16:31 Irritation General Stated Complaint: Palpitatns AURE: 3 Review of Systems All systems reviewed & are unremarkable except as noted in HPI and below Constitutional Constitutional: Denies chills, Denies fever(s) and Denies weakness Cardiovascular Cardiovascular: Denies chest pain and Denies dyspnea Respiratory Respiratory: Denies cough and Denies dyspnea Gastrointestinal Gastrointestinal: Denies abdominal pain, Denies nausea and Denies vomiting Integumentary/Breasts Skin/Breast: Denies rash Neurologic Neurologic: Denies weakness PFS All Active Problems (Updated 12/11/21 @ 17:50 by Quirino Ferguson MD) Palpitations (Acute) Right nephrolithiasis (Acute) Hematuria (Acute) Discharge planning issues (Acute) Subclinical hypothyroidism (Acute) Dehydration (Acute) Prediabetes (Chronic) 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) Sensorineural hearing loss, bilateral (Acute 11/27/15) Transient cerebral ischemia (Acute 11/23/16) Atrial fibrillation with RVR (Acute) Elevated troponin (Acute) Recurrent UTI (urinary tract infection) (Acute) Medical History Anxiety Anxiety and depression Ataxia Atrial fibrillation Bilateral hearing loss Bilateral tinnitus Dizziness Edema Elevated TSH HLD (hyperlipidemia) Hypertension Hypoglycemia Obesity Onychomycosis Osteopenia Paroxysmal atrial fibrillation Prediabetes PSVT (paroxysmal supraventricular tachycardia) Recurrent UTI Visual field defect Surgical History No pertinent past surgical history Family History Father Heart disease Mother Hypertension Cancer cholangiocarcinoma Paternal Grandmother Cancer uterine ca Social History Smoking/Tobacco Use Status: Former Tobacco Use Quit Date: 02/21/11 Tobacco: How many years used: 45 Smoking risk assessment performed?: Yes Alcohol Intake: never Drug use: Never Substance use type: does not use What type of physical activity do you participate in: none and sedentary lifestyle Do you feel safe at home: Yes Do you feel safe in your relationship?: Yes Exam Const General: no acute distress Orientation: alert HENMT Head: normal to inspection Ears: external ears normal General nose exam: external nose normal Mouth: moist mucous membranes Eyes General: appearance normal, both eyes and all related structures Neck Neck: normal visual inspection Resp Effort & Inspection: normal respiratory effort and able to speak in complete sentences Cardio Jugular venous pressure: no JVD Rate: regular rate Rhythm: regular rhythm Heart Sounds: no murmurs Skin General skin exam: no rashes or lesions noted Neuro General: patient alert and patient oriented x3 Extrem General: normal to inspection Psych Mental Status: mental status grossly normal Course Vital Signs Vital signs: Vital Signs Temperature 36.8 C 12/11/21 15:23 Pulse 87 12/11/21 15:23 Respiratory Rate 20 12/11/21 15:23 Blood Pressure 162/84 H 12/11/21 15:23 Pulse Oximetry 100 12/11/21 15:23 Temperature 36.8 C 12/11/21 15:23 Temperature Source Temporal Artery Scan 12/11/21 15:23 Pulse 87 12/11/21 15:23 Respiratory Rate 20 12/11/21 15:23 Respiratory Effort Non-Labored 12/11/21 15:31 Blood Pressure 162/84 H 12/11/21 15:23 Pulse Oximetry 100 12/11/21 15:23 Oxygen Delivery Method Room Air 12/11/21 15:23 Oxygen Flow Rate 0 12/11/21 15:23 Pain Level 0 12/11/21 15:23
[2021-12-11 16:22] LABS: HCT 45.6 % (36.0-46.0); HGB 15.1 g/dL (11.2-15.7); MCH 32.7 pg (27.0-33.0); MCHC 33.1 % (32.0-36.0); MCV 99 fL (80-95); Platelet Count 188 10^3/uL (130-400); RBC 4.62 10^6/uL (3.93-5.22); RDW 13.3 % (11.7-14.6); RDW-SD 49.1 fL; WBC 6.59 10^3/uL (4.4-10.8)
[2021-12-11 16:44] LABS: ALT 23 U/L (14-59); AST 25 U/L (15-37); Albumin 3.9 g/dL (3.4-5.0); Alkaline Phosphatase 137 U/L (46-116); Anion Gap 8.1 mmol/L (3-11); BUN 19 mg/dL (7-18); Bilirubin, Total 0.3 mg/dL (0.2-1.0); CO2 29.9 mmol/L (21.0-32.0); CREATININE 0.7 mg/dL (0.55-1.02); Calcium 9.9 mg/dL (8.5-10.1); Chloride 104 mmol/L (98-107); Estimated GFR 89.58 (mL/min/1.73m2); Glucose 129 mg/dL (74-106); Potassium 3.9 mmol/L (3.5-5.1); Sodium 142 mmol/L (136-145); Total Protein 7.9 g/dL (6.4-8.2); Troponin I < 50 ng/L (<or=60)
[2021-12-11 16:46] LABS: Diff Comment Manual Differential; RBC Morphology Normal
[2021-12-11 16:47] LABS: Absolute Eosinophil Count 0.07 10^3/uL (0.0-0.7); Absolute Lymphocyte Count 2.17 10^3/uL (1.2-3.4); Absolute Neutrophil Count 3.95 10^3/uL (1.2-6.7)
== END 2021-12-11 18:10 | disposition home or self-care (01) ==
PROVIDERS: Emergency Provider Emergency Medicine; PCP Family Medicine
DX: R00.2 Palpitations; I10 Essential (primary) hypertension
CPT/HCPCS: 36415; 80053; 93005; 99283; 84484; 85025; 93010; 99282

== ENCOUNTER → 2022-01-08 09:04 | Outpatient (BNVA) | payer MEDICARE, MEDICAID, SELFPAY | PROVIDERS: PCP Family Medicine; Referring Provider Family Medicine; Visit Provider Internal Medicine Cardiovascular Disease | DX: I48.0 Paroxysmal atrial fibrillation (principal); I10 Essential (primary) hypertension | CPT/HCPCS: 99214 ==

== ENCOUNTER → 2022-05-25 14:17 | Outpatient (BNVA) | payer MEDICARE, MEDICAID, SELFPAY | PROVIDERS: PCP Family Medicine; Referring Provider Family Medicine; Visit Provider Internal Medicine Cardiovascular Disease | DX: I48.0 Paroxysmal atrial fibrillation (principal); Z79.01 Long term (current) use of anticoagulants; I10 Essential (primary) hypertension | CPT/HCPCS: 99213 ==

== ENCOUNTER 2022-05-27 02:22 | Outpatient (CLI) | payer MEDICARE, MEDICAID, SELFPAY ==
--- NOTE | 2022-05-27 07:30 | DI.US_ITS ---
Exam(s) US RENAL EXAM: US RENALi CLINICAL HISTORY: monitor for increasing stone burden,rt nephrolithiasis,n20.0 TECHNIQUE: Ultrasound of both kidneys performed using standard protocol. COMPARISON: CT CT THORAX ABDOMEN CTA from 06/25/2021 FINDINGS: RIGHT KIDNEY: Measures 9.3 cm in length. No cysts evident. Normal cortical thickness and corticomedullary different iation .No solid masses A solitary 3 millimeter nonobstructive calculus towards the lower pole right kidney. LEFT KIDNEY: Measures 8.8 cm in length. No cysts evident. Normal cortical thickness and corticomedullary differen tiaion. No solids masses. No intrarenal calculi nor hydonephrosis. URINARY BLADDER: Not able to be studied as empty. IMPRESSION: 1. There is a solitary small 3 millimeter nonobstructive calculus in the right kidney, this correspo nding to findings on the CT scan of June 2021. 2. No other renal findings on this ultrasound examination. Urinary bladder was not able to be studies as the patient was not able to retain urine in the bladder lumen. DATA REPOSITORY:
== END 2022-05-27 02:42 ==
LOC: DI 02:22
PROVIDERS: PCP Family Medicine; Visit Provider Urology
DX: N20.0 Calculus of kidney (principal)
CPT/HCPCS: 76770

== ENCOUNTER → 2022-06-08 07:33 | Outpatient (BNVA) | payer MEDICARE, MEDICAID, SELFPAY | PROVIDERS: PCP Family Medicine; Referring Provider Family Medicine; Visit Provider Urology | DX: N20.0 Calculus of kidney (principal); Z87.440 Personal history of urinary (tract) infections | CPT/HCPCS: 99443 ==

== ENCOUNTER 2022-06-29 18:16 | Outpatient (REF) | payer MEDICARE, MEDICAID, SELFPAY ==
[2022-06-29 16:08] LABS: Hemoglobin A1C 5.6 % (<5.7)
[2022-06-29 16:21] LABS: Anion Gap 6.2 mmol/L (3-11); BUN 17 mg/dL (7-18); CO2 26.8 mmol/L (21.0-32.0); CREATININE 0.8 mg/dL (0.55-1.02); Calcium 9.2 mg/dL (8.5-10.1); Chloride 107 mmol/L (98-107); Estimated GFR 75.84 (mL/min/1.73m2); Glucose 111 mg/dL (74-106); Potassium 4.4 mmol/L (3.5-5.1); Sodium 140 mmol/L (136-145); TSH (W/Ref FT4) 5.37 uIU/mL (0.36-3.74)
[2022-06-29 16:44] LABS: FREE T4 1.01 ng/dL (0.76-1.46)
== END 2022-06-29 18:17 | disposition home or self-care (01) ==
LOC: NCHCN 18:16
PROVIDERS: PCP Family Medicine; Visit Provider Family Medicine
DX: I10 Essential (primary) hypertension (principal); E03.9 Hypothyroidism, unspecified; R73.03 Prediabetes
CPT/HCPCS: 80048; 83036; 84439; 84443

== ENCOUNTER → 2022-09-09 07:44 | Outpatient (BNVA) | payer MEDICARE, MEDICAID, SELFPAY | PROVIDERS: PCP Family Medicine; Referring Provider Family Medicine; Visit Provider Urology | DX: Z09 Encounter for follow-up examination after completed treatment for conditions other than malignant neoplasm (principal); Z87.440 Personal history of urinary (tract) infections; Z87.442 Personal history of urinary calculi | CPT/HCPCS: 99443 ==

== ENCOUNTER 2022-10-06 17:21 | Outpatient (REF) | payer MEDICARE, MEDICAID, SELFPAY ==
[2022-10-06 21:16] LABS: Creatine Kinase 60 U/L (26-192); TSH (W/Ref FT4) 3.31 uIU/mL (0.36-3.74)
== END 2022-10-06 17:22 | disposition home or self-care (01) ==
LOC: NCHCN 17:21
PROVIDERS: PCP Family Medicine; Visit Provider Family Medicine
DX: E03.9 Hypothyroidism, unspecified (principal); M62.81 Muscle weakness (generalized)
CPT/HCPCS: 82550; 84443

== ENCOUNTER → 2022-12-07 07:46 | Outpatient (BNVA) | payer MEDICARE, MEDICAID, SELFPAY | PROVIDERS: PCP Family Medicine; Referring Provider Family Medicine; Visit Provider Urology | DX: Z09 Encounter for follow-up examination after completed treatment for conditions other than malignant neoplasm (principal); Z87.440 Personal history of urinary (tract) infections | CPT/HCPCS: 99443 ==

== ENCOUNTER → 2022-12-16 13:02 | Outpatient (BNVA) | payer MEDICARE, MEDICAID, SELFPAY | PROVIDERS: PCP Family Medicine; Referring Provider Family Medicine; Visit Provider Internal Medicine Cardiovascular Disease | DX: Z79.01 Long term (current) use of anticoagulants (principal); I48.0 Paroxysmal atrial fibrillation; I10 Essential (primary) hypertension | CPT/HCPCS: 99214 ==

== ENCOUNTER 2023-01-11 02:42 | Emergency (ER) | payer MEDICARE, MEDICAID, SELFPAY ==
[2023-01-11] VITALS (83 sets, daily range): BP systolic 102–187; BP diastolic 31–143; PULSE 53–82; RESP 5–25; TEMP 36.7; O2SAT 92–99
--- NOTE | 2023-01-11 02:30 | RT.EKG_ITS ---
APPROVED REPORT Exam: Resting ECG Reason for Exam: sob Patient Location: E HR:76 bpm ECG Measurements Heart Rate 76 AXIS [place] 256 P 78 QRSd 94 QRS 6 QT 365 T 58 QTc 411 Conclusion Sinus rhythm... V-rate 60- 99 Prolonged AZ interval...AZ >220, V-rate 50- [address] segment or T wave abnormalities to suggest occlusive GA
--- NOTE | 2023-01-11 02:51 | W.ED.GENAD ---
Discharge Plan Disposition Condition: Good Discharge Details Chief Complaint: GenMedical Primary Care Provider: Lillian Huggins ED Provider: Jenny Iyer Home Meds and New Rx's Prescriptions: No Action diphenhydramine HCl [Benadryl] 25 mg capsule 25 mg PO TID PRN (Reason: allergy symptoms) Qty: 10 12RF multivitamin [Daily Multi-Vitamin] 1 EACH tablet 1 ea PO DAILY metoprolol tartrate 100 MG tablet 100 mg PO BID Qty: 180 0RF Eliquis 5 MG tablet 5 mg PO BID Qty: 60 3RF Discharge Instructions Referrals: iLllian Huggins MD [Primary Care Provider] - Medical Decision Making 77yo F with hx of HTN, afib and SVT presenting for palpations. History from patient, EMS, [facility] record review. 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 This morning woke with 'racing heart' which has not happened in several months; took her home metoprolol and called EMS. Sinus rhythm on their arrival. No chest pain, shortness of breath, or lightheadedness at any point. Hypertensive on arrival, vital signs otherwise reassuring. EKG sinus rhythm with rate in 70's, prolonged WI otherwise appropriate intervals, no ST segment or T wave abnormalities to suggest occlusive IA. Symptoms consistent with episode of afib with RVR, resolved prior to arrival. Will evaluate for provoking factors with labs, monitor on tele while in the ED for recurrence. Labs reviewed as below, CBC reassuring with no anemia or leukocytosis, CMP with no significant abnormalities including no significant electrolyte abnormalities, Mg normal, TSH elevated with normal T4 (hx of subclinical hypothyroidism on record review), initial troponin negative. On reassessment she remains well appearing with reassuring vital signs, BP improved, HR remains in 70's-80's SR on the monitor. Repeat troponin marginally elevated at 86; suspect likely demand related in the setting of likely RVR of unknown duration. Remains chest pain free. Will get 3rd troponin; if downtrending would discharged home to outpatient followup, otherwise would consider observation/admission. Signed out to oncoming physician, disposition pending clinical course. Medical Records Medical records reviewed: Yes I reviewed the patient's medical records. Medical records narrative: cardiology clinic note 10/26/23 Lab Data Lab results reviewed: Yes I reviewed the patient's lab results. Labs: Laboratory Tests Range/Units 01/11/23 03:10 WBC (4.4-10.8) 10^3/uL 5.19 RBC (3.93-5.22) 10^6/uL 4.02 Hgb (11.2-15.7) g/dL 13.6 Hct (36.0-46.0) % 40.6 MCV (80-95) fL 101 H MCH (27.0-33.0) pg 33.8 H MCHC (32.0-36.0) % 33.5 RDW (11.7-14.6) % 13.8 Plt Count (130-400) 10^3/uL 154 MPV (8.0-11.0) fL 12.3 H Immature Gran % 8.5 Neutrophils % 44.6 Lymphocytes % 36.2 Monocytes % 9.2 Eosinophils % 1.3 Basophils % 0.2 Nucleated RBC % (0.0-0.3) % 0.0 Absolute Neutrophils (1.2-6.7) 10^3/uL 2.31 Absolute Lymphocytes (1.2-3.4) 10^3/uL 1.88 Absolute Monocytes (0.1-0.8) 10^3/uL 0.48 Absolute Eosinophils (0.0-0.7) 10^3/uL 0.07 Absolute Basophils (0.0-0.2) 10^3/uL 0.01 Sodium (136-145) mmol/L 140 Potassium (3.5-5.1) mmol/L 3.5 Chloride (98-107) mmol/L 105 Carbon Dioxide (21.0-32.0) mmol/L 29.3 Anion Gap (3-11) mmol/L 5.7 BUN (7-18) mg/dL 16 Creatinine (0.55-1.02) mg/dL 0.8 Est GFR (CKD-EPI 2020) (mL/min/1.73m2) 75.37 Glucose (74-106) mg/dL 129 H Calcium (8.5-10.1) mg/dL 9.7 Magnesium (1.8-2.4) mg/dL 2.1 Total Bilirubin (0.2-1.0) mg/dL 0.4 AST (15-37) U/L 24 ALT (14-59) U/L 25 Alkaline Phosphatase (46-116) U/L 131 H Troponin I (<or=60) ng/L < 50 Total Protein (6.4-8.2) g/dL 7.1 Albumin (3.4-5.0) g/dL 3.3 L TSH (0.36-3.74) uIU/mL 8.08 H Free T4 (0.76-1.46) ng/dL 1.02 HPI General Mode of arrival: EMS. Date/Time Provider Initiated Documentation: 01/11/23 02:51. Limitations to Documentation: no limitations. Information obtained by: patient, EMS and old records reviewed. HPI Narrative: 77yo F with hx of afib and SVT presenting for palpations. History from patient, EMS, [facility] record review. She reports having more frequent episodes of palpations over the past 6 months. This morning woke up with palpitations and heart racing; the racing heart is more unusual for her and has not happened in several months. She took her morning doses of metoprolol and eliquis and called EMS. On their arrival she was in sinus rhythm. No chest pain, shortness of breath, or lightheadedness at any point. 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 Has scheduled appointment with her PCP this Tuesday. She is otherwise in her usual state of health with no fevers, chills, rash, nausea, vomiting, abdominal pain, diarrhea, recent illness, or other concerns. Related Data Home Medications Medication Instructions Recorded Confirmed multivitamin (Daily Multi-Vitamin 1 ea PO DAILY 11/23/16 01/11/23 tablet) apixaban 5 mg tablet (Eliquis) 5 mg PO BID #60 tabs 12/20/16 01/11/23 metoprolol tartrate 100 mg tablet 100 mg PO BID #180 tab-caps 02/16/17 01/11/23 diphenhydramine HCl 25 mg capsule 25 mg PO TID PRN allergy symptoms 08/13/21 01/11/23 (Benadryl) #10 caps Previous Rx's Medication Instructions Recorded apixaban 5 mg tablet (Eliquis) 5 mg PO BID #60 tabs 12/20/16 metoprolol tartrate 100 mg tablet 100 mg PO BID #180 tab-caps 02/16/17 diphenhydramine HCl 25 mg capsule 25 mg PO TID PRN allergy symptoms 08/13/21 (Benadryl) #10 caps Allergies Allergy/AdvReac Type Severity Reaction Status Date / Time amoxicillin [Amoxicillin] AdvReac Mild Topical Verified 01/11/23 07:16 Irritation sulfamethoxazole AdvReac Mild Topical Verified 01/11/23 07:16 [From Bactrim] Irritation trimethoprim [From Bactrim] AdvReac Mild Topical Verified 01/11/23 07:16 Irritation General Stated Complaint: GenMedical AURE: 3 Review of Systems Narrative: see HPI PFSH All Active Problems (Updated 01/11/23 @ 06:53 by Jenny Iyer MD) Right nephrolithiasis (Acute) Hematuria (Acute) Discharge planning issues (Acute) Subclinical hypothyroidism (Acute) Dehydration (Acute) Prediabetes (Chronic) 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) Sensorineural hearing loss, bilateral (Acute 11/27/15) Transient cerebral ischemia (Acute 11/23/16) Atrial fibrillation with RVR (Acute) Elevated troponin (Acute) Recurrent UTI (urinary tract infection) (Acute) Medical History Paroxysmal atrial fibrillation Anxiety Edema Obesity Anxiety and depression Recurrent UTI Bilateral hearing loss Ataxia Dizziness Visual field defect Elevated TSH Hypoglycemia Prediabetes HLD (hyperlipidemia) PSVT (paroxysmal supraventricular tachycardia) Osteopenia Onychomycosis Bilateral tinnitus Hypertension Atrial fibrillation Surgical History No pertinent past surgical history Family History Father Heart disease Mother Hypertension Cancer cholangiocarcinoma Paternal Grandmother Cancer uterine ca Social History Smoking/Tobacco Use Status: Former Tobacco Use Quit Date: 02/21/11 Tobacco: How many years used: 45 Smoking risk assessment performed?: Yes Alcohol Intake: never Drug use: Never Substance use type: does not use What type of physical activity do you participate in: none and sedentary lifestyle Do you feel safe at home: Yes Do you feel safe in your relationship?: Yes Exam Narrative Exam Narrative: General: Alert, well appearing, well nourished, in no acute distress. Head: Normocephalic, atraumatic Neck: Trachea midline, Neck supple. ENT: MMM. Cardiac: RRR, no murmurs appreciated Resp: No respiratory distress. CTAB. Abd: Soft, non-distended, nontender : No suprapubic tenderness. Extremities: No deformities. No peripheral edema. Neurologic: GCS 15. Moves all extremities freely against gravity Course Vital Signs Vital signs: Vital Signs Temperature 36.7 C 01/11/23 02:38 Pulse 82 01/11/23 02:38 Respiratory Rate 18 01/11/23 02:38 Blood Pressure 158/119 H 01/11/23 02:38 Pulse Oximetry 96 01/11/23 02:38 Temperature 36.7 C 01/11/23 02:38 Pulse 74 01/11/23 02:43 Respiratory Rate 18 01/11/23 02:43 Respiratory Effort Normal 01/11/23 02:43 Respiratory Depth Normal 01/11/23 02:43 Respiratory Pattern Normal 01/11/23 02:43 Blood Pressure 173/61 H 01/11/23 02:43 Pulse Oximetry 99 01/11/23 02:43 Oxygen Delivery Method Room Air 01/11/23 02:43 Pain Level 0 01/11/23 02:43 Sign Out Sign Out Data: Sign Out Comment: 77yo F hx pAfib on metoprolol and eliquis, woke this morning with 'racing heart' likely afib RVR. Resolved after she took her morning metop, in sinus on EMS arrival, sinus here. No chest pain or SOB at any point. 2nd trop marginally elevated @86. Pending repeat troponin; if downtrending would dc to outpatient followup Last updated by Jenny Iyer MD at 01/11/23 06:56
[2023-01-11 03:20] LABS: Abs Immature Grans 0.44 10^3/uL (0.0-0.06); Absolute Basophil Count 0.01 10^3/uL (0.0-0.2); Absolute Eosinophil Count 0.07 10^3/uL (0.0-0.7); Absolute Lymphocyte Count 1.88 10^3/uL (1.2-3.4); Absolute Monocyte Count 0.48 10^3/uL (0.1-0.8); Absolute Neutrophil Count 2.31 10^3/uL (1.2-6.7); Basophils % 0.2; Eosinophils % 1.3; HCT 40.6 % (36.0-46.0); HGB 13.6 g/dL (11.2-15.7); Immature Grans % 8.5; Lymphocytes % 36.2; MCH 33.8 pg (27.0-33.0); MCHC 33.5 % (32.0-36.0); MCV 101 fL (80-95); MPV 12.3 fL (8.0-11.0); Monocytes % 9.2; Neutrophils % 44.6; Platelet Count 154 10^3/uL (130-400); RBC 4.02 10^6/uL (3.93-5.22); RDW 13.8 % (11.7-14.6); RDW-SD 51.8 fL; WBC 5.19 10^3/uL (4.4-10.8)
[2023-01-11 03:42] LABS: ALT 25 U/L (14-59); AST 24 U/L (15-37); Albumin 3.3 g/dL (3.4-5.0); Alkaline Phosphatase 131 U/L (46-116); Anion Gap 5.7 mmol/L (3-11); BUN 16 mg/dL (7-18); Bilirubin, Total 0.4 mg/dL (0.2-1.0); CO2 29.3 mmol/L (21.0-32.0); CREATININE 0.8 mg/dL (0.55-1.02); Calcium 9.7 mg/dL (8.5-10.1); Chloride 105 mmol/L (98-107); Estimated GFR 75.37 (mL/min/1.73m2); Glucose 129 mg/dL (74-106); Magnesium 2.1 mg/dL (1.8-2.4); Potassium 3.5 mmol/L (3.5-5.1); Sodium 140 mmol/L (136-145); TSH (W/Ref FT4) 8.08 uIU/mL (0.36-3.74); Total Protein 7.1 g/dL (6.4-8.2); Troponin I < 50 ng/L (<or=60)
[2023-01-11 04:00] LABS: FREE T4 1.02 ng/dL (0.76-1.46)
[2023-01-11 06:49] LABS: Troponin I 86 ng/L (<or=60)
[2023-01-11 09:41] LABS: Troponin I 74 ng/L (<or=60)
--- NOTE | 2023-01-11 10:11 | ED.PROG_ITS ---
Date of service: 01/11/23 Time of Service: 10:12 Medical Decision Making Care signed out by Dr. Iyer, please see her documentation regarding initial ED presentation course. Plan to signout was to follow-up on third troponin - trending down, plan for discharge. Labs reviewed and troponin trending down, now 74. I consulted Dr. Oliva, discussed ED presentation and course including diagnostics, she recommends discharge with routine outpatient follow-up. She does not recommend medication dosing changes at this time. Patient reassessed remained stable. Discharge plan discussed with the patient. Usual customary discharge instructions were reviewed. Lab Data Lab results reviewed: Yes I reviewed the patient's lab results. Labs: Laboratory Tests Range/Units 01/11/23 01/11/23 01/11/23 03:10 06:23 09:10 WBC (4.4-10.8) 10^3/uL 5.19 RBC (3.93-5.22) 10^6/uL 4.02 Hgb (11.2-15.7) g/dL 13.6 Hct (36.0-46.0) % 40.6 MCV (80-95) fL 101 H MCH (27.0-33.0) pg 33.8 H MCHC (32.0-36.0) % 33.5 RDW (11.7-14.6) % 13.8 Plt Count (130-400) 10^3/uL 154 MPV (8.0-11.0) fL 12.3 H Immature Gran % 8.5 Neutrophils % 44.6 Lymphocytes % 36.2 Monocytes % 9.2 Eosinophils % 1.3 Basophils % 0.2 Nucleated RBC % (0.0-0.3) % 0.0 Absolute Neutrophils (1.2-6.7) 10^3/uL 2.31 Absolute Lymphocytes (1.2-3.4) 10^3/uL 1.88 Absolute Monocytes (0.1-0.8) 10^3/uL 0.48 Absolute Eosinophils (0.0-0.7) 10^3/uL 0.07 Absolute Basophils (0.0-0.2) 10^3/uL 0.01 Sodium (136-145) mmol/L 140 Potassium (3.5-5.1) mmol/L 3.5 Chloride (98-107) mmol/L 105 Carbon Dioxide (21.0-32.0) mmol/L 29.3 Anion Gap (3-11) mmol/L 5.7 BUN (7-18) mg/dL 16 Creatinine (0.55-1.02) mg/dL 0.8 Est GFR (CKD-EPI 2020) (mL/min/1.73m2) 75.37 Glucose (74-106) mg/dL 129 H Calcium (8.5-10.1) mg/dL 9.7 Magnesium (1.8-2.4) mg/dL 2.1 Total Bilirubin (0.2-1.0) mg/dL 0.4 AST (15-37) U/L 24 ALT (14-59) U/L 25 Alkaline Phosphatase (46-116) U/L 131 H Troponin I (<or=60) ng/L < 50 86 H* 74 H* Total Protein (6.4-8.2) g/dL 7.1 Albumin (3.4-5.0) g/dL 3.3 L TSH (0.36-3.74) uIU/mL 8.08 H Free T4 (0.76-1.46) ng/dL 1.02 Sign Out Sign Out Data: Sign Out Comment: 77yo F hx pAfib on metoprolol and eliquis, woke this morning with 'racing heart' likely afib RVR. Resolved after she took her morning metop, in sinus on EMS arrival, sinus here. No chest pain or SOB at any point. 2nd trop marginally elevated @86. Pending repeat troponin; if downtrending would dc to outpatient followup Last updated by Jenny Iyer MD at 01/11/23 06:56 Discharge Plan Disposition Patient Disposition: Home Condition: Stable Discharge Details Clinical Impression: History of palpitations, Elevated troponin Primary Care Provider: Lillian Huggins ED Provider: Diego Shields Home Meds and New Rx's Prescriptions: Continued diphenhydramine HCl [Benadryl] 25 mg capsule 25 mg PO TID PRN (Reason: allergy symptoms) Qty: 10 12RF multivitamin [Daily Multi-Vitamin] 1 EACH tablet 1 ea PO DAILY metoprolol tartrate 100 MG tablet 100 mg PO BID Qty: 180 0RF Eliquis 5 MG tablet 5 mg PO BID Qty: 60 3RF Discharge Instructions Additional Instructions: Please contact your primary care physician to arrange follow-up. Please follow-up with cardiology. You may wish to take over the counter magnesium citrate, up to 400 mg nightly as needed for palpitations. Return to the ER immediately for any worsening or new concerning symptoms. Referrals: Lillian Huggins MD [Primary Care Provider] - Discharge Data Discharge Date/Time-TO BE ENTERED AT DEPARTURE: 01/11/23 11:15
== END 2023-01-11 11:15 | disposition home or self-care (01) ==
PROVIDERS: Student in an Organized Health Care Education/Training Program; Emergency Provider Student in an Organized Health Care Education/Training Program; PCP Family Medicine
DX: R00.2 Palpitations (principal); I48.0 Paroxysmal atrial fibrillation; R94.31 Abnormal electrocardiogram [ECG] [EKG]; E78.5 Hyperlipidemia, unspecified; I10 Essential (primary) hypertension; R79.89 Other specified abnormal findings of blood chemistry; Z87.891 Personal history of nicotine dependence
CPT/HCPCS: 00123; 36415; 80053; 93005; 99283; 83735; 84439; 84443; 84484; 85025; 93010

== ENCOUNTER → 2023-03-08 07:50 | Outpatient (BNVA) | payer MEDICARE, MEDICAID, SELFPAY | PROVIDERS: PCP Family Medicine; Visit Provider Urology | DX: N20.0 Calculus of kidney (principal); N39.0 Urinary tract infection, site not specified | CPT/HCPCS: 99443 ==

== ENCOUNTER 2023-03-14 15:02 | Outpatient (REF) | payer MEDICARE, MEDICAID, SELFPAY ==
[2023-03-14 16:16] LABS: TSH 7.45 uIU/mL (0.36-3.74)
[2023-03-14 22:21] LABS: T3,Free 4.4 pg/mL (2.8-5.3)
== END 2023-03-14 15:03 | disposition home or self-care (01) ==
LOC: NCHCN 15:02
PROVIDERS: PCP Family Medicine; Visit Provider Family Medicine
DX: E02 Subclinical iodine-deficiency hypothyroidism (principal)
CPT/HCPCS: 84439; 84443; 84481

== ENCOUNTER → 2023-06-01 03:54 | Outpatient (CLI) | payer MEDICARE, MEDICAID, SELFPAY ==
--- NOTE | 2023-06-01 14:00 | DI.US_ITS ---
Exam(s) US RENAL EXAM: US RENAL CLINICAL HISTORY: monitor known stones,RT NEPHROLITHIASIS,N20.0. TECHNIQUE: Mccormack scale, color and spectral Doppler were used. COMPARISON: US US RENAL from 05/27/2022 FINDINGS: The exam is limited by patient body habitus. Renal size in cm: Right: 8.4 left: 10.1 Echogenicity: Normal Hydronephrosis: No Cyst or mass: No Nephrolithiasis: 4 millimeter stone lower pole right kidney. No new calculi. Bladder: Nearly empty. IMPRESSION: 4 millimeters stone lower pole right kidney. DATA REPOSITORY:
== END ==
PROVIDERS: PCP Family Medicine; Visit Provider Urology
DX: N20.0 Calculus of kidney (principal)
CPT/HCPCS: 76770

== ENCOUNTER → 2023-06-06 10:00 | Outpatient (BNVA) | payer MEDICARE, MEDICAID, SELFPAY | PROVIDERS: PCP Family Medicine; Referring Provider Family Medicine; Visit Provider Urology | DX: N20.0 Calculus of kidney (principal); Z87.440 Personal history of urinary (tract) infections | CPT/HCPCS: 99443 ==

== ENCOUNTER → 2023-08-30 10:45 | Outpatient (BNVA) | payer MEDICARE, MEDICAID, SELFPAY | PROVIDERS: PCP Family Medicine; Visit Provider Internal Medicine Cardiovascular Disease | DX: I48.0 Paroxysmal atrial fibrillation (principal); I10 Essential (primary) hypertension | CPT/HCPCS: 99213 ==

== ENCOUNTER 2023-11-07 03:25 | Outpatient (CLI) | payer MEDICARE, MEDICAID, SELFPAY ==
--- NOTE | 2023-11-07 | DI.DEXA_ITS ---
Exam(s) XR DEXA BONE DENSITY W/WO RAMON EXAM: XR DEXA BONE DENSITY W/WO RAMON CLINICAL HISTORY: SCREENING FOR OSTEOPOROSIS, Z78.0 TECHNIQUE: HoloTantaline Horizon C densitometer analysis of left hip, lumbar spine and left forearm. Lat eral survey image of the thoracic and lumbar spine. COMPARISON: DX XR DEXA BONE DENSITY W/WO RAMON from 01/24/2018 CR XR DEXA BONE DENSITY W/WO RAMON from 07/03/2021 DEXA 2006 FINDINGS: Lateral view of the thoracic and lumbar spine shows no evidence of compression fractures. Bone mineral density measurements of the lumbar spine correspond to a total T-score of -0.3, in the normal range. This is not significantly changed from 2021 and represents a 9.3 percent increase from 2006. This increase could be in part secondary to degenerative changes. Bone mineral density measurements of the left hip correspond to a total T-score of -0.9, in the norm al range. This represents a 14.7 percent increase from 2021 and a 17.4 percent increase from 2006.. The femoral neck T-score is . Theleft forearm bone mineral density measurements correspond to a T-score of the distal 3rd of -1.2, consistent with mild osteopenia. This is not significantly changed from 2017 and 2021. The forearm was not analyzed in 2006.. IMPRESSION: Normal bone mineral density of the spine and hip with increases from prior exams. Stable mild osteop enia of the forearm.
== END 2023-11-07 03:45 ==
LOC: DI 03:25
PROVIDERS: PCP Family Medicine; Visit Provider Family Medicine
DX: Z13.820 Encounter for screening for osteoporosis (principal); Z78.0 Asymptomatic menopausal state
CPT/HCPCS: 77080

== ENCOUNTER 2023-12-21 12:26 | Outpatient (REF) | payer MEDICARE, MEDICAID, SELFPAY ==
[2023-12-21 17:01] LABS: Bilirubin Negative (Negative); Blood Moderate (Negative); Clarity Clear (Clear); Glucose Negative (Negative); Ketones Negative (Negative); Leukocyte Esterase Negative (Negative); Nitrite Negative (Negative); Specific Gravity 1.025 (1.005-1.025); Urobilinogen 0.2 mg/dL (Up to 0.2)
[2023-12-21 17:09] LABS: Bacteria Negative HPF (Negative); C & S Indicated? No; Crystals Few Calcium Oxalate HPF (Negative); Epithelial Cells Rare HPF (Negative); Mucus Trace (Negative); Other Cells Negative (Negative)
== END 2023-12-21 12:27 | disposition home or self-care (01) ==
LOC: NCHCN 12:26
PROVIDERS: PCP Family Medicine; Visit Provider Family Medicine
DX: R30.0 Dysuria (principal); R82.89 Other abnormal findings on cytological and histological examination of urine
CPT/HCPCS: 81003; 81015

== ENCOUNTER 2024-04-06 07:50 | Outpatient (CLI) | payer MEDICARE, MEDICAID, SELFPAY | END 2024-04-06 07:51 | disposition home or self-care (01) | LOC: DI.CARD 07:51 | PROVIDERS: PCP Family Medicine; Visit Provider Internal Medicine Cardiovascular Disease | CPT/HCPCS: 93010 ==

== ENCOUNTER 2024-06-08 00:10 | Outpatient (CLI) | payer MEDICARE, MEDICAID, SELFPAY ==
--- NOTE | 2024-06-08 07:45 | DI.US_ITS ---
Exam(s) US RENAL EXAM: US RENAL CLINICAL HISTORY: monitor known kidney stones,rt nephrolithiasis,n20.0. TECHNIQUE: Mccormack scale imaging and color doppler were used. COMPARISON: CT CT THORAX ABDOMEN CTA from 06/25/2021 US US RENAL from 06/01/2023 FINDINGS: Right kidney: 9.0 x 4.1 x 5.1cm Echogenicity: Normal Hydronephrosis: No Cyst or mass: 12 mm parapelvic cyst. Nephrolithiasis: A 4 millimeter stone is again noted near the lower pole Left kidney: 9.4 x 5.1 x 4.8cm Echogenicity: Normal Hydronephrosis: No Cyst or mass: No Nephrolithiasis: No Bladder:Normal. Prevoid vol:37 cc Postvoid vol:0 cc IMPRESSION: 4 millimeter stone near lower pole of the right kidney. 12 millimeter parapelvic cyst right kidney. DATA REPOSITORY:
== END 2024-06-08 00:30 ==
LOC: DI 00:10
PROVIDERS: PCP Family Medicine; Visit Provider Urology
DX: N20.0 Calculus of kidney (principal)
CPT/HCPCS: 76770

== ENCOUNTER 2024-06-15 15:05 | Outpatient (REF) | payer MEDICARE, MEDICAID, SELFPAY ==
[2024-06-15 21:25] LABS: HCT 38.1 % (36.0-46.0); HGB 12.9 g/dL (11.2-15.7); MCH 33.7 pg (27.0-33.0); MCHC 33.9 % (32.0-36.0); MCV 100 fL (80-95); Platelet Count 153 10^3/uL (130-400); RBC 3.83 10^6/uL (3.93-5.22); RDW 13.6 % (11.7-14.6); RDW-SD 49.8 fL; WBC 4.85 10^3/uL (4.4-10.8)
[2024-06-15 21:30] LABS: Bilirubin Negative (Negative); Blood Moderate (Negative); Clarity Clear (Clear); Glucose Negative (Negative); Ketones Negative (Negative); Leukocyte Esterase Trace (Negative); Nitrite Negative (Negative); Specific Gravity >= 1.030 (1.005-1.025); Urobilinogen 0.2 mg/dL (Up to 0.2)
[2024-06-15 21:53] LABS: Bacteria Rare HPF (Negative); Crystals Mod Calcium Oxalate HPF (Negative); Epithelial Cells Few HPF (Negative); Mucus Negative (Negative); Other Cells Rare Transitional (Negative); RBC 20-50 HPF (0-2)
[2024-06-15 21:54] LABS: C & S Indicated? Yes
[2024-06-15 22:00] LABS: ALT 24 U/L (14-59); AST 24 U/L (15-37); Albumin 3.6 g/dL (3.4-5.0); Alkaline Phosphatase 120 U/L (46-116); Anion Gap 7.7 mmol/L (3-11); BUN 20 mg/dL (7-18); Bilirubin, Total 0.4 mg/dL (0.2-1.0); CO2 28.3 mmol/L (21.0-32.0); CREATININE 0.8 mg/dL (0.55-1.02); Calcium 9.4 mg/dL (8.5-10.1); Chloride 106 mmol/L (98-107); Glucose 108 mg/dL (74-106); Potassium 4.4 mmol/L (3.5-5.1); Sodium 142 mmol/L (136-145); TSH (W/Ref FT4) 3.75 uIU/mL (0.36-3.74); Total Protein 6.5 g/dL (6.4-8.2)
[2024-06-15 22:06] LABS: Hemoglobin A1C 5.5 % (<5.7)
[2024-06-15 22:42] LABS: FREE T4 1.01 ng/dL (0.76-1.46)
[2024-06-18 10:13] LABS: Thyroperoxidase Antibody 89 U/mL (<=60)
[2024-06-18 10:17] LABS: Thyroglobulin Antibody <15 U/mL (<=60)
== END 2024-06-15 15:06 | disposition home or self-care (01) ==
LOC: NCHCN 15:05
PROVIDERS: PCP Family Medicine; Visit Provider Family Medicine
DX: R73.03 Prediabetes (principal); E02 Subclinical iodine-deficiency hypothyroidism; N39.0 Urinary tract infection, site not specified; R82.89 Other abnormal findings on cytological and histological examination of urine; R63.4 Abnormal weight loss; R53.82 Chronic fatigue, unspecified
CPT/HCPCS: 80053; 85027; 81003; 81015; 83036; 84439; 84443; 86376; 86800; 87086

== ENCOUNTER 2024-08-30 09:21 | Outpatient (CLI) | payer MEDICARE, MEDICAID, SELFPAY ==
--- NOTE | 2024-08-30 09:15 | RT.EKG_ITS ---
APPROVED REPORT Exam: Resting ECG Reason for Exam: afib Patient Location: O HR:59 bpm ECG Measurements Heart Rate 59 AXIS [place] 237 P 43 QRSd 91 QRS -9 QT 387 T 39 QTc 384 Conclusion Sinus rhythm...normal P axis, V-rate 50- 99 Prolonged TX interval...TX >220, V-rate 50- 90 Possible anteroseptal infarct, age indeterminate...Q >35mS, T neg, V1-V2
== END 2024-08-30 09:22 | disposition home or self-care (01) ==
LOC: DI.CARD 09:22
PROVIDERS: PCP Family Medicine; Visit Provider Internal Medicine Cardiovascular Disease
DX: I48.91 Unspecified atrial fibrillation (principal)
CPT/HCPCS: 93010

== ENCOUNTER → 2024-08-30 12:50 | Outpatient (BNVA) | payer MEDICARE, MEDICAID, SELFPAY | PROVIDERS: PCP Family Medicine; Referring Provider Family Medicine; Visit Provider Internal Medicine Cardiovascular Disease | DX: I48.0 Paroxysmal atrial fibrillation (principal); I47.10 Supraventricular tachycardia, unspecified; I48.91 Unspecified atrial fibrillation | CPT/HCPCS: 99214; 93005 ==

== ENCOUNTER → 2024-09-11 07:53 | Outpatient (BNVA) | payer MEDICARE, MEDICAID, SELFPAY | PROVIDERS: PCP Family Medicine; Referring Provider Family Medicine; Visit Provider Urology | DX: N20.0 Calculus of kidney (principal); N39.0 Urinary tract infection, site not specified | CPT/HCPCS: 99213 ==

== ENCOUNTER 2024-10-25 07:08 | Emergency (ER) | payer MEDICARE, MEDICAID, SELFPAY ==
[2024-10-25] VITALS (10 sets, daily range): BP systolic 128–185; BP diastolic 70–136; PULSE 40–104; RESP 7–21; TEMP 36.2–36.7; O2SAT 96–100
--- NOTE | 2024-10-25 07:00 | RT.EKG_ITS ---
APPROVED REPORT Exam: Resting ECG Reason for Exam: afib Patient Location: E HR:108 bpm ECG Measurements Heart Rate 108 AXIS [place] [id number] P [id number] QRSd 94 QRS 44 QT 338 T 33 QTc 453 Conclusion Atrial fibrillation...V-rate 88-132, irreg A-activity Low voltage, precordial leads...precordial leads <1.0mV Anteroseptal infarct, old...Q >40mS, V1-V2 Borderline ST depression, diffuse leads...ST <-0.07mV, ant/lat/inf
[2024-10-25 07:36] LABS: HCT 39.5 % (36.0-46.0); HGB 13.1 g/dL (11.2-15.7); MCH 33.1 pg (27.0-33.0); MCHC 33.2 % (32.0-36.0); MCV 100 fL (80-95); MPV 12.6 fL (8.0-11.0); Platelet Count 116 10^3/uL (130-400); RBC 3.96 10^6/uL (3.93-5.22); RDW 13.6 % (11.7-14.6); RDW-SD 50.3 fL; WBC 5.37 10^3/uL (4.4-10.8)
[2024-10-25 07:53] LABS: Abs Immature Grans 0.00 10^3/uL (0.0-0.06); Immature Grans % 0.0 %; RBC Morphology Normal
[2024-10-25 08:06] LABS: ALT 23 U/L (14-59); AST 27 U/L (15-37); Albumin 3.6 g/dL (3.4-5.0); Alkaline Phosphatase 111 U/L (46-116); Anion Gap 6.1 mmol/L (3-11); BUN 20 mg/dL (7-18); Bilirubin, Total 0.5 mg/dL (0.2-1.0); CO2 28.9 mmol/L (21.0-32.0); Calcium 9.2 mg/dL (8.5-10.1); Chloride 106 mmol/L (98-107); Estimated GFR 87.92 (mL/min/1.73m2); Glucose 116 mg/dL (74-106); Magnesium 2.0 mg/dL (1.8-2.4); Potassium 3.8 mmol/L (3.5-5.1); Sodium 141 mmol/L (136-145); TSH (W/Ref FT4) 8.69 uIU/mL (0.36-3.74); Total Protein 7.1 g/dL (6.4-8.2); Troponin I 7 ng/L (<or=51)
[2024-10-25] MEDS: Apixaban 5 MG TAB PO (08:38)
--- NOTE | 2024-10-25 09:25 | ED.GENADUL_ITS ---
Discharge Plan Disposition Patient Disposition: Home Condition: Stable Discharge Details Clinical Impression: Atrial fibrillation Primary Care Provider: Lillian Huggins ED Provider: Diego Shields Home Meds and New Rx's Prescriptions: Continued diphenhydramine HCl [Benadryl] 25 mg capsule 25 mg PO TID PRN (Reason: allergy symptoms) Qty: 10 12RF multivitamin [Daily Multi-Vitamin] 1 EACH tablet 1 ea PO DAILY metoprolol tartrate 100 MG tablet 100 mg PO BID Qty: 180 0RF Eliquis 5 MG tablet 5 mg PO BID Qty: 60 3RF Discharge Instructions Instructions: Atrial fibrillation Additional Instructions: Please follow-up with your primary care physician. Call today to arrange follow-up. Return to the emergency department immediately for any worsening or new concerning symptoms. Referrals: Lillian Huggins MD [Primary Care Provider, Medicine] [facility] Mode of arrival: ambulatory . Date/Time Provider Initiated Documentation: 10/25/24 07:15 . Limitations to Documentation: no limitations . Information obtained by: patient . HPI Narrative: HISTORY OF PRESENT ILLNESS 78-year-old female with history of AFib and SVT presenting with racing heart and AFib. Patient reports improvement but experienced intolerable racing heart and AFib today. Diagnosed with AFib and SVT, not constant. Last week, had a 10-day episode of irregular heartbeat. 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 Last appointment in 08/2024, condition stable. Improvement noted last Tuesday, felt well by Tuesday, but awakened this morning by racing heart. Pulse too irregular to count. No chest tightness, sharp pain, dizziness, or lightheadedness. No caffeine, alcohol, tobacco, drugs, or herbal supplements. No restrictions on physical activity. More active during summer, did lawn mowing yesterday without immediate symptoms. On metoprolol twice daily, occasionally misses dose. Took metoprolol this morning but not Eliquis 5 mg. Related Data Home Medications ?Medication ?Instructions ?Recorded ?Confirmed multivitamin (Daily Multi-Vitamin 1 ea PO DAILY 10/25/24 tablet) apixaban 5 mg tablet (Eliquis) 5 mg PO BID #60 tabs 10/25/24 metoprolol tartrate 100 mg tablet 100 mg PO BID #180 t ab-caps 02/16/17 10/25/24 diphenhydramine HCl 25 mg capsule 25 mg PO TID PRN all ergy symptoms 08/13/21 10/25/24 (Benadryl) #10 caps Previous Rx's ?Medication ?Instructions ?Recorded apixaban 5 mg tablet (Eliquis) 5 mg PO BID #60 tabs metoprolol tartrate 100 mg tablet 100 mg PO BID #180 t ab-caps 02/16/17 diphenhydramine HCl 25 mg capsule 25 mg PO TID PRN all ergy symptoms 08/13/21 (Benadryl) #10 caps Allergies Allergy/AdvReac Type Severity Reaction Status Date / Time amoxicillin (Amoxicillin) AdvReac Mild Topical Verified 10/25/24 07:44 Irritation sulfamethoxazole (From AdvReac Mild Topical Verified 10/25/24 07:44 Bactrim) Irritation trimethoprim (From Bactrim) AdvReac Mild Topical Verified 10/25/24 07:44 Irritation General Stated Complaint: Arrhythmia AURE: 2 Review of Systems All systems reviewed & are unremarkable except as noted in HPI and below Psychiatric Psychiatric: Reports anxiety (about palpitations) Exam Const General: cooperative and no acute distress HENMT Mouth: moist mucous membranes Eyes Conjunctivae: normal conjunctivae Sclera: normal sclerae Neck Neck: trachea midline and supple Resp Auscultation: clear to auscultation bilaterally, no rales, no rhonchi and no wheezes Cardio Jugular venous pressure: no JVD Rate: regular rate and not tachycardic Rhythm: regular rhythm GI Palpation: soft, not firm, no guarding, no masses, not rigid and nontender Skin General skin exam: no rashes or lesions noted Neuro General: patient alert, patient awake, patient oriented x3 and tone normal Extrem General: no edema Psych Appearance: grossly normal Mental Status: mental status grossly normal Mood: anxious mood Course Vital Signs Vital signs: Vital Signs Temperature 36.2 C L 10/25/24 07:09 Pulse 98 H 10/25/24 07:09 Respiratory Rate 18 10/25/24 07:09 Blood Pressure 185/95 H 10/25/24 07:09 Pulse Oximetry 98 10/25/24 07:09 Temperature 36.2 C L 10/25/24 07:09 Temperature Source Tympanic 10/25/24 07:09 Pulse 87 10/25/24 07:46 Pulse 89 10/25/24 07:46 Respiratory Rate 21 10/25/24 07:46 Blood Pressure 128/77 10/25/24 07:46 Blood Pressure Mean 89 10/25/24 07:46 Blood Pressure Position Supine 10/25/24 07:09 Pulse Oximetry 99 10/25/24 07:46 Oxygen Delivery Method Room Air 10/25/24 07:09 Oxygen Flow Rate 0 10/25/24 07:09 Pain Level 0 10/25/24 07:34 Lab/Test Results Lab/Test Results: Laboratory Tests Range/Units 10/25/24 07:28 WBC (4.4-10.8) 10^3/uL 5.37 RBC (3.93-5.22) 10^6/uL 3.96 Hgb (11.2-15.7) g/dL 13.1 Hct (36.0-46.0) % 39.5 MCV (80-95) fL 100 H MCH (27.0-33.0) pg 33.1 H MCHC (32.0-36.0) % 33.2 RDW (11.7-14.6) % 13.6 Plt Count (130-400) 10^3/uL 116 L MPV (8.0-11.0) fL 12.6 H Immature Gran % % 0.0 Neutrophils % % 35.0 Lymphocytes % % 53.0 Atypical Lymphs % % 3 Monocytes % % 7.0 Eosinophils % % 2.0 Basophils % % 0.0 Nucleated RBC % (0.0-0.3) % 0.0 Absolute Neutrophils (1.2-6.7) 10^3/uL 1.88 Absolute Lymphocytes (1.2-3.4) 10^3/uL 3.01 Absolute Monocytes (0.1-0.8) 10^3/uL 0.38 Absolute Eosinophils (0.0-0.7) 10^3/uL 0.11 Absolute Basophils (0.0-0.2) 10^3/uL 0.00 RBC Morphology Normal Sodium (136-145) mmol/L 141 Potassium (3.5-5.1) mmol/L 3.8 Chloride (98-107) mmol/L 106 Carbon Dioxide (21.0-32.0) mmol/L 28.9 Anion Gap (3-11) mmol/L 6.1 BUN (7-18) mg/dL 20 H Creatinine (0.55-1.02) mg/dL 0.7 Est GFR (CKD-EPI 2020) (mL/min/1.73m2) 87.92 Glucose (74-106) mg/dL 116 H Calcium (8.5-10.1) mg/dL 9.2 Magnesium (1.8-2.4) mg/dL 2.0 Total Bilirubin (0.2-1.0) mg/dL 0.5 AST (15-37) U/L 27 ALT (14-59) U/L 23 Alkaline Phosphatase (46-116) U/L 111 Troponin I (<or=51) ng/L 7 Total Protein (6.4-8.2) g/dL 7.1 Albumin (3.4-5.0) g/dL 3.6 TSH (0.36-3.74) uIU/mL 8.69 H Free T4 (0.76-1.46) ng/dL 1.01 Medical Decision Making ASSESSMENT AND PLAN Patient with history of AFib and SVT, experiencing racing heart and irregular heartbeat. Recent episode lasted 10 days, concerns about medication adherence. Differential Diagnosis: AFib: History of A-fib, controlled heart rate with beta mookie. Thyroid dysfunction: Elevated TSH, normal free T4. Plan: Check thyroid levels. Electrolyte imbalance: Potential contributor to arrhythmia. Plan: Check potassium and magnesium levels. ED Course: Labs reviewed, nondiagnostic. TSH elevated, normal free T4. No significant electrolyte abnormalities. Troponin negative. Administered Eliquis 5 mg. Final Assessment: Heart rate controlled with beta blockers. Labs: Elevated TSH, normal free T4, no significant electrolyte abnormalities, negative troponin. Maintain medication schedule, increase water intake. Clinical Impression: AFib, dehydration, thyroid dysfunction, electrolyte imbalance. Disposition: Discharge home. Return if pulse >120 for several days or if symptoms worsen. 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 Resume physical therapy exercises. Monitor thyroid and electrolytes. Patient Education: Maintain medication schedule, increase water intake, resume physical therapy exercises. Discuss potential benefits of long-acting beta mookie. This document was written with the assistance of JESS Hoover. The patient consented to its use. Lab Data Labs: Laboratory Tests Range/Units 10/25/24 10/25/24 07:28 08:29 WBC (4.4-10.8) 10^3/uL 5.37 RBC (3.93-5.22) 10^6/uL 3.96 Hgb (11.2-15.7) g/dL 13.1 Hct (36.0-46.0) % 39.5 MCV (80-95) fL 100 H MCH (27.0-33.0) pg 33.1 H MCHC (32.0-36.0) % 33.2 RDW (11.7-14.6) % 13.6 Plt Count (130-400) 10^3/uL 116 L MPV (8.0-11.0) fL 12.6 H Immature Gran % % 0.0 Neutrophils % % 35.0 Lymphocytes % % 53.0 Atypical Lymphs % % 3 Monocytes % % 7.0 Eosinophils % % 2.0 Basophils % % 0.0 Nucleated RBC % (0.0-0.3) % 0.0 Absolute Neutrophils (1.2-6.7) 10^3/uL 1.88 Absolute Lymphocytes (1.2-3.4) 10^3/uL 3.01 Absolute Monocytes (0.1-0.8) 10^3/uL 0.38 Absolute Eosinophils (0.0-0.7) 10^3/uL 0.11 Absolute Basophils (0.0-0.2) 10^3/uL 0.00 RBC Morphology Normal Sodium (136-145) mmol/L 141 Potassium (3.5-5.1) mmol/L 3.8 Chloride (98-107) mmol/L 106 Carbon Dioxide (21.0-32.0) mmol/L 28.9 Anion Gap (3-11) mmol/L 6.1 BUN (7-18) mg/dL 20 H Creatinine (0.55-1.02) mg/dL 0.7 Est GFR (CKD-EPI 2020) (mL/min/1.73m2) 87.92 Glucose (74-106) mg/dL 116 H Calcium (8.5-10.1) mg/dL 9.2 Magnesium (1.8-2.4) mg/dL 2.0 Total Bilirubin (0.2-1.0) mg/dL 0.5 AST (15-37) U/L 27 ALT (14-59) U/L 23 Alkaline Phosphatase (46-116) U/L 111 Troponin I (<or=51) ng/L 7 11 Total Protein (6.4-8.2) g/dL 7.1 Albumin (3.4-5.0) g/dL 3.6 TSH (0.36-3.74) uIU/mL 8.69 H Free T4 (0.76-1.46) ng/dL 1.01 PFSH All Active Problems Atrial fibrillation (Chronic) Right nephrolithiasis (Acute) Hematuria (Acute) Discharge planning issues (Acute) Subclinical hypothyroidism (Acute) Dehydration (Acute) Prediabetes (Chronic) 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) Sensorineural hearing loss, bilateral (Acute 11/27/15) Transient cerebral ischemia (Acute 11/23/16) Atrial fibrillation with RVR (Acute) Recurrent UTI (urinary tract infection) (Acute) Medical History Paroxysmal atrial fibrillation Anxiety Edema Obesity Anxiety and depression Recurrent UTI Bilateral hearing loss Ataxia Dizziness Visual field defect Elevated TSH Hypoglycemia Prediabetes HLD (hyperlipidemia) PSVT (paroxysmal supraventricular tachycardia) Osteopenia Onychomycosis Bilateral tinnitus Hypertension Atrial fibrillation Surgical History No pertinent past surgical history Family History Father Heart disease Mother Hypertension Cancer cholangiocarcinoma Paternal Grandmother Cancer uterine ca Social History Smoking/Tobacco Use Status: Former Tobacco Use Quit Date: 02/21/11 Tobacco: How many years used: 45 Smoking risk assessment performed?: Yes Alcohol Intake: never Drug use: Never Substance use type: does not use Housing: house What type of physical activity do you participate in: none and sedentary lifestyle Do you feel safe at home: Yes Do you feel safe in your relationship?: Yes
[2024-10-25 09:30] LABS: Troponin I 11 ng/L (<or=51)
== END 2024-10-25 09:50 | disposition home or self-care (01) ==
PROVIDERS: Emergency Provider Student in an Organized Health Care Education/Training Program; PCP Family Medicine
DX: I48.91 Unspecified atrial fibrillation (principal)
CPT/HCPCS: 99284; 99283; 36415; 80053; 93005; 83735; 84439; 84443; 84484; 85025; 93010

== ENCOUNTER 2024-11-20 20:20 | Emergency (ER) | payer MEDICARE, MEDICAID, SELFPAY ==
[2024-11-20] VITALS (16 sets, daily range): BP systolic 147–183; BP diastolic 46–98; PULSE 68–83; RESP 9–26; TEMP 36.6; O2SAT 95–99
--- NOTE | 2024-11-20 20:00 | RT.EKG_ITS ---
APPROVED REPORT Exam: Resting ECG Reason for Exam: afib Patient Location: E HR:81 bpm ECG Measurements Heart Rate 81 AXIS OR 248 P 72 QRSd 82 QRS 1 QT 356 T 45 QTc 415 Conclusion Sinus rhythm...normal P axis, V-rate 60- 99 Prolonged OR interval...OR >220, V-rate 50- 90 Low voltage, precordial leads...precordial leads <1.0mV Normal [place] No acute ST changes There are no significant changes compared to prior EKG performed on 08/30/2024 at 12:57.
--- NOTE | 2024-11-20 20:17 | W.ED.GENAD ---
Discharge Plan Disposition Patient Disposition: Home Condition: Good Discharge Details Clinical Impression: Paroxysmal atrial fibrillation Primary Care Provider: Lillian Huggins ED Provider: Timothy Hayes Meds and New Rx's Prescriptions: Continued diphenhydramine HCl [Benadryl] 25 mg capsule 25 mg PO TID PRN (Reason: allergy symptoms) Qty: 10 12RF multivitamin [Daily Multi-Vitamin] 1 EACH tablet 1 ea PO DAILY metoprolol tartrate 100 MG tablet 100 mg PO BID Qty: 180 0RF Eliquis 5 MG tablet 5 mg PO BID Qty: 60 3RF Discharge Instructions Additional Instructions: You were seen for recurrent episode of heart racing which did resolve and you are now back in sinus rhythm. Your electrolytes and blood count are normal. You should continue your medications as before but do try to take them 12 hours apart as we discussed. Return to the hospital tomorrow to get your monitor placed. Follow-up with primary care. Return to ED for any syncope, chest pain, shortness of breath, prolonged heart racing, neurologic change, other concerns. Referrals: Lillian Huggins MD [Primary Care Provider, Medicine] [facility] General Mode of arrival: EMS. Date/Time Provider Initiated Documentation: 11/20/24 21:38. Limitations to Documentation: no limitations. Information obtained by: patient, RN notes reviewed and old records reviewed. HPI Narrative: Patient presents to ED by ambulance with episode of racing heart. Patient has history of atrial fibrillation. She is on metoprolol and Eliquis. She is scheduled to have a heart monitor placed tomorrow as she has been having problems with racing and palpitations over the last month. She was seen here on 25 October for similar presentation. Subsequently did follow-up with primary care. There have been no changes to medications. She is not having any type of chest pain or pressure, shortness of breath, lightheadedness or syncope. When it began tonight she did take her metoprolol early. It did not seem to be working and she continued to have racing heart rate which caused her to be more anxious. On arrival here she seems to have converted back to sinus rhythm. Related Data Home Medications ?Medication ?Instructions ?Recorded ?Confirmed multivitamin (Daily Multi-Vitamin 1 ea PO DAILY 11/23/16 11/20/24 tablet) apixaban 5 mg tablet (Eliquis) 5 mg PO BID #60 tabs 12/20/16 11/20/24 metoprolol tartrate 100 mg tablet 100 mg PO BID #180 tab-caps 02/16/17 11/20/24 diphenhydramine HCl 25 mg capsule 25 mg PO TID PRN allergy symptoms 08/13/21 11/20/24 (Benadryl) #10 caps Previous Rx's ?Medication ?Instructions ?Recorded apixaban 5 mg tablet (Eliquis) 5 mg PO BID #60 tabs 12/20/16 metoprolol tartrate 100 mg tablet 100 mg PO BID #180 tab-caps 02/16/17 diphenhydramine HCl 25 mg capsule 25 mg PO TID PRN allergy symptoms 08/13/21 (Benadryl) #10 caps Allergies Allergy/AdvReac Type Severity Reaction Status Date / Time amoxicillin (Amoxicillin) AdvReac Mild Topical Verified 11/20/24 20:20 Irritation sulfamethoxazole (From AdvReac Mild Topical Verified 11/20/24 20:20 Bactrim) Irritation trimethoprim (From Bactrim) AdvReac Mild Topical Verified 11/20/24 20:20 Irritation General AURE: 2 Exam Narrative Exam Narrative: Const: WDWN elderly female in NAD. VS per triage. HEENT: NC/AT. Normal facial exam. Neck: Supple. Trachea midline. Lungs: Normal respiratory effort. Lungs are clear. Cor: RRR without murmur. Good radial pulses. GI: Soft/ND/NT. Neuro: A+O x 3. Normal speech, mentation, gait. Cranial nerves II - XII grossly intact. No gross motor or sensory deficit. Medical Decision Making Patient presenting to ED after developing racing heart which did not initially slow down with metoprolol that she took earlier. At no point did she have chest pain or pressure, shortness of breath, lightheadedness or syncope. She has a history of paroxysmal atrial fibrillation and is on metoprolol and Eliquis. Previously here on the fourth for similar presentation with labs including delta troponin and TSH which were fine. Her EKG done on arrival is sinus rhythm with nonspecific ST changes, nothing acute and not significantly different from previous per my read. Her labs done on the fourth are unremarkable. I will repeat electrolytes and hemoglobin but do not feel that we need troponins. Will monitor while she is here. Patient remained in sinus rhythm while here. Hemoglobin and electrolytes are fine. We discussed the importance of trying to stay on every 12 hour dosing of her metoprolol and Eliquis. For the most part she is able to do this but occasionally falls asleep and takes her nighttime medication much later than usual. She will come back to the hospital tomorrow to get her heart monitor placed. Follow-up with primary care for further medication management. Return precautions provided. Medical Records Medical records reviewed: Yes I reviewed the patient's medical records. Lab Data Lab results reviewed: Yes I reviewed the patient's lab results. 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) Sensorineural hearing loss, bilateral (Acute 11/27/15) Transient cerebral ischemia (Acute 11/23/16) Atrial fibrillation with RVR (Acute) Recurrent UTI (urinary tract infection) (Acute) Medical History Paroxysmal atrial fibrillation Anxiety Edema Obesity Anxiety and depression Recurrent UTI Bilateral hearing loss Ataxia Dizziness Visual field defect Elevated TSH Hypoglycemia Prediabetes HLD (hyperlipidemia) PSVT (paroxysmal supraventricular tachycardia) Osteopenia Onychomycosis Bilateral tinnitus Hypertension Atrial fibrillation Surgical History No pertinent past surgical history Family History Father Heart disease Mother Hypertension Cancer cholangiocarcinoma Paternal Grandmother Cancer uterine ca Social History Smoking/Tobacco Use Status: Former Tobacco Use Quit Date: 02/21/11 Tobacco: How many years used: 45 Smoking risk assessment performed?: Yes Alcohol Intake: never Drug use: Never Substance use type: does not use Housing: house What type of physical activity do you participate in: none and sedentary lifestyle Do you feel safe at home: Yes Do you feel safe in your relationship?: Yes
[2024-11-20 20:43] LABS: HCT 38.9 % (36.0-46.0); HGB 12.8 g/dL (11.2-15.7); MCH 32.8 pg (27.0-33.0); MCHC 32.9 % (32.0-36.0); MCV 100 fL (80-95); MPV 12.7 fL (8.0-11.0); Platelet Count 124 10^3/uL (130-400); RBC 3.90 10^6/uL (3.93-5.22); RDW 14.1 % (11.7-14.6); RDW-SD 51.8 fL; WBC 4.70 10^3/uL (4.4-10.8)
[2024-11-20 20:55] LABS: Anion Gap 7.1 mmol/L (3-11); BUN 23 mg/dL (7-18); CO2 28.9 mmol/L (21.0-32.0); Calcium 9.2 mg/dL (8.5-10.1); Chloride 108 mmol/L (98-107); Estimated GFR 74.90 (mL/min/1.73m2); Glucose 107 mg/dL (74-106); Magnesium 2.0 mg/dL (1.8-2.4); Potassium 4.0 mmol/L (3.5-5.1); Sodium 144 mmol/L (136-145)
== END 2024-11-20 23:48 | disposition home or self-care (01) ==
PROVIDERS: Emergency Provider Emergency Medicine; PCP Family Medicine
DX: I48.0 Paroxysmal atrial fibrillation (principal)
CPT/HCPCS: 99284; 99283; 36415; 80048; 85027; 93005; 83735; 93010

== ENCOUNTER 2024-11-21 13:56 | Outpatient (CLI) | payer MEDICARE, MEDICAID, SELFPAY | END 2024-11-21 13:57 | disposition home or self-care (01) | PROVIDERS: PCP Family Medicine; Visit Provider Family Medicine | DX: I48.0 Paroxysmal atrial fibrillation (principal) | CPT/HCPCS: 93270 ==

== ENCOUNTER 2024-12-25 07:22 | Outpatient (CLI) | payer MEDICARE, MEDICAID, SELFPAY ==
--- NOTE | 2024-12-25 09:15 | W.CARDEVENT ---
Date of service: 12/25/24 Time of Service: 09:16 Cardiac Event Recorder Referring Provider:: Lillian Huggins Indications:: Paroxysmal atrial fibrillation Cardiac Event Note: This is a cardiac event monitor. Patient was monitored for 30 days Rhythm throughout was sinus. Average heart rate overall was 61. Minimum was 55, maximum 108 There were rare ventricular ectopic beats Atrial premature beats were noted.. There were self-limited atrial runs. Generally these were less than 10 beats in duration. Some were symptomatic There was no atrial fibrillation, no high-grade AV block, no pauses greater than 3 seconds Multiple symptoms were reported which correlated to atrial premature beats and brief atrial runs
== END 2024-12-25 07:23 | disposition home or self-care (01) ==
LOC: CARDOPNVT 07:22
PROVIDERS: PCP Family Medicine; Visit Provider Internal Medicine Cardiovascular Disease
DX: I48.0 Paroxysmal atrial fibrillation (principal); I49.1 Atrial premature depolarization
CPT/HCPCS: 93272